=== PATIENT | female | born 1945 | race Caucasian/White ===

== ENCOUNTER 2017-01-31 00:27 | Observation (INO) | payer MEDICARE ==
[2017-01-31] MEDS ORDERED: NITRO-BID 2% UD PACKETS TOP ONE (00:33)
[2017-01-31] MEDS ORDERED: Ativan 2 MG/1 ML VIAL IV ONE ×2 (00:39→01:40)
[2017-01-31] MEDS ORDERED: NITRO-BID 2% UD PACKETS ONE (00:41)
[2017-01-31] MEDS ORDERED: Ativan 2 MG/1 ML VIAL ONE ×2 (00:42→01:44)
--- NOTE | 2017-01-31 00:45 | ERPHSYRPT ---
- History of Present Illness Time Seen by Provider: 01/31/17 00:32 Historian: patient, family, EMS Exam Limitations: no limitations Physician History: patient unable to sleep the past two nights due to restless leg syndrome; get anxious; tonight developed some CP and sob mostly releived with ASA and NTG enroute; SOB resolved as well; no recent travel or exposures; hx of low K+; no trauma; no fever; some nausea; also upset because a good friend recently and the is tomorrow Timing/Duration: today (exacerbated by cp and sob), yesterday (onset), gradual onset, worse Activities at Onset: rest Quality: aching Location: epigastric Chest Pain Radiation: no radiation Severity of Pain-Max: moderate Severity of Pain-Current: mild Modifying Factors: Improves With: nitroglycerin (helps), aspirin (helps), sitting up (helps), other (restless leg aggravates) Associated Symptoms: nausea, shortness of breath Prior Chest Pain/Cardiac Workup: no prior chest pain Nitro Today/Relief: 0.4 mg x 1, provided by EMS Aspirin Treatment Today: 81 mg x 4, provided by EMS Allergies/Adverse Reactions: etodolac Allergy (Severe, Verified 01/31/17 00:58) Shortness of Breath risedronate sodium [From Actonel] Allergy (Severe, Verified 01/31/17 00:58) Hives adhesive tape Allergy (Verified 01/31/17 00:58) latex Adverse Reaction (Intermediate, Verified 01/31/17 00:58) Rash Home Medications: Gabapentin 300 mg PO TID #0 11/14/12 [History] Paroxetine HCl [Paxil] 40 mg PO DAILY 06/28/15 [History] Trazodone HCl 50 mg [Desyrel 50 mg] 50 mg PO HSPRN PRN 06/28/15 [History] Atorvastatin Calcium [Lipitor 40Mg] 40 mg PO HS 07/04/16 [History] Ferrous Sulfate 325 mg [Feosol 325 mg] 325 mg PO DAILY 07/04/16 [History] Omeprazole [Prilosec] 40 mg PO DAILY 07/04/16 [History] Potassium Chloride 10 Meq Tab* [Klor Con 10 MEQ] 10 meq PO DAILY 07/04/16 [ History] Ropinirole HCl [Requip] 1 mg PO BID 07/04/16 [History] Hx Tetanus, Diphtheria Vaccination/Date Given: Yes Hx Influenza Vaccination/Date Given: Yes Hx Pneumococcal Vaccination/Date Given: Yes - Review of Systems Constitutional: No Symptoms Eyes: No Symptoms Ears, Nose, & Throat: No Symptoms Respiratory: Dyspnea (tonight releived with asa and ntg), No Cough, No Cyanosis , No Wheezing Cardiac: Chest Pain, No Edema, No Palpitations, No Syncope, No Orthopnea Abdominal/Gastrointestinal: Nausea, No Abdominal Pain, No Vomiting, No Diarrhea , No Constipation Genitourinary Symptoms: No Symptoms Musculoskeletal: Other (restless leg syndrome), No Back Pain, No Neck Pain, No Fall, No Injury Skin: No Symptoms Neurological: Other (restless leg syndrome), No Dizziness, No Headache, No Paralysis, No Seizure, No Vertigo Psychological: No Symptoms Endocrine: No Symptoms Hematologic/Lymphatic: Easy Bruising Immunological/Allergic: No Symptoms - Past Medical History Pertinent Past Medical History: Yes Neurological History: Other ENT History: Macular Degeneration Cardiac History: Arrhythmia, High Cholesterol, Hypertension Respiratory History: Asthma, Sleep Apnea Endocrine Medical History: Hypothyroidism Musculoskeletal History: Osteoporosis, Rheumatoid Arthritis GI Medical History: Other History: Other Psycho-Social History: Depression Female Reproductive Disorders: Breast Cancer Other Medical History: trouble swallowing. bladder leakage, restless legs. bells palsy. gout - Past Surgical History Past Surgical History: Yes Neuro Surgical History: No Pertinent History Cardiac: Cardiac Catheterization Respiratory: No Pertinent History Gastrointestinal: Appendectomy, Cholecystectomy Genitourinary: No Pertinent History Musculoskeletal: Orthopedic Surgery, Other Female Surgical History: Hysterectomy, Lumpectomy Other Surgical History: nerve from neck to face repaired from bells palsy, bilateral knee replacement, bilator rotator cuff, feet and toes surgeries, R hand carpal tunnel repair. r hand 4 fingers surgery. partial hysterectomy; left hand carpal tunnel surgery. - Social History Smoking Status: Never smoker Exposure to second hand smoke: No Alcohol Use: None Drug Use: none Patient Lives Alone: No Significant Family History: cancer (3 sisters with breast cancer, mother with breast cancer and was diseased from colon cancer. Uncle with breast cancer and mulitple aunts with breast cancer.) - Female History Hx Now: No - Physical Exam General Appearance: mild distress (restless leg syndrome), alert, anxiety, obese Eye Exam: PERRL/EOMI, eyes nml inspection, No photophobia Ears, Nose, Throat Exam: normal ENT inspection, TMs normal, pharynx normal, moist mucous membranes Neck Exam: normal inspection, non-tender, supple, full range of motion, JVD ( slight), lymphadenopathy (isolated post cervical tender right), No meningismus, No carotid bruit Respiratory Exam: lungs clear, airway intact, diminished breath sounds, crackles /rales (few basilar rales), No chest tenderness, No respiratory distress, No rhonchi, No wheezing, No pleural rub Cardiovascular Exam: regular rate/rhythm, normal heart sounds, normal peripheral pulses, capillary refill 2-3 sec, edema (trace), No murmur Gastrointestinal/Abdomen Exam: soft, normal bowel sounds, No tenderness, No guarding, No rebound, No organomegaly Pelvic Exam: deferred Rectal Exam: deferred Back Exam: normal inspection, normal range of motion, No CVA tenderness, No vertebral tenderness, No rash Extremity Exam: normal inspection, normal range of motion, pedal edema (trace), No sosa's sign Neurologic Exam: alert, oriented x 3, cooperative, inspector weights and measures II-XII nml as tested, nml cerebellar function, nml station & gait, No normal mood/affect (anxious) Skin Exam: normal color, warm, dry, No rash, No cyanosis Lymphatic Exam: adenopathy (isolated tender small post cervical node right neck) SpO2 Interpretation: normal SpO2: 95 Oxygen Delivery: Room Air - Course Nursing assessment & vital signs reviewed: Yes EKG Interpreted by Me: RATE (83), Sinus Rhythm, NORMAL AXIS, NORMAL INTERVALS, NORMAL QRS, Non-specific ST Changes, Other (LVH) Rhythm Strip: Rate (82), Normal Sinus Rhythm - Radiology Exams Chest X-ray Interpretation: Interpreted by me, No Pneumonia, No Pneumothorax, Nml Heart Size (borderline), No Infiltrates, Other (poor inspiration with mild congestion) Ordered Tests: Active Orders 24 hr Category Date Time Status Bedrest with BRP/BSC ROUTINE Activity 01/31/17 02:32 Ordered Accucheck ACHS Care 01/31/17 02:31 Ordered Admission/Status Order ROUTINE Care 01/31/17 02:31 Ordered Admission/Status Order ROUTINE Care 01/31/17 02:31 Ordered Call Admit Doctor for Orders ROUTINE Care 01/31/17 02:31 Ordered Dock Worker STAT Care 01/31/17 00:33 Active Code Status Order ROUTINE Care 01/31/17 02:31 Ordered Code Status Order ROUTINE Care 01/31/17 02:32 Ordered EKG-ER Only STAT Care 01/31/17 00:33 Active IV Care Q6H Care 01/31/17 02:31 Ordered IV Care Q6H Care 01/31/17 02:32 Ordered IV Insertion STAT Care 01/31/17 00:33 Active Implement CHF Pathway ROUTINE Care 01/31/17 02:31 Ordered Implement Chest Pain Pathway ROUTINE Care 01/31/17 02:32 Ordered Pulse Oximetry (ED) STAT Care 01/31/17 00:33 Active Re-Check Vital Signs STAT Care 01/31/17 00:33 Active Hiro Hose, Apply ROUTINE Care 01/31/17 02:31 Ordered Hiro Hose, Apply ROUTINE Care 01/31/17 02:32 Ordered Telemetry ROUTINE Care 01/31/17 02:31 Ordered Telemetry ROUTINE Care 01/31/17 02:32 Ordered Weight,Daily 0600 Care 01/31/17 02:31 Ordered Weight,Daily 0600 Care 01/31/17 02:32 Ordered 1800 Calorie ADA Diet 01/31/17 Breakfast Ordered CHEST 1 VIEW (PORTABLE) Stat Exams 01/31/17 00:34 Taken BMP AM.LAB Lab 01/31/17 04:00 Ordered CBC AM.LAB Lab 01/31/17 04:00 Ordered CBC W DIFF Stat Lab 01/31/17 00:52 Completed CMP Stat Lab 01/31/17 00:52 Completed D-DIMER QUANTITATION Stat Lab 01/31/17 00:52 Completed LIPID PROFILE AM.LAB Lab 01/31/17 04:00 Ordered MAGNESIUM Stat Lab 01/31/17 00:52 Completed NT PRO BNP AM.LAB Lab 01/31/17 04:00 Ordered NT PRO BNP Stat Lab 01/31/17 00:52 Completed PROTIME WITH INR Stat Lab 01/31/17 00:52 Completed TROPONIN Q3H Lab 01/31/17 00:52 Completed TROPONIN Q3H Lab 01/31/17 03:45 Ordered TROPONIN Q3H Lab 01/31/17 06:45 Ordered TROPONIN Q3H Lab 01/31/17 09:45 Ordered TROPONIN Q3H Lab 01/31/17 12:45 Ordered EKG Q8HX2,QAMX3,PRN RT 01/31/17 02:32 Ordered Oxygen NASAL CANNULA 2 lpm RT 01/31/17 02:31 Ordered Pulse Oximetry OVERNIGHT RT 01/31/17 02:33 Ordered Pulse Oximetry Q4H RT 01/31/17 02:32 Ordered Transfer Order Routine Transfer 01/31/17 02:30 Ordered Medication Summary Generic Name Dose Route Start Last Admin Trade Name Freq PRN Reason Stop Dose Admin Sodium Chloride 1,000 mls @ 50 mls/hr 01/31/17 00:45 01/31/17 00:51 Sodium Chloride 0.9% 1000 Ml IV 03/02/17 00:44 50 mls/hr .Q20H FRIEDA Administration Potassium Chloride 40 meq 01/31/17 10:00 01/31/17 01:54 Potassium Chl 40 Meq/30 Ml Oral Solution PO 03/02/17 09:59 40 meq DAILY FRIEDA Administration Discontinued Medications Generic Name Dose Route Start Last Admin Trade Name Freq PRN Reason Stop Dose Admin Furosemide 40 mg 01/31/17 01:40 01/31/17 01:54 Lasix 40 Mg/4 Ml IV 01/31/17 01:41 40 mg STAT ONE Administration Furosemide Confirm 01/31/17 01:44 Lasix 40 Mg/4 Ml Administered 01/31/17 01:45 Dose 40 mg .ROUTE .STK-MED ONE Lorazepam 1 mg 01/31/17 00:39 01/31/17 00:51 Ativan 2 Mg/1 Ml Vial IV 01/31/17 00:40 1 mg STAT ONE Administration Lorazepam Confirm 01/31/17 00:42 Ativan 2 Mg/1 Ml Vial Administered 01/31/17 00:43 Dose 2 mg .ROUTE .STK-MED ONE Lorazepam 1 mg 01/31/17 01:40 01/31/17 01:54 Ativan 2 Mg/1 Ml Vial IV 01/31/17 01:41 1 mg STAT ONE Administration Lorazepam Confirm 01/31/17 01:44 Ativan 2 Mg/1 Ml Vial Administered 01/31/17 01:45 Dose 2 mg .ROUTE .STK-MED ONE Nitroglycerin 1 gm 01/31/17 00:33 01/31/17 00:51 Nitro-Bid 2% Ud Packets TOP 01/31/17 00:34 1 gm STAT ONE Administration Nitroglycerin Confirm 01/31/17 00:41 Nitro-Bid 2% Ud Packets Administered 01/31/17 00:42 Dose 1 gm .ROUTE .STK-MED ONE Lab/Rad Data: Laboratory Result Diagrams 01/31/17 00:52 01/31/17 00:52 Laboratory Results 01/31/17 01/31/17 01/31/17 Range/Units 00:52 00:52 00:52 WBC (4.0-10.5) K/mm3 RBC (4.1-5.4) M/mm3 Hgb (12.0-16.0) gm/dl Hct (35-47) % MCV (78-100) fl MCH (26-32) pg MCHC (32-36) g/dl RDW (11.5-14.0) % Plt Count (150-450) K/mm3 MPV (6-9.5) fl Gran % (36.0-66.0) % Lymphocytes % (24.0-44.0) % Monocytes % (0.0-12.0) % Eosinophils % (0.00-5.0) % Basophils % (0.0-0.4) % Basophils # (0-0.4) INR 1.01 (0.8-3.0) D-Dimer 0.356 (0.00-0.49) mg/L Sodium 142 (136-145) mEq/L Potassium 3.6 (3.5-5.1) mEq/L Chloride 108 H (98-107) mEq/L Carbon Dioxide 23.0 (21-32) mEq/L Anion Gap 14.1 (5-15) MEQ/L BUN 22 H (9-20) mg/dL Creatinine 1.16 (0.55-1.30) mg/dl Estimated GFR 49 ML/MIN Glucose 108 (70-110) MG/DL Calcium 9.0 (8.5-10.1) mg/dL Magnesium 1.9 (1.8-2.4) mg/dL Total Bilirubin 0.3 (0.2-1.0) mg/dL AST 13 L (15-37) U/L ALT 14 (12-78) U/L Alkaline Phosphatase 103 (46-116) U/L Troponin I < 0.017 (0.000-0.056) ng/ml NT-Pro-B Natriuret Pep 332 H (0-125) pg/ml Serum Total Protein 6.5 (6.4-8.2) gm/dL Albumin 3.6 (3.4-5.0) g/dL 01/31/17 Range/Units 00:52 WBC 6.9 (4.0-10.5) K/mm3 RBC 3.96 L (4.1-5.4) M/mm3 Hgb 11.8 L (12.0-16.0) gm/dl Hct 36.0 (35-47) % MCV 90.9 (78-100) fl MCH 29.7 (26-32) pg MCHC 32.8 (32-36) g/dl RDW 14.0 (11.5-14.0) % Plt Count 254 (150-450) K/mm3 MPV 9.7 H (6-9.5) fl Gran % 51.8 (36.0-66.0) % Lymphocytes % 34.7 (24.0-44.0) % Monocytes % 9.3 (0.0-12.0) % Eosinophils % 3.9 (0.00-5.0) % Basophils % 0.3 (0.0-0.4) % Basophils # 0.02 (0-0.4) INR (0.8-3.0) D-Dimer (0.00-0.49) mg/L Sodium (136-145) mEq/L Potassium (3.5-5.1) mEq/L Chloride (98-107) mEq/L Carbon Dioxide (21-32) mEq/L Anion Gap (5-15) MEQ/L BUN (9-20) mg/dL Creatinine (0.55-1.30) mg/dl Estimated GFR ML/MIN Glucose (70-110) MG/DL Calcium (8.5-10.1) mg/dL Magnesium (1.8-2.4) mg/dL Total Bilirubin (0.2-1.0) mg/dL AST (15-37) U/L ALT (12-78) U/L Alkaline Phosphatase (46-116) U/L Troponin I (0.000-0.056) ng/ml NT-Pro-B Natriuret Pep (0-125) pg/ml Serum Total Protein (6.4-8.2) gm/dL Albumin (3.4-5.0) g/dL reviewed - Progress Progress: improved (with meds), re-examined Air Movement: good Progress Note: 01/31/17 01:27 some improvement with meds; still restless; no pain; no sob 01/31/17 02:27 not getting enough releif with meds; Dr Haas director river [facility] consulted and will admit ; patient and family notified Blood Culture(s) Obtained: No Antibiotics given: No Discussed with .: Waldo (consulted and will admit) Will see patient in: hospital (observation) Counseled pt/family regarding: lab results, diagnosis, need for follow-up, rad results - Departure Time of Disposition: 02:29 Departure Disposition: Observation Clinical Impression: HTN (hypertension), Type 2 diabetes mellitus, Anxiety, Depression, Morbid obesity, CHF (congestive heart failure), Restless leg syndrome Condition: Serious Critical Care Time: No Referrals: MARIA ANTONIA HURT [Primary Care Provider] - Instructions: Heart Failure
[2017-01-31] MEDS: Sodium Chloride 0.9% 1000 ML 1,000 ML IV SCH ×2 (00:51→21:04)
[2017-01-31 00:55] LABS: BASOPHIL % 0.3 % (0.0-0.4); Eosinophil % 3.9 % (0.00-5.0); Granulocytes % 51.8 % (36.0-66.0); Lymphocytes % 34.7 % (24.0-44.0); Mean Cell Volume 90.9 fl (78-100); Mean Platelet Volume 9.7 fl (6-9.5); Monocytes % 9.3 % (0.0-12.0); Platelet Count 254 K/mm3 (150-450); Red Blood Count 3.96 M/mm3 (4.1-5.4); White Blood Count 6.9 K/mm3 (4.0-10.5)
[2017-01-31 00:57] LABS: Mean Corpuscular Hemoglobin 29.7 pg (26-32)
[2017-01-31 01:10] LABS: INR 1.01 (0.8-3.0); PROTIME 11.3 SECONDS (9.95-12.35)
[2017-01-31 01:27] LABS: ALBUMIN 3.6 g/dL (3.4-5.0); ANION GAP 14.1 MEQ/L (5-15); BILIRUBIN,TOTAL 0.3 mg/dL (0.2-1.0); MAGNESIUM 1.9 mg/dL (1.8-2.4); Potassium 3.6 mEq/L (3.5-5.1); Total Protein 6.5 gm/dL (6.4-8.2)
[2017-01-31] MEDS ORDERED: Lasix 40 MG/4 ML IV ONE (01:40)
[2017-01-31] MEDS ORDERED: Lasix 40 MG/4 ML ONE (01:44)
[2017-01-31] MEDS: POTASSIUM CHL 40 MEQ/30 ML ORAL SOLUTION PO SCH (01:54)
[2017-01-31] MEDS ORDERED: Zofran 4 MG/2 ML VIAL IV PRN (02:31)
[2017-01-31] MEDS ORDERED: MILK OF MAGNESIA 30 ML PO PRN (02:31)
[2017-01-31] MEDS ORDERED: Senokot-S Tablet PO PRN (02:31)
[2017-01-31] MEDS ORDERED: MAALOX ES 30 ML UNIT DOSE PO PRN (02:31)
[2017-01-31] MEDS ORDERED: TYLENOL 325 MG PO PRN (02:31)
[2017-01-31 07:37] LABS: Mean Cell Volume 91.3 fl (78-100); Mean Platelet Volume 9.7 fl (6-9.5); Platelet Count 229 K/mm3 (150-450); Red Blood Count 3.91 M/mm3 (4.1-5.4); White Blood Count 6.5 K/mm3 (4.0-10.5)
[2017-01-31 08:10] LABS: Mean Corpuscular Hemoglobin 29.6 pg (26-32)
[2017-01-31 08:24] LABS: ANION GAP 10.2 MEQ/L (5-15); Potassium 4.4 mEq/L (3.5-5.1)
--- NOTE | 2017-01-31 08:27 | XRAY ---
Indication: Chest pain and short of breath. Comparison: July 04, 2016. Portable chest underinflated today accentuating the cardiopulmonary structures. Subtle right base infiltrate versus atelectasis. Upper lungs clear. Bony thorax intact again with mild osteopenia and degenerative changes. Impression: Underinflated chest. Subtle right base infiltrate versus atelectasis. Correlate clinically.
[2017-01-31] MEDS ORDERED: PROVENTIL COMMON CANISTER IH PRN (09:05)
[2017-01-31] MEDS: Ecotrin 325 MG PO SCH (10:16)
[2017-01-31] MEDS: NORVASC 5 MG PO SCH (12:44)
--- NOTE | 2017-01-31 13:57 | PCM.HP ---
History of Present Illness - Chief Complaint Chief Complaint: CHF, C/P R/O History of Present Illness: is a 71 year old female pt of Dr. Patterson who was seen in office yesterday. She was unable to sleep for 2 nights because of RLS. Dr. Patterson wanted to do a cardiac workup. Pt ended up going home, then returning to see DR. Carroll in ER last night. She is a difficult historian, but apparently she was having 10/10 substernal chest pain, non radiating, with SOB. No diaphoresis , + palpitations. She was admitted to rule out [place]. Currently she is somnolent, wakes to light touch, oriented when awake but drifts off during her own sentences. She states she fell yesterday at home; denies syncope. She states she hasn't slept for 3 days and she's tired. She states her leg are not bothering her when she's asleep. It doesn't appear that she received any medicines that would cause hypersomnolence. - Review of Systems Constitutional: Chills Respiratory: Short Of Breath Cardiac: Chest Pain, Edema (LE bilat) Musculoskeletal: Fall Psychological: No Anxiety, No Depression, No Suicidal Ideations Hematologic/Lymphatic: Easy Bruising All Other Systems: Reviewed and Negative Medications & Allergies Home Medications: Home Medication List Gabapentin 300 mg PO TID #0 11/14/12 [History Confirmed 01/31/17] Paroxetine HCl [Paxil] 40 mg PO DAILY 06/28/15 [History Confirmed 01/31/17] Trazodone HCl 50 mg [Desyrel 50 mg] 50 mg PO HSPRN PRN 06/28/15 [History Confirmed 01/31/17] Atorvastatin Calcium [Lipitor 40Mg] 40 mg PO HS 07/04/16 [History Confirmed ] Ferrous Sulfate 325 mg [Feosol 325 mg] 325 mg PO DAILY 07/04/16 [History Confirmed 01/31/17] Omeprazole [Prilosec] 40 mg PO DAILY 07/04/16 [History Confirmed 01/31/17] Potassium Chloride 10 Meq Tab* [Klor Con 10 MEQ] 10 meq PO DAILY 07/04/16 [ History Confirmed 01/31/17] Ropinirole HCl [Requip] 1 mg PO BID 07/04/16 [History Confirmed 01/31/17] Albuterol 2.5 mg/3 ml Neb [Proventil 2.5 mg/3 ml Neb] 2.5 mg IH Q4HRT PRN #150 ml 07/08/16 [Rx Confirmed 01/31/17] Cefdinir [Omnicef 300 mg] 300 mg PO BID #12 capsule 07/08/16 [Rx Confirmed 01/31/17] Hydrochlorothiazide 25 mg [hydroDIURIL 25 MG] 25 mg PO DAILY #30 tablet [Rx Confirmed 01/31/17] Insulin Glargine [Lantus Insulin] 10 unit SQ AMINSULIN #0 unit 07/08/16 [Rx Confirmed 01/31/17] Losartan Potassium 50 mg [Cozaar 50 MG] 50 mg PO HS #30 tablet 07/08/16 [ Rx Confirmed 01/31/17] Metoprolol Succinate 50 mg [Toprol Xl 50 MG] 50 mg PO HS #30 tablet.sa [Rx Confirmed 01/31/17] Prednisone 20 mg [Deltasone 20 mg] 20 mg PO UD #9 tablet 07/08/16 [Rx Confirmed 01/31/17] Doxycycline Monohydrate 100 mg PO BID 01/31/17 [History Confirmed 01/31/17] Levothyroxine Sodium 75 Mcg [Synthroid 75 Mcg] 75 mcg PO DAILY 01/31/17 [ History Confirmed 01/31/17] Allergies/Adverse Reactions: Allergies Allergy/AdvReac Type Severity Reaction Status Date / Time etodolac Allergy Severe Shortness Verified 01/31/17 00:58 of Breath risedronate sodium Allergy Severe Hives Verified 01/31/17 00:58 [From Actonel] adhesive tape Allergy Verified 01/31/17 00:58 latex AdvReac Intermediate Rash Verified 01/31/17 00:58 - Past Medical History Past Medical History: Yes Neurological History: Other ENT History: Macular Degeneration Cardiac History: Arrhythmia, High Cholesterol, Hypertension Respiratory History: Asthma, Sleep Apnea Endocrine Medical History: Hypothyroidism Musculoskelatal History: Osteoporosis, Rheumatoid Arthritis GI Medical History: Other History: Other Pyscho-Social History: Depression Reproductive Disorders: Breast Cancer Comment: trouble swallowing. bladder leakage, restless legs. bells palsy. gout - Female History Hx Last Menstrual Period: N/A Are you now?: No - Past Surgical History Past Surgical History: Yes Neuro Surgical History: No Pertinent History Cardiac History: Cardiac Catheterization Respiratory Surgery: No Pertinent History GI Surgical History: Appendectomy, Cholecystectomy Genitourinary Surgical Hx: No Pertinent History Musculskeletal Surgical Hx: Orthopedic Surgery, Other Female Surgical History: Hysterectomy, Lumpectomy Other Surgical History: nerve from neck to face repaired from bells palsy, bilateral knee replacement, bilator rotator cuff, feet and toes surgeries, R hand carpal tunnel repair. r hand 4 fingers surgery. partial hysterectomy; left hand carpal tunnel surgery. - Social History Smoking Status: Never smoker Exposure to second hand smoke: No Alcohol: None Drug Use: none Significant Family History: cancer (3 sisters with breast cancer, mother with breast cancer and was diseased from colon cancer. Uncle with breast cancer and mulitple aunts with breast cancer.) - Physical Exam Vital Signs: Vital Signs - 24 hr Temp Pulse Pulse Resp BP Pulse Ox 01/31/17 12:00 93 L 01/31/17 11:37 98.3 F 90 20 184/80 93 L 01/31/17 09:05 86 18 98 01/31/17 08:00 94 L 01/31/17 07:36 97.5 F 88 18 171/74 94 L 01/31/17 03:36 98.2 F 83 18 166/73 96 01/31/17 02:35 95 01/31/17 02:32 96 01/31/17 02:08 87 189/90 01/31/17 00:52 97.7 F 82 84 20 154/73 94 L Results - Labs Lab/Micro Results: Accuchecks Accucheck Value: 116 Accucheck Value: 102 Lab Results-Last 24 Hours 01/31/17 01/31/17 01/31/17 Range/Units 04:05 07:00 07:00 WBC 6.5 (4.0-10.5) K/mm3 RBC 3.91 L (4.1-5.4) M/mm3 Hgb 11.6 L (12.0-16.0) gm/dl Hct 35.7 (35-47) % MCV 91.3 (78-100) fl MCH 29.6 (26-32) pg MCHC 32.5 (32-36) g/dl RDW 14.0 (11.5-14.0) % Plt Count 229 (150-450) K/mm3 MPV 9.7 H (6-9.5) fl Sodium (136-145) mEq/L Potassium (3.5-5.1) mEq/L Chloride (98-107) mEq/L Carbon Dioxide (21-32) mEq/L Anion Gap (5-15) MEQ/L BUN (9-20) mg/dL Creatinine (0.55-1.30) mg/dl Estimated GFR ML/MIN Glucose (70-110) MG/DL Calcium (8.5-10.1) mg/dL Troponin I < 0.017 < 0.017 (0.000-0.056) ng/ml NT-Pro-B Natriuret Pep (0-125) pg/ml Triglycerides (30-200) mg/dL Cholesterol (100-200) mg/dL LDL Cholesterol (5-99) mg/dL HDL Cholesterol (35-60) mg/dL Heart Disease Risk Ratio 01/31/17 01/31/17 01/31/17 Range/Units 07:00 10:00 12:20 WBC (4.0-10.5) K/mm3 RBC (4.1-5.4) M/mm3 Hgb (12.0-16.0) gm/dl Hct (35-47) % MCV (78-100) fl MCH (26-32) pg MCHC (32-36) g/dl RDW (11.5-14.0) % Plt Count (150-450) K/mm3 MPV (6-9.5) fl Sodium 142 (136-145) mEq/L Potassium 4.4 (3.5-5.1) mEq/L Chloride 108 H (98-107) mEq/L Carbon Dioxide 28.0 (21-32) mEq/L Anion Gap 10.2 (5-15) MEQ/L BUN 20 (9-20) mg/dL Creatinine 1.21 (0.55-1.30) mg/dl Estimated GFR 47 ML/MIN Glucose 101 (70-110) MG/DL Calcium 8.8 (8.5-10.1) mg/dL Troponin I < 0.017 < 0.017 (0.000-0.056) ng/ml NT-Pro-B Natriuret Pep 262 H (0-125) pg/ml Triglycerides 51 (30-200) mg/dL Cholesterol 116 (100-200) mg/dL LDL Cholesterol 53 (5-99) mg/dL HDL Cholesterol 64 H (35-60) mg/dL Heart Disease Risk Ratio 1.8 Accuchecks Accucheck Value: 116 Accucheck Value: 102 - Radiology Impressions Radiology Exams & Impressions: Radiology Procedures Category Date Time Status ECHO W/2D AND DOPPLER [US] Routine Exams 01/31/17 10:00 Ordered - Other Procedures and Tests Respiratory Therapy 01/31/17 09:05 Respiratory MDI UD 02/01/17 05:00 EKG ONCE 02/02/17 05:00 EKG DAILY 02/03/17 05:00 EKG DAILY Assessment/Plan (1) Chest pain Current Visit: Yes Status: Acute Assessment & Plan: first two troponins are negative; would await 3 more to definitively rule out [place]. Code(s): R07.9 - CHEST PAIN, UNSPECIFIED (2) Somnolence Current Visit: Yes Status: Acute Assessment & Plan: She is easily rousable and conversant, but drifts to sleep in the middles of sentences. States she's very tired because she hasn't slept the last 3 days. Will monitor vital signs, if concerns would do further workup but I think the somnolence is reasonable in light of her history. (3) Restless leg syndrome Current Visit: Yes Status: Chronic (4) HTN (hypertension) Current Visit: Yes Status: Chronic Code(s): I10 - ESSENTIAL (PRIMARY) HYPERTENSION (5) Type 2 diabetes mellitus Current Visit: Yes Status: Chronic (6) ELANA (obstructive sleep apnea) Current Visit: No Status: Chronic Assessment & Plan: Will see if pt needs CPAP machine for her stay here. Code(s): G47.33 - OBSTRUCTIVE SLEEP APNEA (ADULT) (PEDIATRIC) (7) DVT prophylaxis Current Visit: No Status: Acute Code(s): [id number] -
[2017-01-31] MEDS ORDERED: PROVENTIL 2.5 MG/3 ML NEB IH PRN (16:02)
[2017-01-31] MEDS ORDERED: DESYREL 50 MG PO PRN (16:02)
[2017-01-31] MEDS ORDERED: Requip 0.5 MG ONE (16:31)
[2017-01-31] MEDS: SYNTHROID 75 MCG PO SCH (16:43)
[2017-01-31] MEDS: Paxil 20 MG PO SCH (16:43)
[2017-01-31] MEDS: NEURONTIN 300 MG PO SCH ×2 (16:44→22:07)
[2017-01-31] MEDS: Requip 0.5 MG PO SCH ×2 (16:44→22:07)
[2017-01-31] MEDS: Lantus Insulin SQ SCH (16:44)
[2017-01-31] MEDS: Protonix 40MG Tablet PO SCH (16:44)
[2017-01-31] MEDS ORDERED: APRESOLINE 20 MG/ML INJ IV PRN (19:55)
[2017-01-31] MEDS ORDERED: LIPITOR 40MG PO SCH (22:00)
[2017-01-31] MEDS ORDERED: Toprol Xl 50 MG PO SCH (22:00)
[2017-01-31] MEDS ORDERED: NON-FORMULARY ITEM (Ropinirole Hcl [Requip] 1 MG) PO SCH (22:00)
[2017-01-31] MEDS ORDERED: Cozaar 50 MG PO SCH (22:00)
--- NOTE | 2017-02-01 06:18 | PCM.DS ---
Discharge Summary Date of Admission: 01/31/17 03:06 Admitting Physician: INDIGO LANDRY Primary Care Provider: MARIA ANTONIA HURT Allergies Allergies etodolac Allergy (Severe, Verified 01/31/17 00:58) Shortness of Breath risedronate sodium [From Actonel] Allergy (Severe, Verified 01/31/17 00:58) Hives adhesive tape Allergy (Verified 01/31/17 00:58) latex Adverse Reaction (Intermediate, Verified 01/31/17 00:58) Rash Hospital Summary - Hospital Course Hospital Course: patient was admitted with chest pain, hadn't slept well and was extremely fatigued at the initial admission. doing well now. no chest pain overnight, DE ruled out. slept well and feels well today. has no complaints. - Vitals & Intake/Output Vital Signs: Vital Signs Temperature 98.3 F 02/01/17 03:48 Pulse Rate 89 02/01/17 03:48 Respiratory Rate 18 02/01/17 03:48 Blood Pressure 129/60 02/01/17 03:48 O2 Sat by Pulse Oximetry 95 02/01/17 04:00 Intake & Output: Intake & Output 01/29/17 01/30/17 01/31/17 02/01/17 11:59 11:59 11:59 11:59 Intake Total 1021 2459 Output Total 1999 1950 Balance -979 509 Weight 114.26 kg - Lab Result Diagrams: 01/31/17 07:00 01/31/17 07:00 Lab Results-Last 24 Hrs: Accuchecks Date 01/31/17 Time 21:50 Accucheck Value: 124 Accucheck Value: 106 Accucheck Value: 116 Accucheck Value: 102 Lab Results-Last 24 Hours 01/31/17 01/31/17 01/31/17 Range/Units 07:00 07:00 07:00 WBC 6.5 (4.0-10.5) K/mm3 RBC 3.91 L (4.1-5.4) M/mm3 Hgb 11.6 L (12.0-16.0) gm/dl Hct 35.7 (35-47) % MCV 91.3 (78-100) fl MCH 29.6 (26-32) pg MCHC 32.5 (32-36) g/dl RDW 14.0 (11.5-14.0) % Plt Count 229 (150-450) K/mm3 MPV 9.7 H (6-9.5) fl Sodium 142 (136-145) mEq/L Potassium 4.4 (3.5-5.1) mEq/L Chloride 108 H (98-107) mEq/L Carbon Dioxide 28.0 (21-32) mEq/L Anion Gap 10.2 (5-15) MEQ/L BUN 20 (9-20) mg/dL Creatinine 1.21 (0.55-1.30) mg/dl Estimated GFR 47 ML/MIN Glucose 101 (70-110) MG/DL Calcium 8.8 (8.5-10.1) mg/dL Troponin I < 0.017 (0.000-0.056) ng/ml NT-Pro-B Natriuret Pep 262 H (0-125) pg/ml Triglycerides 51 (30-200) mg/dL Cholesterol 116 (100-200) mg/dL LDL Cholesterol 53 (5-99) mg/dL HDL Cholesterol 64 H (35-60) mg/dL Heart Disease Risk Ratio 1.8 01/31/17 01/31/17 Range/Units 10:00 12:20 WBC (4.0-10.5) K/mm3 RBC (4.1-5.4) M/mm3 Hgb (12.0-16.0) gm/dl Hct (35-47) % MCV (78-100) fl MCH (26-32) pg MCHC (32-36) g/dl RDW (11.5-14.0) % Plt Count (150-450) K/mm3 MPV (6-9.5) fl Sodium (136-145) mEq/L Potassium (3.5-5.1) mEq/L Chloride (98-107) mEq/L Carbon Dioxide (21-32) mEq/L Anion Gap (5-15) MEQ/L BUN (9-20) mg/dL Creatinine (0.55-1.30) mg/dl Estimated GFR ML/MIN Glucose (70-110) MG/DL Calcium (8.5-10.1) mg/dL Troponin I < 0.017 < 0.017 (0.000-0.056) ng/ml NT-Pro-B Natriuret Pep (0-125) pg/ml Triglycerides (30-200) mg/dL Cholesterol (100-200) mg/dL LDL Cholesterol (5-99) mg/dL HDL Cholesterol (35-60) mg/dL Heart Disease Risk Ratio Micro Results-Entire Visit: Accuchecks Date 01/31/17 Time 21:50 Accucheck Value: 124 Accucheck Value: 106 Accucheck Value: 116 Accucheck Value: 102 - Radiology Exams Ordered Rad Exams-Entire Visit: Radiology Procedures Category Date Time Status ECHO W/2D AND DOPPLER [US] Routine Exams 01/31/17 10:00 Ordered - Procedures and Test Procedures and Tests throughout Hospitalization: Therapy Orders & Screens 01/31/17 02:32 EKG Q8HX2,QAMX3,PRN Comment: 01/31/17 03:50 RT Screen per Nursing Assess ONCE Comment: Protocol Order Physician Instructions: Greater than 3 points order RT Admission Screen Reason For Exam: Triggered on Admission Diagnosis: CHF, C/P R/O Diagnosis: CHF, C/P R/O Pneumonia: No Home O2: No Asthma: Yes CHF: Yes Home CPAP/BIPAP: No Home Nebs/MDI: Yes Total Points: 12 01/31/17 08:37 EKG ROUTINE Comment: Diagnosis: CHF, C/P R/O 01/31/17 09:05 Respiratory MDI UD Comment: ALBUTEROL MDI Q4PRN Diagnosis: CHF, C/P R/O 01/31/17 16:10 Respiratory Nebulizer UD Comment: albuterol q4prn Diagnosis: CHF, C/P R/O 02/01/17 05:00 EKG ONCE Comment: Diagnosis: CHF, C/P R/O 02/02/17 05:00 EKG DAILY Comment: Diagnosis: CHF, C/P R/O 02/03/17 05:00 EKG DAILY Comment: Diagnosis: CHF, C/P R/O Discharge Exam General Appearance: no apparent distress, alert Respiratory Exam: normal breath sounds, lungs clear, No respiratory distress Cardiovascular Exam: regular rate/rhythm, normal heart sounds Gastrointestinal/Abdomen Exam: soft, No tenderness, No mass Extremity Exam: normal inspection, normal range of motion Final Diagnosis/Problem List - Final Discharge Diagnosis/Problem (1) Chest pain Current Visit: Yes Status: Acute (2) Restless leg syndrome Current Visit: Yes Status: Chronic (3) Type 2 diabetes mellitus Current Visit: Yes Status: Chronic - Discharge Disposition: Home, Self-Care Condition: Good Prescriptions: Continue Gabapentin 300 mg PO TID #0 Trazodone HCl 50 mg [Desyrel 50 mg] 50 mg PO HSPRN PRN PRN Reason: Insomnia Paroxetine HCl [Paxil] 40 mg PO DAILY Atorvastatin Calcium [Lipitor 40Mg] 40 mg PO HS Ropinirole HCl [Requip] 1 mg PO BID Potassium Chloride 10 Meq Tab* [Klor Con 10 MEQ] 10 meq PO DAILY Omeprazole [Prilosec] 40 mg PO DAILY Ferrous Sulfate 325 mg [Feosol 325 mg] 325 mg PO DAILY Losartan Potassium 50 mg [Cozaar 50 MG] 50 mg PO HS #30 tablet Prednisone 20 mg [Deltasone 20 mg] 20 mg PO UD #9 tablet Insulin Glargine [Lantus Insulin] 10 unit SQ AMINSULIN #0 unit Cefdinir [Omnicef 300 mg] 300 mg PO BID #12 capsule Metoprolol Succinate 50 mg [Toprol Xl 50 MG] 50 mg PO HS #30 tablet.sa Hydrochlorothiazide 25 mg [hydroDIURIL 25 MG] 25 mg PO DAILY #30 tablet Albuterol 2.5 mg/3 ml Neb [Proventil 2.5 mg/3 ml Neb] 2.5 mg IH Q4HRT PRN #150 ml PRN Reason: Shortness Of Breath/Wheezing Levothyroxine Sodium 75 Mcg [Synthroid 75 Mcg] 75 mcg PO DAILY Discontinued Doxycycline Monohydrate 100 mg PO BID Follow up with: MARIA ANTONIA HURT [Primary Care Provider] -
[2017-02-01 06:58] VITALS: PULSE 78
[2017-02-01] MEDS: Lantus Insulin SQ SCH (07:50)
[2017-02-01] MEDS: POTASSIUM CHL 40 MEQ/30 ML ORAL SOLUTION PO SCH (09:29)
[2017-02-01] MEDS: Requip 0.5 MG PO SCH (09:29)
[2017-02-01] MEDS: Ecotrin 325 MG PO SCH (09:29)
[2017-02-01] MEDS: Paxil 20 MG PO SCH (09:29)
[2017-02-01] MEDS: NEURONTIN 300 MG PO SCH (09:29)
[2017-02-01] MEDS: Protonix 40MG Tablet PO SCH (09:29)
[2017-02-01] MEDS: SYNTHROID 75 MCG PO SCH (09:29)
[2017-02-01] MEDS: NORVASC 5 MG PO SCH (09:30)
[2017-02-01] MEDS ORDERED: hydroDIURIL 25 MG PO SCH (10:00)
[2017-02-01] MEDS ORDERED: ENOXAPARIN SODIUM SQ SCH (10:00)
[2017-02-01] MEDS ORDERED: NON-FORMULARY ITEM (Omeprazole [Prilosec] 40 MG) PO SCH (10:00)
[2017-02-01] MEDS ORDERED: NON-FORMULARY ITEM (Paroxetine Hcl [Paxil] 40 MG) PO SCH (10:00)
[2017-02-01] MEDS ORDERED: Klor Con 10 MEQ PO SCH (10:00)
[2017-02-01 11:26] VITALS: BP 189/77; O2SAT 94
== END 2017-02-01 11:15 | disposition home or self-care (01) ==
LOC: ED 00:27 → MED SURG 03:06
PROVIDERS: ADMIT Family Medicine; ATTEND Internal Medicine
DX: R07.9 Chest pain, unspecified (principal); G25.81 Restless legs syndrome; E11.9 Type 2 diabetes mellitus without complications; Z79.4 Long term (current) use of insulin; I10 Essential (primary) hypertension; J45.909 Unspecified asthma, uncomplicated; G47.33 Obstructive sleep apnea (adult) (pediatric); E03.9 Hypothyroidism, unspecified; M81.0 Age-related osteoporosis without current pathological fracture; M06.9 Rheumatoid arthritis, unspecified; E78.00 Pure hypercholesterolemia, unspecified; G51.0 Bell's palsy; M10.9 Gout, unspecified; R40.0 Somnolence; Z79.899 Other long term (current) drug therapy; Z85.3 Personal history of malignant neoplasm of breast; Z80.3 Family history of malignant neoplasm of breast; Z80.0 Family history of malignant neoplasm of digestive organs
CPT/HCPCS: 36000; 36415; 71010; 80048; 80053; 80061; 82962; 83721; 83735; 83880; 84484; 85025; 85027; 85379; 85610; 93005; 93041; 93268; 94760; 96360; 96361; 96374; 96375; 96376; 99285; G0378; J0360; J1650; J1940; J2060; A9270-GY

== ENCOUNTER 2018-11-19 14:07 | Observation (INO) | payer MEDICARE ==
[2018-11-19] MEDS ORDERED: TYLENOL 325 MG PO PRN (14:32)
[2018-11-19] MEDS ORDERED: Colace 100 MG PO PRN (14:36)
[2018-11-19] MEDS ORDERED: Sodium Chloride 0.9% 10 ML FLUSH Syringe IV PRN (14:45)
[2018-11-19] MEDS ORDERED: solu-MEDROL 125 MG IV ONE (15:00)
[2018-11-19 15:05] LABS: BASOPHIL % 0.7 % (0.0-0.4); Basophil (Absolute #) 0.03 (0-0.4); Eosinophil % 6.4 % (0.00-5.0); Eosinophil (Absolute #) 0.26 (0-0.5); Granulocyte Absolute (ANC) 1.92 (1.4-6.9); Granulocytes % 47.4 % (36.0-66.0); Hematocrit 39.9 % (35-47); Hemoglobin 12.9 gm/dl (12.0-16.0); Lymphocyte (Absolute #) 1.24 (1.0-4.6); Lymphocytes % 30.5 % (24.0-44.0); Mean Cell Volume 90.3 fl (78-100); Mean Corpuscular Hemoglobin 29.2 pg (26-32); Mean Corpuscular Hgb Concent. 32.3 g/dl (32-36); Mean Platelet Volume 9.8 fl (6-9.5); Monocyte (Absolute #) 0.61 (0.0-1.3); Platelet Count 220 K/mm3 (150-450); Red Blood Count 4.42 M/mm3 (4.1-5.4); Red Cell Distribution Width 13.1 % (11.5-14.0); White Blood Count 4.1 K/mm3 (4.0-10.5)
[2018-11-19 15:25] LABS: ALBUMIN 4.4 g/dL (3.5-5.0); ANION GAP 13.9 MEQ/L (5-15); BILIRUBIN,TOTAL 0.6 mg/dL (0.2-1.3); Calcium 9.2 mg/dL (8.4-10.2); Creatinine 1 1.2 mg/dL (0.52-1.04); Potassium 3.9 mmol/L (3.5-5.1); Total Protein 7.2 g/dL (6.3-8.2)
[2018-11-19 15:38] LABS: INFLUENZA A NEGATIVE (NEGATIVE); INFLUENZA B NEGATIVE (NEGATIVE); RESPIRATORY SYNCTIAL VIRUS NEGATIVE (Negative)
--- NOTE | 2018-11-19 15:39 | XRAY ---
Indication: Nonproductive cough. COPD exacerbation. Comparison: January 01, 2018. PA/lateral chest again demonstrates a few incidental calcified granulomas and minimal left upper lobe fibrosis/scarring. No focal infiltrate, consolidation, or large effusion. Heart and mediastinal structures within normal limits. Bony thorax intact again with mild osteopenia and moderate degenerative changes. Impression: Stable nonacute chest with chronic features.
[2018-11-19] MEDS: ROCEPHIN 1 Gm-D5w 50 ml Bag** 1 G/50 ML IVPB IV SCH (15:40)
[2018-11-19] MEDS: Zithromax 500 MG/ 250 ML NaCl Premix 500 MG/250 ML IVPB IV SCH (16:16)
[2018-11-19] MEDS ORDERED: DESYREL 50 MG PO PRN (16:31)
[2018-11-19] MEDS ORDERED: PROVENTIL 2.5 MG/3 ML NEB IH PRN (16:31)
[2018-11-19] MEDS: Tessalon Perles 100 MG PO PRN ×2 (17:45→22:53)
[2018-11-19] MEDS: DUONEB 0.5-3 MG/3 ml Neb IH SCH ×2 (20:47→20:48)
[2018-11-19] MEDS ORDERED: NovoLOG Insulin SQ PRN (21:44)
[2018-11-19] MEDS ORDERED: ATORVASTATIN CALCIUM 40 MG PO SCH (22:00)
[2018-11-19] MEDS ORDERED: solu-MEDROL 125 MG IV SCH (22:00)
[2018-11-19] MEDS: NEURONTIN 300 MG PO SCH (22:31)
[2018-11-19] MEDS: ZOCOR 20MG PO SCH (22:31)
[2018-11-19] MEDS: Sodium Chloride 0.9% 10 ML FLUSH Syringe IV SCH (22:32)
[2018-11-19] MEDS: Cozaar 50 MG PO SCH (22:32)
[2018-11-19] MEDS: Toprol Xl 50 MG PO SCH (22:32)
[2018-11-20] MEDS: xanAX 0.5 MG PO PRN ×3 (00:47→21:14)
[2018-11-20] MEDS: DUONEB 0.5-3 MG/3 ml Neb IH SCH ×5 (01:10→14:31)
[2018-11-20] MEDS: Sodium Chloride 0.9% 10 ML FLUSH Syringe IV SCH ×3 (06:53→21:13)
[2018-11-20] MEDS: Lantus Insulin SQ SCH (07:51)
[2018-11-20] MEDS: ROCEPHIN 1 Gm-D5w 50 ml Bag** 1 G/50 ML IVPB IV SCH (09:54)
[2018-11-20] MEDS: ENOXAPARIN SODIUM SQ SCH (09:55)
[2018-11-20] MEDS: SYNTHROID 100 MCG PO SCH (09:56)
[2018-11-20] MEDS: Tessalon Perles 100 MG PO PRN ×2 (09:56→16:30)
[2018-11-20] MEDS: Paxil 20 MG PO SCH (09:56)
[2018-11-20] MEDS: NEURONTIN 300 MG PO SCH ×3 (09:57→21:13)
[2018-11-20] MEDS: Protonix 40MG Tablet PO SCH (09:57)
[2018-11-20] MEDS: Klor Con 10 MEQ PO SCH (09:57)
[2018-11-20] MEDS ORDERED: NON-FORMULARY ITEM (Omeprazole [Prilosec] 40 MG) PO SCH (10:00)
[2018-11-20] MEDS ORDERED: NON-FORMULARY ITEM (Paroxetine Hcl [Paxil] 40 MG) PO SCH (10:00)
[2018-11-20] MEDS: Zithromax 500 MG/ 250 ML NaCl Premix 500 MG/250 ML IVPB IV SCH (15:51)
[2018-11-20] MEDS ORDERED: NORVASC 5 MG PO ONE (16:59)
[2018-11-20] MEDS: Cozaar 50 MG PO SCH (21:13)
[2018-11-20] MEDS: Toprol Xl 50 MG PO SCH (21:14)
[2018-11-20] MEDS: ZOCOR 20MG PO SCH (21:14)
[2018-11-21] MEDS: Sodium Chloride 0.9% 10 ML FLUSH Syringe IV SCH (06:50)
[2018-11-21] MEDS: Lantus Insulin SQ SCH (08:06)
[2018-11-21] MEDS ORDERED: Apresoline 25 MG TABLET PO PRN (09:35)
[2018-11-21] MEDS: ENOXAPARIN SODIUM SQ SCH (09:53)
[2018-11-21] MEDS: Paxil 20 MG PO SCH (09:54)
[2018-11-21] MEDS: SYNTHROID 100 MCG PO SCH (09:54)
[2018-11-21] MEDS: ROCEPHIN 1 Gm-D5w 50 ml Bag** 1 G/50 ML IVPB IV SCH (09:54)
[2018-11-21] MEDS: NEURONTIN 300 MG PO SCH (09:54)
[2018-11-21] MEDS: Klor Con 10 MEQ PO SCH (09:54)
[2018-11-21] MEDS: Protonix 40MG Tablet PO SCH (09:54)
[2018-11-21] MEDS ORDERED: hydroDIURIL 25 MG PO SCH (10:00)
[2018-11-21] MEDS ORDERED: NORVASC 5 MG PO SCH (10:00)
--- NOTE | 2018-11-21 11:10 | PCM.DCORD ---
- Discharge Discharge Date: 11/21/18 Disposition: Home, Self-Care Condition: Good Prescriptions: New Docusate Sodium 100 mg [Colace 100 MG] 100 mg PO BID PRN PRN #30 capsule PRN Reason: Constipation Losartan Potassium 100 mg PO DAILY #30 tablet Amlodipine Besylate 5 mg [Norvasc 5 mg] 5 mg PO DAILY #30 tablet Cefdinir [Omnicef] 300 mg PO BID #10 capsule Benzonatate [Tessalon Perle] 2 cap PO TID PRN #60 capsule PRN Reason: Cough Azithromycin 250 mg [Zithromax 250 MG TABLET] 250 mg PO DAILY #3 tablet Continue Gabapentin 300 mg PO TID #0 Trazodone HCl 50 mg [Desyrel 50 mg] 50 mg PO HSPRN PRN PRN Reason: Insomnia Paroxetine HCl [Paxil] 40 mg PO DAILY Atorvastatin Calcium [Lipitor 40Mg] 40 mg PO HS Potassium Chloride 10 Meq Tab* [Klor Con 10 MEQ] 10 meq PO DAILY Omeprazole [Prilosec] 40 mg PO DAILY Insulin Glargine [Lantus Insulin] 10 unit SQ AMINSULIN #0 unit Metoprolol Succinate 50 mg [Toprol Xl 50 MG] 50 mg PO HS #30 tablet.sa Albuterol 2.5 mg/3 ml Neb [Proventil 2.5 mg/3 ml Neb] 2.5 mg IH Q4HRT PRN #150 ml PRN Reason: Shortness Of Breath/Wheezing Levothyroxine Sodium 100 Mcg [Synthroid 100 Mcg] 100 mcg PO DAILY Discontinued Losartan Potassium 50 mg [Cozaar 50 MG] 50 mg PO HS #30 tablet Prednisone 20 mg [Deltasone 20 mg] 20 mg PO UD #9 tablet Cefdinir [Omnicef 300 mg] 300 mg PO BID #12 capsule Follow up with: MARIA ANTONIA HURT [Primary Care Provider] - 1 Week
[2018-11-21 11:43] VITALS: BP 151/68; PULSE 54; O2SAT 97
--- NOTE | 2018-11-22 11:40 | HP ---
HISTORY OF PRESENT ILLNESS: This is a 72 year-old patient of mine who presented to the clinic yesterday complaining of cough without relief and temperature up to 103.2F. She reports the cough started on Thursday. She also felt very tired. She reports Albuterol helped some but not as much as it should. She also reports sneezing, rhinorrhea, headache and coughing. She has had close contact with her great-grandchildren who had respiratory syncytial virus. She reports she did have a flu immunization this year. Overnight the patient reports the cough is better with the Tessalon Perles but she continues to have some cough and feels fatigued. She also has increased stress at home with her son who has metastatic cancer and is currently in the hospital. She reports at this time there would be no one at home to help take care of her but tomorrow there would be. REVIEW OF SYSTEMS: No constipation. No diarrhea except one episode on Thursday. No dysuria. No lower extremity swelling. No rashes. Otherwise the review of systems is negative. PAST MEDICAL HISTORY: Seasonal allergies, breast cancer, chronic obstructive pulmonary disease, depression, diabetes mellitus type 2, hyperlipidemia, hypertension, gout, narcolepsy, restless leg syndrome, mild sleep apnea. PAST SURGICAL HISTORY: Appendectomy. Cholecystectomy. Hysterectomy. Left hand surgery. Right and left shoulder surgery. Left knee replacement. Foot surgery. Upper endoscopy with dilatation. Right hand surgery. Right knee replacement. Breast lumpectomy. MEDICATIONS: Please see the medication reconciliation form which I reviewed. ALLERGIES: EODOLAC. RISEDRONATE SODIUM. ADHESIVE TAPE. LATEX. SOCIAL HISTORY: She lives alone. She does not currently smoke. No alcohol use. FAMILY HISTORY: Noncontributory. PHYSICAL EXAMINATION: VITAL SIGNS: Temperature current 97F, temperature max 98.2F, heart rate 67 to 90, respiratory rate 18 to 22, blood pressure 129 to 147 over 71 to 90, weight 117.4 kg. Oxygen saturation 91 to 96% on room air. GENERAL: The patient is sitting up in her chair, a pleasant talkative lady in no acute distress, frequently coughing. CVS: She has a regular rate and rhythm. CHEST: Prolonged expiration but equal breath sounds. No crackles. No wheezes. ABDOMEN: Soft, nontender, nondistended with normal bowel sounds. EXTREMITIES: No clubbing, cyanosis or edema. SKIN: Warm, dry and intact. LABORATORY DATA AND TESTS: CBC within normal limits. CMP with creatinine 1.2. Influenza A/B and respiratory syncytial virus negative. Chest x-ray with no acute findings. Please see the radiologist report for the full dictation. ASSESSMENT AND PLAN: 1) CHRONIC OBSTRUCTIVE PULMONARY DISEASE EXACERBATION: She was started on IV steroids but developed some jitteriness with these and trouble sleeping so those were discontinued last night. She was also started on ceftriaxone and azithromycin. She reports Ana Lilia Adamson are helping, will continue her breathing treatments. She has improved since yesterday. 2) DIABETES MELLITUS TYPE 2: Will continue with home dose of insulin as well as Accu-Chek and sliding scale if needed. 3) HYPERTENSION: Will continue with her home antihypertensive. 4) HISTORY OF DEPRESSION: Continue with her home medications. 5) DEEP VENOUS THROMBOSIS PROPHYLAXIS: Will use Lovenox 40 mg subcutaneously daily and CARLOS hose.
--- NOTE | 2018-11-23 15:37 | DS ---
DISCHARGE DIAGNOSES: 1) ACUTE CHRONIC OBSTRUCTIVE PULMONARY DISEASE EXACERBATION. 2) DIABETES MELLITUS TYPE 2. 3) HYPERTENSION. 4) DEEP VENOUS THROMBOSIS PROPHYLAXIS. 5) CODE STATUS. DISCHARGE PHYSICAL EXAMINATION: VITALS: Temperature current 97.0F, temperature max 98.4F, heart rate 52 to 77, respiratory rate 16 to 18, blood pressure 128 to 195 over 60 to 82 currently 128/60. Oxygen saturation 93 to 95% on room air. GENERAL: The patient is a pleasant talkative lady sitting up in bed in no acute distress. CVS: Heart has a regular rate and rhythm. No murmurs, gallops or rubs are appreciated. CHEST: Clear to auscultation bilaterally. No crackles or wheezes are appreciated. No tachypnea. No retractions. She has occasional cough that is worse when she talks. ABDOMEN: Soft, nontender, nondistended with normal bowel sounds. EXTREMITIES: No clubbing, cyanosis or edema. SKIN: Warm, dry and intact. HOSPITAL COURSE: 1) ACUTE CHRONIC OBSTRUCTIVE PULMONARY DISEASE EXACERBATION: She was started on IV ceftriaxone and azithromycin as well as IV Solu-Medrol. The IV Solu-Medrol was discontinued on her first night as she developed jitteriness and difficulty sleeping. She has done well with the [employer]. I am going to discharge her to take five more days of Cefdinir 300 mg p.o. b.i.d. and three more days of azithromycin 250 mg p.o. daily and have her follow up with me closely in the clinic. She will continue Albuterol if needed at home. 2) DIABETES MELLITUS TYPE 2: I will have her continue her home dose of Lantus and Accu-Chek's at home as hemoglobin was less than 6 here. 3) HYPERTENSION: Her blood pressure was high at times during the hospitalization at the time of discharge was normal. I had increased her losartan from 50 to 100 mg and added amlodipine, will plan to discharge her on her home dose of metoprolol, losartan 100 mg daily and amlodipine 5 mg daily. 4) DEEP VENOUS THROMBOSIS PROPHYLAXIS: She was on Lovenox while she was here. 5) CODE STATUS: I discussed her code status with her and if something would happen suddenly where she would stop breathing or her heart would stop beating she does not want to be resuscitated. DISCHARGE MEDICATIONS: Please see the discharge order. DISPOSITION: The patient was discharged to home in good condition to follow up with me this week.
== END 2018-11-21 11:50 | disposition home or self-care (01) ==
LOC: MED SURG 14:07
PROVIDERS: ADMIT Internal Medicine; ATTEND Internal Medicine
DX: J44.1 Chronic obstructive pulmonary disease with (acute) exacerbation (principal); R51 Headache; E11.9 Type 2 diabetes mellitus without complications; R53.83 Other fatigue; I10 Essential (primary) hypertension; Z79.01 Long term (current) use of anticoagulants
CPT/HCPCS: 36415; 71046; 80053; 82962; 83036; 83880; 85025; 87040; 87631; 93005; 94760; G0378; J0456; J0696; J1650; J2930; A9270-GY

== ENCOUNTER 2019-02-15 17:03 | Emergency (ER) | payer MEDICARE ==
[2019-02-15 18:05] VITALS: BP 198/82; PULSE 73; O2SAT 98
--- NOTE | 2019-02-15 18:44 | ERPHSYRPT ---
- History of Present Illness Source: patient Exam Limitations: no limitations Patient Subjective Stated Complaint: went to [facility] for an increase in her restless legs x 4 days. aramis gets SOB due to the increases twitching.denies CP. has had similar episodes in the past. Triage Nursing Assessment: alert and anxious. ray has had an increase of her restless legs x 4 days. only thing that helps is walking. the legs hurt at the knees. has notbeen able to sleep due to the increased twitching.. nothing has changed 4 days ago that would increase her symptoms. states becomes SOB due to the increase in twitching. pain in her knees. Physician History: Pt is a 73 y/o female that presented from [facility]. She has a h/o RLS, and is on Requip. Today she had myoclonic jerks, and it was so bad, she could not sleep or walk. She states, that Dr Hurt, could not see her today, so she went to [facility]. Pt denies any other complains, and her symproms are just those described. Timing/Duration: yesterday Severity: moderate Modifying Factors: Improves With: nothing Associated Symptoms: denies symptoms Allergies/Adverse Reactions: etodolac Allergy (Severe, Verified 01/31/17 00:58) Shortness of Breath risedronate sodium [From Actonel] Allergy (Severe, Verified 01/31/17 00:58) Hives adhesive tape Allergy (Verified 01/31/17 00:58) latex Adverse Reaction (Intermediate, Verified 01/31/17 00:58) Rash Home Medications: Gabapentin 300 mg PO TID #0 11/14/12 [History] Paroxetine HCl [Paxil] 40 mg PO DAILY 06/28/15 [History] Trazodone HCl 50 mg [Desyrel 50 mg] 50 mg PO HSPRN PRN 06/28/15 [History] Atorvastatin Calcium [Lipitor 40Mg] 40 mg PO HS 07/04/16 [History] Omeprazole [Prilosec] 40 mg PO DAILY 07/04/16 [History] Potassium Chloride 10 Meq Tab* [Klor Con 10 MEQ] 10 meq PO DAILY 07/04/16 [ History] Levothyroxine Sodium 100 Mcg [Synthroid 100 Mcg] 100 mcg PO DAILY 11/19/18 [History] Hx Tetanus, Diphtheria Vaccination/Date Given: Yes Hx Influenza Vaccination/Date Given: Yes Hx Pneumococcal Vaccination/Date Given: Yes - Review of Systems Constitutional: No Fever, No Chills Eyes: No Symptoms Ears, Nose, & Throat: No Symptoms Respiratory: No Cough, No Dyspnea Cardiac: No Chest Pain, No Edema, No Syncope Abdominal/Gastrointestinal: No Abdominal Pain, No Nausea, No Vomiting, No Diarrhea Genitourinary Symptoms: No Dysuria Musculoskeletal: No Back Pain, No Neck Pain Skin: No Rash Neurological: Other (myoclonic jerks.) Psychological: No Symptoms - Past Medical History Pertinent Past Medical History: Yes Neurological History: Other ENT History: Cataracts, Macular Degeneration Cardiac History: Arrhythmia, High Cholesterol, Hypertension Respiratory History: Asthma, COPD, Pneumonia, Sleep Apnea Endocrine Medical History: Hypothyroidism Musculoskeletal History: Osteoporosis, Rheumatoid Arthritis GI Medical History: No Pertinent History History: Other Psycho-Social History: Depression Female Reproductive Disorders: Breast Cancer Other Medical History: bladder leakage, restless legs. bells palsy. gout. Left sided Breast CA - Past Surgical History Past Surgical History: Yes Neuro Surgical History: Other Cardiac: Cardiac Catheterization Respiratory: No Pertinent History Gastrointestinal: Appendectomy, Cholecystectomy Genitourinary: No Pertinent History Musculoskeletal: Orthopedic Surgery, Other Female Surgical History: Hysterectomy, Lumpectomy Other Surgical History: nerve from neck to face repaired from bells palsy, bilateral knee replacement, bilator rotator cuff, feet and toes surgeries, R hand carpal tunnel repair. r hand 4 fingers surgery. partial hysterectomy; left hand carpal tunnel surgery. - Social History Smoking Status: Never smoker Exposure to second hand smoke: No Alcohol Use: None Drug Use: none Patient Lives Alone: No Significant Family History: cancer (3 sisters with breast cancer, mother with breast cancer and was diseased from colon cancer. Uncle with breast cancer and mulitple aunts with breast cancer.) - Female History Hx Now: No - Nursing Vital Signs Nursing Vital Signs: Initial Vital Signs Temperature 98.1 F 02/15/19 17:14 Pulse Rate 81 02/15/19 17:14 Respiratory Rate 20 02/15/19 17:14 Blood Pressure 178/92 02/15/19 17:14 O2 Sat by Pulse Oximetry 97 02/15/19 17:14 Pain Scale Pain Intensity 8 - Physical Exam General Appearance: no apparent distress, alert Eye Exam: PERRL/EOMI, eyes nml inspection Ears, Nose, Throat Exam: normal ENT inspection, TMs normal, pharynx normal, moist mucous membranes Neck Exam: normal inspection, non-tender, supple, full range of motion Respiratory Exam: normal breath sounds, lungs clear, No respiratory distress Cardiovascular Exam: regular rate/rhythm, normal heart sounds, normal peripheral pulses Gastrointestinal/Abdomen Exam: soft, normal bowel sounds, No tenderness, No mass Back Exam: normal inspection, normal range of motion, No CVA tenderness, No vertebral tenderness Extremity Exam: normal inspection, normal range of motion, pelvis stable Neurologic Exam: alert, oriented x 3, cooperative, etiquette teacher II-XII nml as tested, other (Myoclonic jerks.) SpO2: 98 - Course Nursing assessment & vital signs reviewed: Yes Ordered Tests: Medication Summary Generic Name Dose Route Start Last Admin Trade Name Freq PRN Reason Stop Dose Admin Pregabalin 100 mg 02/15/19 22:00 02/15/19 18:02 Lyrica 100mg PO 03/17/19 21:59 100 mg BID FRIEDA Administration - Progress Progress: improved Progress Note: 02/15/19 18:[address] Hurt, as pt did not know what meds she is taking, and complains just of RLS. Dr Hurt, would like to see the pt in the office tomorrow. I gave the pt Lyrica 100mg PO once, and pt improved quickly. She is cleared for d/c, and should f/u with Dr Hurt. 02/15/19 18:44 Discussed with : Leonardo Will see patient in: office Counseled pt/family regarding: need for follow-up - Departure Departure Disposition: Home Clinical Impression: Myoclonic jerking Condition: Stable Critical Care Time: No Referrals: MARIA ANTONIA HURT [Primary Care Provider] - Additional Instructions: ZF/U with Dr Hurt tomorrow. Pt did improve with Lyrica 100mg once.
[2019-02-15] MEDS ORDERED: LYRICA 100MG PO SCH (22:00)
== END 2019-02-15 18:50 | disposition home or self-care (01) ==
LOC: ED 17:03
DX: G25.3 Myoclonus (principal); J44.9 Chronic obstructive pulmonary disease, unspecified; I10 Essential (primary) hypertension; G47.30 Sleep apnea, unspecified; E03.8 Other specified hypothyroidism; M81.0 Age-related osteoporosis without current pathological fracture; M06.9 Rheumatoid arthritis, unspecified; Z85.3 Personal history of malignant neoplasm of breast; G51.0 Bell's palsy; M10.9 Gout, unspecified; Z79.899 Other long term (current) drug therapy
CPT/HCPCS: 93005; 99283; A9270-GY

== ENCOUNTER 2019-04-28 22:55 | Inpatient (IN) | payer MEDICARE ==
[2019-04-28] MEDS ORDERED: MORPHINE SULFATE 2 MG INJ IV ONE (22:58)
[2019-04-28] MEDS ORDERED: NITRO-BID 2% UD PACKETS TOP ONE (22:58)
[2019-04-28] MEDS ORDERED: Pepcid 20 MG VIAL IV ONE ×2 (22:58→23:08)
[2019-04-28] MEDS ORDERED: PROTONIX 40 MG IV IV ONE ×2 (23:01→23:08)
[2019-04-28] MEDS ORDERED: NITRO-BID 2% UD PACKETS ONE (23:08)
[2019-04-28] MEDS ORDERED: MORPHINE SULFATE 2 MG INJ ONE (23:09)
[2019-04-28 23:11] LABS: BASOPHIL % 0.3 % (0.0-0.4); Basophil (Absolute #) 0.02 (0-0.4); Eosinophil % 8.3 % (0.00-5.0); Eosinophil (Absolute #) 0.52 (0-0.5); Granulocytes % 49.1 % (36.0-66.0); Hematocrit 37.4 % (35-47); Hemoglobin 12.4 gm/dl (12.0-16.0); Lymphocyte (Absolute #) 1.95 (1.0-4.6); Mean Cell Volume 91.2 fl (78-100); Mean Corpuscular Hemoglobin 30.2 pg (26-32); Mean Corpuscular Hgb Concent. 33.2 g/dl (32-36); Mean Platelet Volume 9.9 fl (6-9.5); Monocyte (Absolute #) 0.71 (0.0-1.3); Monocytes % 11.3 % (0.0-12.0); Platelet Count 238 K/mm3 (150-450); Red Cell Distribution Width 13.7 % (11.5-14.0); White Blood Count 6.3 K/mm3 (4.0-10.5)
[2019-04-28 23:18] LABS: INR 0.99 (0.8-3.0); PROTIME 11.2 SECONDS (9.95-12.35)
[2019-04-28 23:21] LABS: PTT 31.7 SECONDS (25.3-37.0)
[2019-04-28 23:31] LABS: ALKALINE PHOSPHATASE 99 U/L (38-126); ANION GAP 10.6 MEQ/L (5-15); BLOOD UREA NITROGEN 20 mg/dL (7-17); CHLORIDE 108 mmol/L (98-107); Calcium 8.9 mg/dL (8.4-10.2); Carbon Dioxide 26 mmol/L (22-30); Creatinine 1 0.88 mg/dL (0.52-1.04); Glucose 108 mg/dL (74-106); NT PRO BNP 810 pg/mL (0-900); Potassium 4.2 mmol/L (3.5-5.1); SGOT/AST 21 U/L (14-36); SGPT/ALT 14 U/L (0-35); SODIUM 141 mmol/L (137-145); Total Protein 6.8 g/dL (6.3-8.2)
[2019-04-29] MEDS ORDERED: REQUIP 2MG TAB PO STA (00:11)
[2019-04-29] MEDS ORDERED: LEVOFLOXACIN 750MG/150ML D5W 750 MG/150 ML BAG IV STA (01:13)
[2019-04-29] MEDS ORDERED: DUONEB 0.5-3 MG/3 ml Neb IH ONE ×3 (01:14→05:42)
[2019-04-29] MEDS ORDERED: LEVOFLOXACIN 750MG/150ML D5W 750 MG/150 ML BAG IV ONE (01:54)
--- NOTE | 2019-04-29 05:10 | ERPHSYRPT ---
- History of Present Illness Historian: patient Exam Limitations: no limitations Patient Subjective Stated Complaint: pt states she has restless legs and has not been able to sleep for the last 4 nights d/t jerking in legs. states she feels like shes going to fall when walking. states she has been having chest pain for last 2 days Triage Nursing Assessment: pt alert and oriented. pt ambulated to er and then stated she couldnt walk any farther d/t weakness. held in hallway per staff and transported rest of the way to room by wheelchair. respirations nonlabored. lungs cta. heart rate 80on monitor, sinus rhythm. pt jerking in bed frequesnlty. moves legs at all times. Physician History: Pt is a 73 y/o female that presented to the ED with chest pain. Pt states, she has RLS, and on the last 4 days she could not get any relief, and today she developed chest pain, and had to come to the ED. Pt denies F/C/S. No palpitations. No dysuria, frquency and urgency. She does have severe cough, SOB, and chest pressure. Timing/Duration: day(s) Activities at Onset: other (Severe RLS) Quality: pressure, tightness Chest Pain Radiation: no radiation Severity of Pain-Max: moderate Severity of Pain-Current: moderate Modifying Factors: Improves With: breathing, coughing Associated Symptoms: shortness of breath, cough Prior Chest Pain/Cardiac Workup: no prior chest pain Nitro Today/Relief: provided by ED Aspirin Treatment Today: 81 mg x 1 Allergies/Adverse Reactions: etodolac Allergy (Severe, Verified 04/28/19 23:22) Shortness of Breath risedronate sodium [From Actonel] Allergy (Severe, Verified 04/28/19 23:22) Hives adhesive tape Allergy (Verified 04/28/19 23:22) latex Adverse Reaction (Intermediate, Verified 04/28/19 23:22) Rash Home Medications: Gabapentin 300 mg PO TID #0 11/14/12 [History] Trazodone HCl 50 mg [Desyrel 50 mg] 50 mg PO HSPRN PRN 06/28/15 [History] Omeprazole [Prilosec] 40 mg PO DAILY 07/04/16 [History] Potassium Chloride 10 Meq Tab* [Klor Con 10 MEQ] 10 meq PO DAILY 07/04/16 [ History] Levothyroxine Sodium 100 Mcg [Synthroid 100 Mcg] 100 mcg PO DAILY 11/19/18 [History] Insulin Glargine [Lantus Insulin] 50 unit SQ AMINSULIN 04/28/19 [History] Losartan Potassium 50 mg PO DAILY 04/28/19 [History] Ropinirole 2Mg [Requip 2Mg Tab] 2 mg PO HS 04/28/19 [History] Hx Tetanus, Diphtheria Vaccination/Date Given: Yes Hx Influenza Vaccination/Date Given: Yes Hx Pneumococcal Vaccination/Date Given: Yes Immunizations Up to Date: Yes - Review of Systems Constitutional: No Fever, No Chills Eyes: No Symptoms Ears, Nose, & Throat: No Symptoms Respiratory: Cough, Dyspnea on Exertion (TENORIO), Wheezing Cardiac: Chest Pain, No Edema, No Syncope Abdominal/Gastrointestinal: No Abdominal Pain, No Nausea, No Vomiting, No Diarrhea Genitourinary Symptoms: No Dysuria Musculoskeletal: No Back Pain, No Neck Pain Neurological: Other (RLS), No Dizziness, No Focal Weakness, No Sensory Changes - Past Medical History Pertinent Past Medical History: Yes Neurological History: Other ENT History: Cataracts, Macular Degeneration Cardiac History: Arrhythmia, High Cholesterol, Hypertension Respiratory History: Asthma, COPD, Pneumonia, Sleep Apnea Endocrine Medical History: Hypothyroidism Musculoskeletal History: Osteoporosis, Rheumatoid Arthritis GI Medical History: No Pertinent History History: Other Psycho-Social History: Depression Female Reproductive Disorders: Breast Cancer Other Medical History: bladder leakage, restless legs. bells palsy. gout. Left sided Breast CA - Past Surgical History Past Surgical History: Yes Neuro Surgical History: Other Cardiac: Cardiac Catheterization Respiratory: No Pertinent History Gastrointestinal: Appendectomy, Cholecystectomy Genitourinary: No Pertinent History Musculoskeletal: Orthopedic Surgery, Other Female Surgical History: Hysterectomy, Lumpectomy Other Surgical History: nerve from neck to face repaired from bells palsy, bilateral knee replacement, bilator rotator cuff, feet and toes surgeries, R hand carpal tunnel repair. r hand 4 fingers surgery. partial hysterectomy; left hand carpal tunnel surgery. - Social History Smoking Status: Never smoker Exposure to second hand smoke: No Alcohol Use: None Drug Use: none Patient Lives Alone: Yes Significant Family History: cancer (3 sisters with breast cancer, mother with breast cancer and was diseased from colon cancer. Uncle with breast cancer and mulitple aunts with breast cancer.) - Nursing Vital Signs Nursing Vital Signs: Initial Vital Signs Pulse Rate 85 04/28/19 22:58 Respiratory Rate 22 04/28/19 22:58 O2 Sat by Pulse Oximetry 97 04/28/19 22:58 Pain Scale Pain Intensity 8 - Physical Exam General Appearance: moderate distress Eye Exam: PERRL/EOMI, eyes nml inspection Ears, Nose, Throat Exam: normal ENT inspection, moist mucous membranes Neck Exam: normal inspection, non-tender, supple, full range of motion Respiratory Exam: diminished breath sounds, prolonged expirations Cardiovascular Exam: regular rate/rhythm, normal heart sounds Gastrointestinal/Abdomen Exam: soft, No tenderness, No mass Back Exam: normal inspection, No CVA tenderness, No vertebral tenderness Extremity Exam: normal inspection, normal range of motion, other (Myoclonic jerks) Neurologic Exam: alert, oriented x 3, cooperative, normal mood/affect, sensation nml, other (Myoclonic jerks), No motor deficits SpO2 Interpretation: normal SpO2: 98 O2 Delivery: Room Air - Course EKG Interpreted by Me: RATE (84 bpm), Non-specific ST Changes (Pt with myoclonic jerks during EKG) - CT Exams Chest CT Interpretation: Tele-radiologist Report (Linear atelectasis and/or fibrosis in the lungs b/l.) Ordered Tests: Active Orders 24 hr Category Date Time Status Business Analytics Director STAT Care 04/28/19 22:59 Active EKG-ER Only STAT Care 04/28/19 22:58 Active IV Insertion STAT Care 04/28/19 22:58 Active Oxygen-ED Only Nasal Cannula 2 lpm Care 04/28/19 22:58 Active CHEST 1 VIEW (PORTABLE) Stat Exams 04/29/19 00:51 Taken CHEST WITH CONTRAST [CT] Stat Exams 04/29/19 02:25 Taken CBC W DIFF Stat Lab 04/28/19 23:00 Completed CMP Stat Lab 04/28/19 23:00 Completed NT PRO BNP Stat Lab 04/28/19 23:00 Completed PROTIME WITH INR Stat Lab 04/28/19 23:00 Completed PTT Stat Lab 04/28/19 23:00 Completed TROPONIN Q3H Lab 04/28/19 23:00 Completed TROPONIN Q3H Lab 04/29/19 02:29 Completed TROPONIN Q3H Lab 04/29/19 04:55 Received TROPONIN Q3H Lab 04/29/19 08:00 Ordered TROPONIN Q3H Lab 04/29/19 11:00 Ordered TSH, 3RD Generation Stat Lab 04/28/19 23:00 Completed Respiratory Therapy Assessment DAILY RT 04/29/19 01:21 Completed Medication Summary Discontinued Medications Generic Name Dose Route Start Last Admin Trade Name Selvinq PRN Reason Stop Dose Admin Albuterol/Ipratropium 3 ml 04/29/19 01:14 04/29/19 01:19 Duoneb 0.5-3 Mg/3 Ml Neb IH 04/29/19 01:15 3 ml STAT ONE Administration Albuterol/Ipratropium Confirm 04/29/19 01:18 Duoneb 0.5-3 Mg/3 Ml Neb Administered 04/29/19 01:19 Dose 3 ml IH .STK-MED ONE Famotidine 40 mg 04/28/19 22:58 04/28/19 23:15 Pepcid 20 Mg Vial IV 04/28/19 22:59 40 mg STAT ONE Administration Famotidine Confirm 04/28/19 23:08 Pepcid 20 Mg Vial Administered 04/28/19 23:09 Dose 40 mg IV .STK-MED ONE Levofloxacin/Dextrose 750 mg in 150 mls @ 100 mls/hr 04/29/19 01:13 04/29/19 01:55 Levofloxacin 750mg/150ml D5w IV 04/29/19 02:42 100 ml/hr STAT STA 100 mls/hr Administration Levofloxacin/Dextrose Confirm 04/29/19 01:54 Levofloxacin 750mg/150ml D5w Administered 04/29/19 01:55 Dose 750 mg in 150 mls @ ud IV .STK-MED ONE Morphine Sulfate 2 mg 04/28/19 22:58 04/28/19 23:15 Morphine Sulfate 2 Mg Inj IV 04/28/19 22:59 2 mg STAT ONE Administration Morphine Sulfate Confirm 04/28/19 23:09 Morphine Sulfate 2 Mg Inj Administered 04/28/19 23:10 Dose 2 mg .ROUTE .STK-MED ONE Nitroglycerin 1 gm 04/28/19 22:58 04/28/19 23:15 Nitro-Bid 2% Ud Packets TOP 04/28/19 22:59 1 gm STAT ONE Administration Nitroglycerin Confirm 04/28/19 23:08 Nitro-Bid 2% Ud Packets Administered 04/28/19 23:09 Dose 1 gm .ROUTE .STK-MED ONE Pantoprazole Sodium 40 mg 04/28/19 23:01 04/28/19 23:15 Protonix 40 Mg Iv IV 04/28/19 23:02 40 mg STAT ONE Administration Pantoprazole Sodium Confirm 04/28/19 23:08 Protonix 40 Mg Iv Administered 04/28/19 23:09 Dose 40 mg IV .STK-MED ONE Ropinirole HCl 2 mg 04/29/19 00:11 04/29/19 00:27 Requip 2mg Tab PO 04/29/19 00:12 2 mg ONCE STA Administration Lab/Rad Data: Laboratory Result Diagrams 04/28/19 23:00 04/28/19 23:00 Laboratory Results 04/29/19 04/28/19 04/28/19 Range/Units 02:29 23:00 23:00 WBC (4.0-10.5) K/mm3 RBC (4.1-5.4) M/mm3 Hgb (12.0-16.0) gm/dl Hct (35-47) % MCV (78-100) fl MCH (26-32) pg MCHC (32-36) g/dl RDW (11.5-14.0) % Plt Count (150-450) K/mm3 MPV (6-9.5) fl Gran % (36.0-66.0) % Eos # (Auto) (0-0.5) Absolute Lymphs (auto) (1.0-4.6) Absolute Monos (auto) (0.0-1.3) Lymphocytes % (24.0-44.0) % Monocytes % (0.0-12.0) % Eosinophils % (0.00-5.0) % Basophils % (0.0-0.4) % Absolute Granulocytes (1.4-6.9) Basophils # (0-0.4) PT (9.95-12.35) SECONDS INR (0.8-3.0) APTT (25.3-37.0) SECONDS Sodium (137-145) mmol/L Potassium (3.5-5.1) mmol/L Chloride (98-107) mmol/L Carbon Dioxide (22-30) mmol/L Anion Gap (5-15) MEQ/L BUN (7-17) mg/dL Creatinine (0.52-1.04) mg/dL Estimated GFR ML/MIN Glucose (74-106) mg/dL Calcium (8.4-10.2) mg/dL Total Bilirubin (0.2-1.3) mg/dL AST (14-36) U/L ALT (0-35) U/L Alkaline Phosphatase (38-126) U/L Troponin I < 0.012 < 0.012 (0.000-0.034) ng/mL NT-Pro-B Natriuret Pep (0-900) pg/mL Serum Total Protein (6.3-8.2) g/dL Albumin (3.5-5.0) g/dL TSH 3rd Generation 12.000 H (0.47-4.68) mIU/L 04/28/19 04/28/19 04/28/19 Range/Units 23:00 23:00 23:00 WBC 6.3 (4.0-10.5) K/mm3 RBC 4.10 (4.1-5.4) M/mm3 Hgb 12.4 (12.0-16.0) gm/dl Hct 37.4 (35-47) % MCV 91.2 (78-100) fl MCH 30.2 (26-32) pg MCHC 33.2 (32-36) g/dl RDW 13.7 (11.5-14.0) % Plt Count 238 (150-450) K/mm3 MPV 9.9 H (6-9.5) fl Gran % 49.1 (36.0-66.0) % Eos # (Auto) 0.52 H (0-0.5) Absolute Lymphs (auto) 1.95 (1.0-4.6) Absolute Monos (auto) 0.71 (0.0-1.3) Lymphocytes % 31.0 (24.0-44.0) % Monocytes % 11.3 (0.0-12.0) % Eosinophils % 8.3 H (0.00-5.0) % Basophils % 0.3 (0.0-0.4) % Absolute Granulocytes 3.10 (1.4-6.9) Basophils # 0.02 (0-0.4) PT 11.2 (9.95-12.35) SECONDS INR 0.99 (0.8-3.0) APTT 31.7 (25.3-37.0) SECONDS Sodium 141 (137-145) mmol/L Potassium 4.2 (3.5-5.1) mmol/L Chloride 108 H (98-107) mmol/L Carbon Dioxide 26 (22-30) mmol/L Anion Gap 10.6 (5-15) MEQ/L BUN 20 H (7-17) mg/dL Creatinine 0.88 (0.52-1.04) mg/dL Estimated GFR > 60.0 ML/MIN Glucose 108 H (74-106) mg/dL Calcium 8.9 (8.4-10.2) mg/dL Total Bilirubin 0.30 (0.2-1.3) mg/dL AST 21 (14-36) U/L ALT 14 (0-35) U/L Alkaline Phosphatase 99 (38-126) U/L Troponin I (0.000-0.034) ng/mL NT-Pro-B Natriuret Pep 810 (0-900) pg/mL Serum Total Protein 6.8 (6.3-8.2) g/dL Albumin 4.0 (3.5-5.0) g/dL TSH 3rd Generation (0.47-4.68) mIU/L - Progress Progress: unchanged Air Movement: fair Progress Note: 04/29/19 05:14 Pt was seen and examined. Her RLS improved with a dose on Requip and Morphine. Pt is still coughing with Duo nebs, and Levaquin. As she still did not improve, and her TSH is 12, I called Dr Abdalla that accepted the pt for admission. Blood Culture(s) Obtained: No Antibiotics given: Yes Discussed with : Rm Will see patient in: hospital (full admit) - Departure Departure Disposition: In-patient Admission Clinical Impression: CAP (community acquired pneumonia) Condition: Stable Critical Care Time: No Referrals: MARIA ANTONIA HURT [Primary Care Provider] - Additional Instructions: Pt will be admitted to the hospital.
[2019-04-29] MEDS ORDERED: Sodium Chloride 0.9% 10 ML FLUSH Syringe IV PRN (05:16)
[2019-04-29] MEDS ORDERED: NovoLOG Insulin SQ PRN (05:16)
[2019-04-29] MEDS ORDERED: DUONEB 0.5-3 MG/3 ml Neb IH SCH (07:00)
[2019-04-29] MEDS: Pepcid 20 MG PO SCH ×2 (08:49→21:28)
[2019-04-29] MEDS: ENOXAPARIN SODIUM SQ SCH (08:49)
[2019-04-29] MEDS ORDERED: PROVENTIL 2.5 MG/3 ML NEB IH PRN (09:11)
[2019-04-29] MEDS ORDERED: DESYREL 50 MG PO PRN (09:11)
--- NOTE | 2019-04-29 09:26 | XRAY ---
Indication: Short of breath. History COPD. Comparison: November 19, 2018. Portable chest less inflated with stable left upper lobe fibrosis/scarring and cardiomegaly. Query new subtle right infrahilar infiltrate versus atelectasis. Bony thorax intact again with osteopenia and degenerative changes. Impression: Query right infrahilar infiltrate versus atelectasis. Cardiomegaly.
--- NOTE | 2019-04-29 09:29 | XRAY ---
Indication: Cough and wheezing. Short of breath. Multiple contiguous axial images obtained through the chest using 100 cc Isovue 370 contrast. Comparison: CT PE study September 27, 2015. Lungs are inflated again with minimal bilateral dependent atelectasis and scattered fibrosis/scarring. New patchy hazy airspace opacities scattered bilaterally without consolidation or effusion. Heart is again enlarged. Aorta remains mildly arteriosclerotic without aneurysm/dissection. Stable small mediastinal calcified nodes. No pathologic mediastinal/hilar lymphadenopathy. Stable small hiatal hernia. Bony thorax intact again with mild degenerative changes throughout the spine. Limited upper abdomen again demonstrates fatty liver and cholecystectomy clips. Impression: 1. New bilateral patchy airspace disease without consolidation/effusion. 2. Stable scattered fibrosis/scarring, cardiomegaly, hiatal hernia, fatty liver, and evidence for old granulomatous disease. Comment: Preliminary interpretation was made by [facility] who does not report airspace opacities, hiatal hernia, and fatty liver. However the interpreting ER clinician does report right lower lobe pneumonia on same-day chest radiograph.
[2019-04-29] MEDS ORDERED: NON-FORMULARY ITEM (Omeprazole [Prilosec] 40 MG) PO SCH (10:00)
[2019-04-29] MEDS ORDERED: NON-FORMULARY ITEM (Losartan Potassium [Losartan Potassium] 50 MG) PO SCH (10:00)
[2019-04-29] MEDS: Protonix 40MG Tablet PO SCH (10:22)
[2019-04-29] MEDS: NEURONTIN 300 MG PO SCH ×3 (10:22→21:28)
[2019-04-29] MEDS: SYNTHROID 112 MCG PO SCH (10:22)
[2019-04-29] MEDS: Klor Con 10 MEQ PO SCH (10:22)
[2019-04-29] MEDS: Cozaar 50 MG PO SCH (10:22)
[2019-04-29] MEDS: Toprol Xl 50 MG PO SCH (21:28)
[2019-04-29] MEDS: REQUIP 2MG TAB PO SCH (21:28)
[2019-04-30] MEDS: LEVOFLOXACIN 750MG/150ML D5W 750 MG/150 ML BAG IV SCH ×2 (00:05→22:07)
[2019-04-30] MEDS: Sodium Chloride 0.9% 10 ML FLUSH Syringe IV SCH ×3 (02:00→22:08)
[2019-04-30 05:47] LABS: Hematocrit 34.6 % (35-47); Mean Cell Volume 93.3 fl (78-100); Mean Corpuscular Hemoglobin 29.6 pg (26-32); Mean Corpuscular Hgb Concent. 31.8 g/dl (32-36); Mean Platelet Volume 10.1 fl (6-9.5); Platelet Count 189 K/mm3 (150-450); Red Blood Count 3.71 M/mm3 (4.1-5.4); Red Cell Distribution Width 13.6 % (11.5-14.0); White Blood Count 5.2 K/mm3 (4.0-10.5)
[2019-04-30 06:06] LABS: ANION GAP 6.3 MEQ/L (5-15); BLOOD UREA NITROGEN 19 mg/dL (7-17); CHLORIDE 108 mmol/L (98-107); Calcium 8.4 mg/dL (8.4-10.2); Carbon Dioxide 28 mmol/L (22-30); Creatinine 1 0.74 mg/dL (0.52-1.04); Glucose 100 mg/dL (74-106); Potassium 4.5 mmol/L (3.5-5.1); SODIUM 138 mmol/L (137-145)
[2019-04-30] MEDS: ENOXAPARIN SODIUM SQ SCH (09:45)
[2019-04-30] MEDS: Klor Con 10 MEQ PO SCH (09:46)
[2019-04-30] MEDS: Protonix 40MG Tablet PO SCH (09:46)
[2019-04-30] MEDS: Cozaar 50 MG PO SCH (09:47)
[2019-04-30] MEDS: NEURONTIN 300 MG PO SCH ×3 (09:47→22:07)
[2019-04-30] MEDS: Pepcid 20 MG PO SCH ×2 (09:47→22:07)
[2019-04-30] MEDS: SYNTHROID 112 MCG PO SCH (09:48)
[2019-04-30] MEDS ORDERED: BENZ-O-STHETIC MM PRN (11:10)
[2019-04-30] MEDS ORDERED: Cozaar 50 MG PO ONE (11:20)
--- NOTE | 2019-04-30 13:01 | PCM.NOTE ---
Date and Time: 04/30/19 1256 Subjective Assessment: Patient reports that she is starting to feel better. She notes they just took her off oxygen. She continues to have some cough. She reports no problems with her restless legs and states she slept all day yesterday and last night. - Review of Systems Constitutional: No Symptoms Eyes: No Symptoms Ears, Nose, & Throat: No Symptoms Respiratory: Cough Cardiac: No Symptoms Abdominal/Gastrointestinal: No Symptoms Genitourinary Symptoms: No Symptoms Musculoskeletal: Other (some swelling of lower legs bilat) Objective Exam General Appearance: no apparent distress, anxiety, obese Neurologic Exam: alert, cooperative Skin Exam: normal color, warm, dry, No rash Respiratory Exam: normal breath sounds, lungs clear, No crackles/rales, No rhonchi, No wheezing Cardiovascular Exam: regular rate/rhythm, normal heart sounds, No friction rub, No gallop, No tachycardia Gastrointestinal/Abdomen Exam: soft, normal bowel sounds, No tenderness, No distention, No mass Extremity Exam: other (trace edema bilat, no c/c) OBJECTIVE DATA Vital Signs: Vital Signs - 24 hr Temp Pulse Resp BP Pulse Ox 04/30/19 08:19 67 18 97 04/30/19 08:00 98.2 F 63 16 189/78 93 L 04/30/19 03:58 98.0 F 67 18 172/77 95 04/30/19 00:00 98.0 F 69 24 147/73 94 L 04/29/19 19:48 97.4 F 63 17 193/79 97 04/29/19 16:00 97.1 F 65 18 185/86 97 Oxygen-Last 24 hours O2 Percentage 2 Liters = 28% O2 Percentage 2 Liters = 28% Pain Assessment - Last Documented Pain Intensity 2 Pain Scale Used 0-10 Pain Scale Intake and Output: Intake & Output 04/28/19 04/29/19 04/30/19 05/01/19 06:59 06:59 06:59 06:59 Intake Total 2107 480 Output Total 550 Balance 1557 480 Weight 120 kg 120 kg Lab Results: Accuchecks Date 04/30/19 Date 04/30/19 Date 04/29/19 Time 11:30 Time 07:30 Time 16:30 Accucheck Value: 88 Accucheck Value: 103 Accucheck Value: 152 Accucheck Value: 101 Lab Results-Last 24 Hours 04/30/19 04/30/19 Range/Units 05:39 05:39 WBC 5.2 (4.0-10.5) K/mm3 RBC 3.71 L (4.1-5.4) M/mm3 Hgb 11.0 L (12.0-16.0) gm/dl Hct 34.6 L (35-47) % MCV 93.3 (78-100) fl MCH 29.6 (26-32) pg MCHC 31.8 L (32-36) g/dl RDW 13.6 (11.5-14.0) % Plt Count 189 (150-450) K/mm3 MPV 10.1 H (6-9.5) fl Sodium 138 (137-145) mmol/L Potassium 4.5 (3.5-5.1) mmol/L Chloride 108 H (98-107) mmol/L Carbon Dioxide 28 (22-30) mmol/L Anion Gap 6.3 (5-15) MEQ/L BUN 19 H (7-17) mg/dL Creatinine 0.74 (0.52-1.04) mg/dL Estimated GFR > 60.0 ML/MIN Glucose 100 (74-106) mg/dL Calcium 8.4 (8.4-10.2) mg/dL Radiology Exams: Radiology Procedures Category Date Time Status CHEST 1 VIEW (PORTABLE) Stat Exams 04/29/19 00:51 Completed CHEST WITH CONTRAST [CT] Stat Exams 04/29/19 02:25 Completed Multi-Disciplinary Progress Notes: Multi-Disciplinary Progress Notes 04/30/19 08:56 Respiratory Note by Ros Pal [id number] ROOM IAR SPO2 96%. WILL LEAVE O2 OFF AT THIS TIME Initialized on 04/30/19 08:56 - END OF NOTE Assessment/Plan (1) CAP (community acquired pneumonia) Current Visit: Yes Status: Acute Qualifiers: Laterality: right Lung location: unspecified part of lung Qualified Code( s): J18.9 - Pneumonia, unspecified organism Assessment & Plan: Continue IV antibiotics; wean oxygen as tolerated. Slowly improving. Code(s): J18.9 - PNEUMONIA, UNSPECIFIED ORGANISM (2) Essential hypertension Current Visit: Yes Status: Acute Assessment & Plan: Losartan increased to 100 mg due to high blood pressure. Code(s): I10 - ESSENTIAL (PRIMARY) HYPERTENSION (3) Diabetes type 2, controlled Current Visit: Yes Status: Acute Qualifiers: Diabetes mellitus group home insulin use: without group home use Diabetes mellitus complication status: without complication Qualified Code(s): E11.9 - Type 2 diabetes mellitus without complications Assessment & Plan: Blood glucoses well controlled on sliding scale. Not on lantus. I do not think the stated dose on her home medication list is currently correct. Code(s): E11.9 - TYPE 2 DIABETES MELLITUS WITHOUT COMPLICATIONS
[2019-04-30] MEDS: REQUIP 2MG TAB PO SCH (22:08)
[2019-04-30] MEDS: Toprol Xl 50 MG PO SCH (22:08)
[2019-05-01] MEDS: Sodium Chloride 0.9% 10 ML FLUSH Syringe IV SCH (06:50)
[2019-05-01 08:21] VITALS: PULSE 66; O2SAT 96
[2019-05-01] MEDS: NEURONTIN 300 MG PO SCH (08:53)
[2019-05-01] MEDS: Protonix 40MG Tablet PO SCH (08:54)
[2019-05-01] MEDS: Klor Con 10 MEQ PO SCH (08:54)
[2019-05-01] MEDS: Pepcid 20 MG PO SCH (08:54)
[2019-05-01] MEDS: SYNTHROID 112 MCG PO SCH (08:55)
[2019-05-01] MEDS: ENOXAPARIN SODIUM SQ SCH (09:04)
[2019-05-01 09:05] VITALS: BP 162/78
[2019-05-01] MEDS ORDERED: Cozaar 50 MG PO SCH (10:00)
--- NOTE | 2019-05-01 10:15 | PCM.DCORD ---
- Discharge Discharge Date: 05/01/19 Disposition: Home, Self-Care Condition: Good Prescriptions: New Benzocaine Oral Gel [[id number]] 1 gm MM Q1HPRN PRN gel..gram. PRN Reason: Pain levoFLOXacin [Levofloxacin] 750 mg PO DAILY #3 tablet Levothyroxine Sodium 112 Mcg [Synthroid 112 Mcg] 112 mcg PO QAM #30 tablet Continue Gabapentin 300 mg PO TID #0 Trazodone HCl 50 mg [Desyrel 50 mg] 50 mg PO HSPRN PRN PRN Reason: Insomnia Potassium Chloride 10 Meq Tab* [Klor Con 10 MEQ] 10 meq PO DAILY Omeprazole [Prilosec] 40 mg PO DAILY Metoprolol Succinate 50 mg [Toprol Xl 50 MG] 50 mg PO HS #30 tablet.sa Albuterol 2.5 mg/3 ml Neb [Proventil 2.5 mg/3 ml Neb] 2.5 mg IH Q4HRT PRN #150 ml PRN Reason: Shortness Of Breath/Wheezing Ropinirole 2Mg [Requip 2Mg Tab] 2 mg PO HS Changed Losartan Potassium 100 mg PO DAILY #30 tablet Discontinued Levothyroxine Sodium 100 Mcg [Synthroid 100 Mcg] 100 mcg PO DAILY Insulin Glargine [Lantus Insulin] 50 unit SQ AMINSULIN Follow up with: MAIRA ANTONIA HURT [Primary Care Provider] - 1 Week
--- NOTE | 2019-05-02 11:59 | HP ---
HISTORY OF PRESENT ILLNESS: This is a 73 year-old patient of mine who presented to the emergency department. She reports that she was having trouble with her restless legs for the past few days and had been unable to sleep very much, just kept getting worse. She reports her cough did not start until she got to the hospital. She denies fever at home. She had been doing okay with her breathing at home. 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 The patient reports that her son is battling cancer currently. The patient reports that she does feel better. Her legs are not bothering her at the moment. She reports at home she also has some chest pressure. The emergency room evaluated her and decided to keep her to rule out myocardial infarction and also to treat pneumonia. REVIEW OF SYSTEMS: No constipation. No diarrhea. No abdominal pain. She reports she had some lower extremity edema. No rashes. Otherwise review of systems is negative. MEDICATIONS: Please see the home medication reconciliation list. I asked the nursing staff to clarify the dose of Lantus on this as our outpatient chart says she is only taking 10 units a day. ALLERGIES: ETODOLAC, RISEDRONATE SODIUM, ADHESIVE TAPE, LATEX. PAST MEDICAL HISTORY: Diabetes mellitus type 2. Chronic obstructive pulmonary disease. Breast cancer 1983. Depression. Hyperlipidemia. Hypertension. Narcolepsy. Gout. Diverticulosis. Restless leg syndrome. Mild sleep apnea on sleep study in 2010 at which time they recommended CPAP at 6 cm. Seasonal allergies. Her last heart cath was [address] Rdz and she did not require any stents. PAST SURGICAL HISTORY: Appendectomy. Cholecystectomy. Hysterectomy. Left hand surgery. Right and left shoulder surgery. Left knee replacement. Foot surgery. Upper endoscopy with dilatation in 2014. Right hand surgery. Right knee replacement. Lumpectomy for breast cancer. SOCIAL HISTORY: She lives alone. She does not smoke. No alcohol use. FAMILY HISTORY: Her mother had colon cancer. Sister had breast cancer. PHYSICAL EXAMINATION: VITAL SIGNS: Temperature current 98.4F, temperature max 98.4F, heart rate 61, respiratory rate 20, blood pressure 151/66. Oxygen saturation 96% on 2 liters nasal cannula. GENERAL: The patient is a pleasant talkative lady sitting up in bed in no acute distress. CVS: She has a regular rate and rhythm. No murmurs, gallops or rubs are appreciated. She has +2 radial pulses bilaterally. CHEST: Clear to auscultation bilaterally. No crackles or wheezes are appreciated. She does have a deep wet sounding cough. ABDOMEN: Soft, nontender, nondistended with normal bowel sounds. EXTREMITIES: No clubbing, cyanosis or edema is appreciated. SKIN: Warm, dry and intact. LABORATORY DATA AND TESTS: On admission white blood cell count was 6.3, hemoglobin 12.4, PLT count normal. CMP with glucose 108, TSH 12. Serial troponins have been negative. BMP was normal. Albumin was normal. International normalized ratio was normal. She had a chest CT that was read by our radiologist as new bilateral patchy airspace disease without consolidation or effusion. Please see his report for the full dictation and the chest x-ray he questioned a right infrahilar infiltrate versus atelectasis and cardiomegaly. ASSESSMENT AND PLAN: 1) CHEST PAIN: She was placed on the chest pain pathway and was ruled out for acute myocardial infarction at the time of dictation. I will plan to discontinue her telemetry as she states it was bothering her anyway and she is no longer having chest pain and has now ruled out. I will have her follow up with her cloth booker as outpatient. 2) RIGHT LOWER LOBE PNEUMONIA: She has been started on levofloxacin 750 mg IV every 24 hours, will plan to continue with this. 3) DIABETES MELLITUS TYPE 2: We are clarifying the dose of Lantus. She is on a sliding scale right now. 4) HYPERTENSION: Will continue with her current antihypertensive and adjust as needed. 5) HYPOTHYROIDISM: I increased her levothyroxine as she reported she had not missed any doses. 6) CHRONIC OBSTRUCTIVE PULMONARY DISEASE: Will continue on her home medications. She is followed by Dr. Harsh Singleton as an outpatient. If she develops wheezing or worsening respiratory distress I would add steroids but at this time treating as pneumonia. 7) RESTLESS LEG SYNDROME: Will continue with her home medications. She reports she has an appointment at [facility] regarding her restless leg syndrome. She does not have anemia so this is not contributing to that. 8) CODE STATUS: The patient reports that she wants to be a "No Code" and does not want to have chest compressions or be placed on a ventilator if her heart should stop suddenly or she should stop breathing and this was signed in her chart.
== END 2019-05-01 11:20 | disposition home or self-care (01) | DRG 313 ==
LOC: ED 22:55 → MED SURG 04-29 05:30
PROVIDERS: ADMIT Internal Medicine; ATTEND Internal Medicine
DX: R07.9 Chest pain, unspecified (principal); J18.9 Pneumonia, unspecified organism; E11.9 Type 2 diabetes mellitus without complications; I10 Essential (primary) hypertension; E03.9 Hypothyroidism, unspecified; J44.9 Chronic obstructive pulmonary disease, unspecified; G25.81 Restless legs syndrome; E78.5 Hyperlipidemia, unspecified; G47.30 Sleep apnea, unspecified; Z79.4 Long term (current) use of insulin; Z79.899 Other long term (current) drug therapy
CPT/HCPCS: 36000; 36415; 71045; 71260; 80048; 80053; 82962; 83880; 84443; 84484; 85025; 85027; 85610; 85730; 93005; 93041; 94150; 94640; 94760; 96365; 96374; 96375; 99284; 99285; J1650; J1956; J2270; J7609; A9270-GY

== ENCOUNTER 2019-08-15 08:33 | Day surgery (SDC) | payer MEDICARE ==
--- NOTE | 2019-08-15 08:06 | HP ---
DATE OF SURGERY: 08/15/2019 HISTORY OF PRESENT ILLNESS: The patient is a 73 year-old last colonoscopy five years ago, history of polyps in the past. No bloody stools except when she strains. No bloody stools on a regular basis. Sometimes has a hard time evacuating stool with constipation, some loose stools afterwards. Given her family history of colon cancer, personal history of polyps, she is need of follow up screening colonoscopy. PAST MEDICAL HISTORY: Diabetes, hypothyroidism, hyperlipidemia. History of gout. History of anxiety and depression, hypertension, some chronic obstructive pulmonary disease, history of some reflux in the past. History of spinal stenosis in the past. PAST SURGICAL HISTORY: Hysterectomy. Appendectomy. Cholecystectomy. Left hand surgery. Right and left shoulder surgery. Foot surgery. She had heart cath in the past. Left knee and right knee replacement. She had lumpectomy for cancer back in 1982. Endoscopy in the past. MEDICATIONS: Albuterol, omeprazole, multivitamin, meclizine, losartan, calcium, atorvastatin, aspirin, amlodipine, allopurinol, Alendronate, Advair, albuterol, levothyroxine, gabapentin, metoprolol, ropinirole, trazodone. ALLERGIES: SHE HAD PROBLEM WITH LOCAL ANESTHETIC IN THE PAST. LATEX. ADHESIVE TAPE. FAMILY HISTORY: Mother of colon cancer. Sister had breast cancer. SOCIAL HISTORY: No smoking. No alcohol abuse. REVIEW OF SYSTEMS: Fourteen systems reviewed pertinent for as noted above. She has history of breast cancer. No current chest pain or palpitations. Other systems negative or noncontributory as above and per preadmission questionnaire. PHYSICAL EXAMINATION: GENERAL: No acute distress. HEENT: Sclerae nonicteric. NECK: No JVD. CHEST: Equal excursion, nonlabored breathing. CVS: Regular rate and rhythm. ABDOMEN: Soft. No peritoneal signs. EXTREMITIES: No significant edema. NEURO: Alert, oriented, moving extremities symmetrically. No gross motor deficits noted. RECTAL: Deferred timed to endoscopy exam. IMPRESSION: Family history of colon cancer, personal history of polyps. She is in need of follow up screening colonoscopy. I feel she is a candidate. Shown the risk sheet, explained the procedure in detail including but not limited to bleeding or infection, risk of bowel injury or perforation possibly requiring open procedure, risk of missed or nondiagnosis or incomplete exam possibly requiring barium enema, other studies or procedures, general risk of anesthesia or sedation, risk of bowel prep but not limited to. She understands and agrees to the planned procedure and will proceed with outpatient colonoscopy.
[2019-08-15] MEDS ORDERED: Lactated Ringers 1,000 ML IV SCH (10:00)
[2019-08-15] MEDS ORDERED: DIPRIVAN 200 MG/20 ML IV ONE ×2 (11:40→11:59)
[2019-08-15] MEDS ORDERED: Ketamine HCl 50 MG/ML ONE (11:40)
[2019-08-15] MEDS ORDERED: APRESOLINE 20 MG/ML INJ ONE (12:27)
[2019-08-15 13:11] VITALS: O2SAT 100
[2019-08-15 13:44] VITALS: PULSE 62
[2019-08-15] MEDS ORDERED: APRESOLINE 20 MG/ML INJ IV ONE (13:47)
[2019-08-15] MEDS ORDERED: NORVASC 5 MG PO ONE (13:49)
[2019-08-15] MEDS ORDERED: Toprol Xl 50 MG PO SCH (14:00)
[2019-08-15] MEDS ORDERED: APRESOLINE 20 MG/ML INJ IV SCH (14:00)
[2019-08-15] MEDS ORDERED: NORVASC 5 MG PO SCH (14:00)
[2019-08-15] MEDS ORDERED: Cozaar 50 MG PO SCH (14:00)
--- NOTE | 2019-08-15 15:18 | OP ---
SURGERY DATE/TIME: 08/15/2019 1144 PREOPERATIVE DIAGNOSIS: History of polyps. Family history of colon cancer, need for follow up screening colonoscopy. POSTOPERATIVE DIAGNOSES: 1) Very tortuous colon. 2) Polyps proximal sigmoid colon and rectum. 3) Fair bowel prep left colon, adequate bowel prep right colon. PROCEDURES: 1) Colonoscopy to cecum. 2) Hot snare polypectomy sigmoid colon polyp x2. 3) Proximal sigmoid colon polyp x2. 4) Hot snare polypectomy proximal rectal polyp x1. SURGEON: Dr. Alfredo Keys. ANESTHESIA: MAC. ESTIMATED BLOOD LOSS: Minimal. INDICATIONS: As noted above. Risks and benefits explained in detail but not limited to and consent obtained. DESCRIPTION OF PROCEDURE AND FINDINGS: The patient is taken to the operating room. MAC anesthesia introduced. After official time out and no disagreement with planned procedure, digital rectal exam did not reveal any rectal masses. She did have some small internal and external hemorrhoids. Video colonoscope inserted and passed up through the tortuous sigmoid, descending, transverse and ascending colon. She did have some diverticulosis. Prep overall was fair. In the left colon she had some thicker, semisolid stool that took quite a bit of work. It was suction irrigated as well as possible making it only an adequate prep in the right colon. With external pressure and positioning on her back the scope was able to be passed to the cecum. Appendiceal orifice and valve visualized. The scope slowly and carefully withdrawn over the next 10 or 11 minutes. She had some mild diverticulosis. Scope slowly and carefully withdrawn. There were no signs of any large polyps, masses or obstructing lesions. Back to the sigmoid colon where there is a 4 mm polyp removed with hot snare polypectomy with brief bursts of cautery. In the proximal sigmoid colon further down in the sigmoid about a 6 or 7 mm polyp that was removed with hot snare polypectomy and brief bursts of cautery. Both of these specimens were retrieved per the staff. The scope is then carefully withdrawn back to the rectum, proximal rectum. Small 3 mm polyp removed with hot snare polypectomy with brief bursts of cautery. Good hemostasis noted. There were no signs of any active bleeding. The scope is withdrawn. She had some small internal and external hemorrhoids. The patient tolerated the procedure well. There were no immediate complications. Findings discussed with family out in the waiting area. I will see her back in the office next week.
[2019-08-15 16:08] VITALS: BP 157/67
[2019-08-16] MEDS ORDERED: Cozaar 50 MG PO SCH (10:00)
[2019-08-16] MEDS ORDERED: Toprol Xl 50 MG PO SCH (10:00)
== END 2019-08-15 15:45 | disposition home or self-care (01) ==
LOC: SDC 08:33
PROVIDERS: ATTEND Surgery
DX: Z09 Encounter for follow-up examination after completed treatment for conditions other than malignant neoplasm (principal); Z12.11 Encounter for screening for malignant neoplasm of colon; Z86.010 Personal history of colon polyps; D12.7 Benign neoplasm of rectosigmoid junction; D12.5 Benign neoplasm of sigmoid colon; D12.8 Benign neoplasm of rectum; K57.30 Diverticulosis of large intestine without perforation or abscess without bleeding; Z80.0 Family history of malignant neoplasm of digestive organs; K64.4 Residual hemorrhoidal skin tags; K64.8 Other hemorrhoids; E11.9 Type 2 diabetes mellitus without complications; E03.9 Hypothyroidism, unspecified; E78.5 Hyperlipidemia, unspecified; I10 Essential (primary) hypertension; J44.9 Chronic obstructive pulmonary disease, unspecified; Z79.899 Other long term (current) drug therapy
CPT/HCPCS: 88305; 99100; J0360; J2704; A9270-GY

== ENCOUNTER 2019-11-23 08:45 | Inpatient (IN) | payer MEDICARE ==
[2019-11-23] MEDS ORDERED: PROVENTIL 2.5 MG/3 ML NEB IH PRN (11:03)
[2019-11-23 11:32] LABS: Hematocrit 37.1 % (35-47); Hemoglobin 12.4 gm/dl (12.0-16.0); Mean Corpuscular Hemoglobin 31.1 pg (26-32); Mean Corpuscular Hgb Concent. 33.4 g/dl (32-36); Mean Platelet Volume 9.4 fl (7.5-11.0); Platelet Count 257 K/mm3 (150-450); Red Blood Count 3.99 M/mm3 (4.1-5.4); Red Cell Distribution Width 13.1 % (11.5-14.0); White Blood Count 7.4 K/mm3 (4.0-10.5)
[2019-11-23 11:36] LABS: ANION GAP 14.1 MEQ/L (5-15); Calcium 9.2 mg/dL (8.4-10.2); Creatinine 1 1.01 mg/dL (0.52-1.04); Potassium 3.9 mmol/L (3.5-5.1)
--- NOTE | 2019-11-23 11:49 | PCM.HP ---
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 had severe cough, sob, fever for the past few days. - Review of Systems Constitutional: Fever, Chills, Fatigue Eyes: No Symptoms Ears, Nose, & Throat: No Symptoms Respiratory: Cough, Short Of Breath Cardiac: No Chest Pain, No Edema, No Syncope Abdominal/Gastrointestinal: No Abdominal Pain, No Nausea, No Vomiting, No Diarrhea Genitourinary Symptoms: No Dysuria Musculoskeletal: No Back Pain, No Neck Pain Skin: No Rash Neurological: No Dizziness, No Focal Weakness, No Sensory Changes Psychological: No Symptoms Endocrine: No Symptoms Hematologic/Lymphatic: No Symptoms Medications & Allergies Home Medications: Home Medication List Gabapentin 300 mg PO TID #0 11/14/12 [History Confirmed 08/15/19] Trazodone HCl 50 mg [Desyrel 50 mg] 50 mg PO HSPRN PRN 06/28/15 [History Confirmed 08/15/19] Potassium Chloride 10 Meq Tab* [Klor Con 10 MEQ] 10 meq PO DAILY 07/04/16 [ History Confirmed 08/15/19] Albuterol 2.5 mg/3 ml Neb [Proventil 2.5 mg/3 ml Neb] 2.5 mg IH Q4HRT PRN #150 ml 07/08/16 [Rx Confirmed 08/15/19] Metoprolol Succinate 50 mg [Toprol Xl 50 MG] 50 mg PO HS #30 tablet.sa [Rx Confirmed 08/15/19] Ropinirole 2Mg [Requip 2Mg Tab] 2 mg PO HS 04/28/19 [History Confirmed ] Levothyroxine Sodium 112 Mcg [Synthroid 112 Mcg] 112 mcg PO QAM #30 tablet 05/01/19 [Rx Confirmed 08/15/19] Albuterol 8 gm Mdi Hfa [Ventolin Hfa MDI] 2 puff IH Q4HPRN PRN 08/09/19 [ History Confirmed 08/15/19] Alendronate Sodium 35 mg PO WEEKLY 08/09/19 [History Confirmed 08/15/19] Allopurinol 100 mg [Zyloprim 100 mg] 1 tab PO DAILY 08/09/19 [History Confirmed 08/15/19] Amlodipine Besylate 5 mg [Norvasc 5 mg] 1 tab PO DAILY 08/09/19 [History Confirmed 08/15/19] Atorvastatin Calcium [Lipitor] 1 tab PO DAILY 08/09/19 [History Confirmed ] Calcium Carbonate/Vitamin D3 [Calcium 600 + Vit D 400 Tablet] 1 tab PO DAILY [History Confirmed 08/15/19] Fluticasone/Salmeterol 115/21* [Advair Hfa 115/21 Mcg Inhaler] 2 puffs IH BID 08/09/19 [History Confirmed 08/15/19] Losartan Potassium 50 mg [Cozaar 50 MG] 1 tab PO DAILY 08/09/19 [History Confirmed 08/15/19] Meclizine HCl 25 mg [Antivert 25 mg] 1 tab PO TIDPRN PRN 08/09/19 [ History Confirmed 08/15/19] Multivitamin [Multivitamins] 1 tab PO DAILY 08/09/19 [History Confirmed 08/15/19 ] Omeprazole 1 tab PO BID PRN 08/09/19 [History Confirmed 08/15/19] Aspirin EC 81 mg [Ecotrin 81 mg] 1 tab PO DAILY #0 08/15/19 [Rx Confirmed 08/09/19] Allergies/Adverse Reactions: Allergies Allergy/AdvReac Type Severity Reaction Status Date / Time etodolac Allergy Severe Shortness Verified 04/28/19 23:22 of Breath risedronate sodium Allergy Severe Hives Verified 04/28/19 23:22 [From Actonel] adhesive tape Allergy Intermediate Rash Verified 08/15/19 09:34 latex AdvReac Intermediate Rash Verified 04/28/19 23:22 - Past Medical History Past Medical History: Yes Neurological History: Other ENT History: Cataracts, Macular Degeneration Cardiac History: Arrhythmia, High Cholesterol, Hypertension Respiratory History: Asthma, COPD, Pneumonia, Sleep Apnea Endocrine Medical History: Diabetes Type II, Hypothyroidism Musculoskelatal History: Osteoporosis, Rheumatoid Arthritis GI Medical History: No Pertinent History History: Other Pyscho-Social History: Depression Reproductive Disorders: Breast Cancer Comment: bladder leakage, restless legs, irregular heart beat per pt. bells palsy. gout. Left sided Breast CA - Past Surgical History Past Surgical History: Yes Neuro Surgical History: Other Cardiac History: Cardiac Catheterization Respiratory Surgery: No Pertinent History GI Surgical History: Appendectomy, Cholecystectomy Genitourinary Surgical Hx: No Pertinent History Musculskeletal Surgical Hx: Orthopedic Surgery, Other Female Surgical History: Hysterectomy, Lumpectomy Other Surgical History: nerve from neck to face repaired from bells palsy, bilateral knee replacement, bilator rotator cuff, feet and toes surgeries, R hand carpal tunnel repair. r hand 4 fingers surgery. partial hysterectomy; left hand carpal tunnel surgery. - Social History Smoking Status: Never smoker Exposure to second hand smoke: No Alcohol: None Drug Use: none Significant Family History: cancer (3 sisters with breast cancer, mother with breast cancer and was diseased from colon cancer. Uncle with breast cancer and mulitple aunts with breast cancer.) - Physical Exam Vital Signs: Vital Signs - 24 hr Temp Pulse Resp BP Pulse Ox 11/23/19 11:30 98.3 F 92 H 18 157/77 97 General Appearance: mild distress Neurologic Exam: alert, cooperative Eye Exam: PERRL/EOMI, eyes nml inspection Ears, Nose, Throat Exam: normal ENT inspection Neck Exam: normal inspection, non-tender, supple Respiratory Exam: diminished breath sounds, prolonged expirations, crackles/ rales, rhonchi Cardiovascular Exam: regular rate/rhythm, normal heart sounds Gastrointestinal/Abdomen Exam: soft, normal bowel sounds, No tenderness, No distention, No mass, No guarding Pelvic Exam: not done Rectal Exam: deferred Back Exam: normal inspection Extremity Exam: normal inspection, No calf tenderness Skin Exam: normal color, warm, dry Results - Labs Lab/Micro Results: Lab Results-Last 24 Hours 11/23/19 11/23/19 Range/Units 11:20 11:20 WBC 7.4 (4.0-10.5) K/mm3 RBC 3.99 L (4.1-5.4) M/mm3 Hgb 12.4 (12.0-16.0) gm/dl Hct 37.1 (35-47) % MCV 93.0 (78-100) fl MCH 31.1 (26-32) pg MCHC 33.4 (32-36) g/dl RDW 13.1 (11.5-14.0) % Plt Count 257 (150-450) K/mm3 MPV 9.4 (7.5-11.0) fl Sodium 140 (137-145) mmol/L Potassium 3.9 (3.5-5.1) mmol/L Chloride 105 (98-107) mmol/L Carbon Dioxide 24 (22-30) mmol/L Anion Gap 14.1 (5-15) MEQ/L BUN 18 H (7-17) mg/dL Creatinine 1.01 (0.52-1.04) mg/dL Estimated GFR 57.3 ML/MIN Glucose 114 H (74-106) mg/dL Calcium 9.2 (8.4-10.2) mg/dL - Radiology Impressions Radiology Exams & Impressions: Radiology Procedures Category Date Time Status CHEST 2 VIEWS (PA AND LAT) Routine Exams 11/23/19 11:30 Taken CHEST 2 VIEWS (PA AND LAT) Routine Exams 11/24/19 08:00 Ordered - Other Procedures and Tests Respiratory Therapy 11/23/19 11:08 Oxygen Nasal Cannula 2 lpm neb [Respiratory Nebulizer] UD Assessment/Plan (1) COPD exacerbation Current Visit: No Status: Acute Assessment & Plan: Start iv steroids and iv antibiotics Code(s): J44.1 - CHRONIC OBSTRUCTIVE PULMONARY DISEASE W (ACUTE) EXACERBATION (2) Pneumonia Current Visit: No Status: Acute Assessment & Plan: Start IV steroids and iv antibiotics Code(s): J18.9 - PNEUMONIA, UNSPECIFIED ORGANISM
--- NOTE | 2019-11-23 11:58 | XRAY ---
Indication: Pneumonia. Exacerbation of COPD. Comparison: April 29, 2019. PA/lateral chest hyperinflated again with minimal left upper lobe fibrosis/scarring and right base calcified granuloma. No focal infiltrate, consolidation, or large effusion. Heart and mediastinal structures within normal limits. Bony thorax intact again with mild osteopenia and degenerative changes. Impression: Nonacute hyperinflated chest with stable chronic features.
[2019-11-23] MEDS: Sodium Chloride 0.9% 1000 ML 1,000 ML IV SCH ×2 (12:13→21:46)
[2019-11-23] MEDS: DUONEB 0.5-3 MG/3 ml Neb IH SCH ×3 (12:15→19:33)
[2019-11-23] MEDS: ROCEPHIN 1 Gm-D5w 50 ml Bag** 1 G/50 ML IVPB IV SCH (12:15)
[2019-11-23] MEDS: solu-MEDROL 125 MG IV SCH ×2 (12:16→17:02)
[2019-11-23] MEDS: Zithromax 500 MG/ 250 ML NaCl Premix 500 MG/250 ML IVPB IV SCH (12:17)
[2019-11-23] MEDS ORDERED: DUONEB 0.5-3 MG/3 ml Neb IH PRN (12:34)
[2019-11-23] MEDS: Tussionex Pennkinetic Susp PO PRN (12:45)
[2019-11-23] MEDS ORDERED: Ventolin Hfa MDI IH PRN (16:29)
[2019-11-23] MEDS ORDERED: ANTIVERT 25 MG PO PRN (16:29)
[2019-11-23] MEDS ORDERED: NON-FORMULARY ITEM (Alendronate Sodium [Alendronate Sodium] 35 MG) PO SCH (16:30)
[2019-11-23] MEDS ORDERED: NON-FORMULARY ITEM (Omeprazole [Omeprazole] 1 TAB) PO SCH (16:30)
[2019-11-23] MEDS ORDERED: Protonix 40MG Tablet PO PRN (16:36)
[2019-11-23] MEDS ORDERED: VENTOLIN COMMON CANISTER IH PRN (16:40)
[2019-11-23] MEDS: Calcium 500MG W/Vit D Tablet PO SCH (16:43)
[2019-11-23] MEDS: ZOCOR 20MG PO SCH (16:44)
[2019-11-23] MEDS: THERAGRAN MULTIVITAMIN PO SCH (16:44)
[2019-11-23] MEDS: NEURONTIN 300 MG PO SCH ×2 (17:01→21:30)
[2019-11-23] MEDS: Advair Hfa 115/21 Common canister IH SCH (19:35)
[2019-11-23] MEDS ORDERED: NovoLIN R ONE (21:29)
[2019-11-23] MEDS: Toprol Xl 50 MG PO SCH (21:30)
[2019-11-23] MEDS: REQUIP 2MG TAB PO SCH (21:30)
[2019-11-23] MEDS: HUMULIN R SQ PRN (21:30)
[2019-11-23] MEDS ORDERED: SALMETEROL IH SCH (22:00)
[2019-11-23] MEDS ORDERED: FLUTICASONE IH SCH (22:00)
[2019-11-24] MEDS: solu-MEDROL 125 MG IV SCH ×2 (00:16→06:01)
[2019-11-24] MEDS: Tussionex Pennkinetic Susp PO PRN ×3 (00:16→21:41)
[2019-11-24 04:36] LABS: Hematocrit 35.7 % (35-47); Hemoglobin 11.6 gm/dl (12.0-16.0); Mean Cell Volume 93.5 fl (78-100); Mean Corpuscular Hemoglobin 30.4 pg (26-32); Mean Corpuscular Hgb Concent. 32.5 g/dl (32-36); Mean Platelet Volume 9.3 fl (7.5-11.0); Platelet Count 257 K/mm3 (150-450); Red Blood Count 3.82 M/mm3 (4.1-5.4); Red Cell Distribution Width 13.3 % (11.5-14.0); White Blood Count 9.3 K/mm3 (4.0-10.5)
[2019-11-24 04:50] LABS: ANION GAP 14.7 MEQ/L (5-15); BLOOD UREA NITROGEN 18 mg/dL (7-17); CHLORIDE 106 mmol/L (98-107); Calcium 8.9 mg/dL (8.4-10.2); Carbon Dioxide 22 mmol/L (22-30); Creatinine 1 0.78 mg/dL (0.52-1.04); Glucose 202 mg/dL (74-106); Potassium 4.3 mmol/L (3.5-5.1); SODIUM 139 mmol/L (137-145)
[2019-11-24] MEDS: Advair Hfa 115/21 Common canister IH SCH ×2 (06:39→20:12)
[2019-11-24] MEDS: DUONEB 0.5-3 MG/3 ml Neb IH SCH ×4 (06:39→20:11)
[2019-11-24] MEDS ORDERED: NovoLIN R ONE (07:44)
[2019-11-24] MEDS: HUMULIN R SQ PRN ×4 (07:44→21:35)
--- NOTE | 2019-11-24 08:36 | PCM.NOTE ---
Date and Time: 11/24/19830 Subjective Assessment: Pt. notes for some time she has been having some difficulty with swallowing, noting her son has stage 4 thyroid cancer. Pt. notes occasional reflux and sometimes has emesis after food gets stuck, (c/w sliding hiatal hernia). Pt. notes some symptoms of orthopnea last night, denies any chest pain and notes breathing is much better today than yesterday. - Review of Systems Constitutional: Fever Eyes: No Symptoms Ears, Nose, & Throat: No Symptoms Respiratory: Cough, Orthopnea, Wheezing Cardiac: No Chest Pain, No Edema, No Syncope Abdominal/Gastrointestinal: No Abdominal Pain, No Nausea, No Vomiting, No Diarrhea Genitourinary Symptoms: No Dysuria Musculoskeletal: No Back Pain, No Neck Pain Skin: No Rash Neurological: No Dizziness, No Focal Weakness, No Sensory Changes Objective Exam General Appearance: no apparent distress Neurologic Exam: alert, cooperative Skin Exam: normal color, warm, dry, No rash, No petechiae Eye Exam: EOMI Ears, Nose, Throat Exam: normal ENT inspection Neck Exam: normal inspection, non-tender, supple, No meningismus Lymphatic Exam: No adenopathy Respiratory Exam: diminished breath sounds, prolonged expirations, crackles/ rales, rhonchi Cardiovascular Exam: regular rate/rhythm, normal heart sounds Gastrointestinal/Abdomen Exam: soft Extremity Exam: normal inspection OBJECTIVE DATA Vital Signs: Vital Signs - 24 hr Temp Pulse Resp BP Pulse Ox 11/24/19 07:10 162/88 11/24/19 06:48 98.5 F 86 20 217/85 96 11/24/19 06:42 80 16 93 L 11/24/19 04:00 97.7 F 94 H 20 184/94 97 11/23/19 23:55 98.5 F 93 H 20 142/69 97 11/23/19 20:11 98.7 F 112 H 22 147/67 96 11/23/19 19:41 101 H 20 94 L 11/23/19 16:20 79 20 97 11/23/19 16:00 99.1 F 105 H 18 149/75 94 L 11/23/19 12:26 75 24 98 11/23/19 11:30 98.3 F 92 H 18 157/77 97 Pain Assessment - Last Documented Pain Intensity 0 Pain Scale Used 0-10 Pain Scale Intake and Output: Intake & Output 11/21/19 11/22/19 11/23/19 11/24/19 11:59 11:59 11:59 11:59 Intake Total 2577 Output Total 1900 Balance 677 Weight 119.3 kg Lab Results: Accuchecks Date 11/23/19 Date 11/23/19 Time 17:05 Time 12:38 Accucheck Value: 410 Accucheck Value: 193 Accucheck Value: 106 Lab Results-Last 24 Hours 11/23/19 11/23/19 11/24/19 Range/Units 11:20 11:20 04:20 WBC 7.4 9.3 (4.0-10.5) K/mm3 RBC 3.99 L 3.82 L (4.1-5.4) M/mm3 Hgb 12.4 11.6 L (12.0-16.0) gm/dl Hct 37.1 35.7 (35-47) % MCV 93.0 93.5 (78-100) fl MCH 31.1 30.4 (26-32) pg MCHC 33.4 32.5 (32-36) g/dl RDW 13.1 13.3 (11.5-14.0) % Plt Count 257 257 (150-450) K/mm3 MPV 9.4 9.3 (7.5-11.0) fl Sodium 140 (137-145) mmol/L Potassium 3.9 (3.5-5.1) mmol/L Chloride 105 (98-107) mmol/L Carbon Dioxide 24 (22-30) mmol/L Anion Gap 14.1 (5-15) MEQ/L BUN 18 H (7-17) mg/dL Creatinine 1.01 (0.52-1.04) mg/dL Estimated GFR 57.3 ML/MIN Glucose 114 H (74-106) mg/dL Calcium 9.2 (8.4-10.2) mg/dL 11/24/19 Range/Units 04:20 WBC (4.0-10.5) K/mm3 RBC (4.1-5.4) M/mm3 Hgb (12.0-16.0) gm/dl Hct (35-47) % MCV (78-100) fl MCH (26-32) pg MCHC (32-36) g/dl RDW (11.5-14.0) % Plt Count (150-450) K/mm3 MPV (7.5-11.0) fl Sodium 139 (137-145) mmol/L Potassium 4.3 (3.5-5.1) mmol/L Chloride 106 (98-107) mmol/L Carbon Dioxide 22 (22-30) mmol/L Anion Gap 14.7 (5-15) MEQ/L BUN 18 H (7-17) mg/dL Creatinine 0.78 (0.52-1.04) mg/dL Estimated GFR > 60.0 ML/MIN Glucose 202 H (74-106) mg/dL Calcium 8.9 (8.4-10.2) mg/dL Radiology Exams: Radiology Procedures Category Date Time Status CHEST 2 VIEWS (PA AND LAT) Routine Exams 11/23/19 11:30 Completed CHEST 2 VIEWS (PA AND LAT) Routine Exams 11/24/19 06:00 Taken Assessment/Plan (1) COPD exacerbation Current Visit: No Status: Acute Assessment & Plan: continue IV antibiotics, change iv to po steroids, will check flu swab although this will not change treatment plan at this time 5 days out from symptom onset Code(s): J44.1 - CHRONIC OBSTRUCTIVE PULMONARY DISEASE W (ACUTE) EXACERBATION (2) Pneumonia Current Visit: No Status: Acute Assessment & Plan: No pneumonia on cxr noted. Code(s): J18.9 - PNEUMONIA, UNSPECIFIED ORGANISM (3) Orthopnea Current Visit: Yes Status: Acute Assessment & Plan: CXR does not show any CHF but will check pro BNP and troponin Code(s): R06.01 - ORTHOPNEA (4) GERD (gastroesophageal reflux disease) Current Visit: Yes Status: Acute Assessment & Plan: start H2 tigist bid (pepcid) Code(s): K21.9 - GASTRO-ESOPHAGEAL REFLUX DISEASE WITHOUT ESOPHAGITIS (5) Dysphagia Current Visit: Yes Status: Acute Assessment & Plan: ultrasound of thyroid, add H2 tgiist Code(s): R13.10 - DYSPHAGIA, UNSPECIFIED (6) Type 2 diabetes mellitus Current Visit: No Status: Chronic Assessment & Plan: continue accu-check 4 times per day with sliding scale coverage
[2019-11-24] MEDS: Sodium Chloride 0.9% 1000 ML 1,000 ML IV SCH ×2 (08:45→23:38)
--- NOTE | 2019-11-24 08:54 | XRAY ---
Indication: Pneumonia. COPD exacerbation. Comparison: One day earlier. PA/lateral chest remains hyperinflated with left upper lobe fibrosis/scarring and right base calcified granuloma. Heart is now borderline enlarged. No new/acute findings.
[2019-11-24 09:41] LABS: INFLUENZA A NEGATIVE (NEGATIVE); INFLUENZA B NEGATIVE (NEGATIVE); RESPIRATORY SYNCTIAL VIRUS NEGATIVE (Negative)
[2019-11-24] MEDS: Klor Con 10 MEQ PO SCH (09:42)
[2019-11-24] MEDS: NEURONTIN 300 MG PO SCH ×3 (09:42→21:34)
[2019-11-24] MEDS: ECOTRIN 81 MG PO SCH (09:42)
[2019-11-24] MEDS: THERAGRAN MULTIVITAMIN PO SCH (09:42)
[2019-11-24] MEDS: Zithromax 500 MG/ 250 ML NaCl Premix 500 MG/250 ML IVPB IV SCH (09:42)
[2019-11-24] MEDS: Pepcid 20 MG PO SCH ×2 (09:42→21:34)
[2019-11-24] MEDS: ROCEPHIN 1 Gm-D5w 50 ml Bag** 1 G/50 ML IVPB IV SCH (09:42)
[2019-11-24] MEDS: Calcium 500MG W/Vit D Tablet PO SCH (09:42)
[2019-11-24] MEDS: ZYLOPRIM 100 MG PO SCH (09:42)
[2019-11-24] MEDS: NORVASC 5 MG PO SCH (09:42)
[2019-11-24] MEDS: ZOCOR 20MG PO SCH (09:42)
[2019-11-24] MEDS: SYNTHROID 112 MCG PO SCH (09:43)
--- NOTE | 2019-11-24 09:48 | XRAY ---
Indication: Dysphasia. Two-dimensional thyroid sonogram performed. Comparison: None No thyromegaly. Right lobe measures 3.4 x 1.8 x 1.8 cm and the left measures 3.2 x 1.5 x 1.6 cm. Isthmus measures 5.8 mm. Left upper pole demonstrates a 6 mm benign appearing calcification. No other solid/cystic mass. Impression: Benign appearing left lobe calcification. Remaining thyroid sonogram is negative.
[2019-11-24] MEDS ORDERED: NON-FORMULARY ITEM (Multivitamin [Multivitamins] 1 TAB) PO SCH (10:00)
[2019-11-24] MEDS ORDERED: [UNRECOGNIZED DRUG - OTHER] PO SCH (10:00)
[2019-11-24] MEDS ORDERED: VITAMIN D3 PO SCH (10:00)
[2019-11-24] MEDS ORDERED: Cozaar 50 MG PO SCH (10:00)
[2019-11-24] MEDS ORDERED: CALCIUM CARBONATE PO SCH (10:00)
[2019-11-24] MEDS ORDERED: NON-FORMULARY ITEM (Atorvastatin Calcium [Lipitor] 1 TAB) PO SCH (10:00)
[2019-11-24 10:06] LABS: TROPONIN 0.102 ng/mL (0.000-0.034)
[2019-11-24] MEDS ORDERED: Lasix 40 MG/4 ML IV ONE (10:18)
[2019-11-24] MEDS ORDERED: Tussionex Pennkinetic Susp PO PRN (10:19)
[2019-11-24] MEDS ORDERED: TYLENOL 325 MG PO PRN (10:19)
[2019-11-24] MEDS: DELTASONE 20 MG PO SCH (11:21)
[2019-11-24] MEDS ORDERED: Cozaar 50 MG PO ONE (12:04)
[2019-11-24] MEDS: Toprol Xl 50 MG PO SCH (21:34)
[2019-11-24] MEDS: DESYREL 50 MG PO PRN (21:34)
[2019-11-24] MEDS: Cozaar 50 MG PO SCH (21:34)
[2019-11-24] MEDS: REQUIP 2MG TAB PO SCH (21:34)
[2019-11-25 05:05] LABS: Hematocrit 34.5 % (35-47); Hemoglobin 11.2 gm/dl (12.0-16.0); Mean Corpuscular Hemoglobin 30.9 pg (26-32); Mean Corpuscular Hgb Concent. 32.5 g/dl (32-36); Mean Platelet Volume 9.7 fl (7.5-11.0); Platelet Count 255 K/mm3 (150-450); Red Blood Count 3.63 M/mm3 (4.1-5.4); Red Cell Distribution Width 13.5 % (11.5-14.0); White Blood Count 15.8 K/mm3 (4.0-10.5)
[2019-11-25 05:11] LABS: ANION GAP 11.4 MEQ/L (5-15); BLOOD UREA NITROGEN 26 mg/dL (7-17); CHLORIDE 108 mmol/L (98-107); Calcium 8.6 mg/dL (8.4-10.2); Carbon Dioxide 26 mmol/L (22-30); Creatinine 1 0.84 mg/dL (0.52-1.04); Glucose 168 mg/dL (74-106); Potassium 4.3 mmol/L (3.5-5.1); SODIUM 141 mmol/L (137-145)
[2019-11-25] MEDS ORDERED: Fosamax 70 MG PO SCH (06:00)
[2019-11-25] MEDS: DUONEB 0.5-3 MG/3 ml Neb IH SCH ×4 (06:29→18:44)
[2019-11-25] MEDS: Advair Hfa 115/21 Common canister IH SCH ×2 (06:29→18:44)
--- NOTE | 2019-11-25 07:52 | CONS ---
CONSULT DATE: 11/24/2019 BRIEF HISTORY: This is a 73 year-old female who was seen because of an elevated troponin I. The patient was primarily admitted for productive cough associated with chills. She was placed on IV antibiotics. She also complained of pain in the lower sternal area which is aggravated by deep inspiration and also by coughing. Her troponin I is trending downwards. The patient has had previous cardiac catheterization done at [facility] and she was told that this was within normal range. She has never had a myocardial infarction or heart failure. The patient states that she has been caring for her son who is suffering from stage IV thyroid cancer and as a result she apparently got ill and developed a respiratory tract infection. She has had history of bronchitis in the past. CARDIAC RISK FACTORS: Positive for diabetes. History of hypertension. She does not smoke. She has hyperlipidemia. CURRENT MEDICATIONS: Albuterol inhaler, Alendronate, allopurinol, amlodipine, aspirin, atorvastatin, vitamin D, Advair, gabapentin, levothyroxine, losartan, meclizine, metoprolol, multivitamin, omeprazole, potassium, Requip, trazodone. REVIEW OF SYSTEMS: AUTOPSY PATHOLOGIST: No history of stroke. No seizures. No chronic headache. RESPIRATORY: She has history of bronchitis. GI: Negative history for peptic ulcer. No nausea or vomiting. No diarrhea or constipation. : Negative for dysuria or hematuria. PERIPHERAL VASCULAR: She has had a history of DVT post knee replacement. HEMATOLOGY: No blood dyscrasia. ENDOCRINE: She has a history of hypothyroidism on replacement therapy. PAST SURGICAL HISTORY: Hysterectomy. Cholecystectomy. Appendectomy. Bilateral knee replacement. Repair of rotator cuff. SOCIAL HISTORY: She used to work as a RN. She has no significant alcohol intake. PHYSICAL EXAMINATION: Her blood pressure is 140/70 with a heart rate of 80, respirations about 20. GENERAL: The patient is an elderly female who is alert, oriented, mildly obese who has productive cough. HEENT: Unremarkable. NECK: No significant JVD. CHEST: The breath sounds are harsh with some rhonchi. There is no wheezing. No definite crackles. CARDIAC: Heart tones are within normal. The rhythm is regular. No audible gallop. The second heart sound appears to be accentuated. ABDOMEN: Soft with normal bowel sounds. EXTREMITIES: No significant edema. Palpable distal pulses. LAB DATA AND DIAGNOSTIC TESTS: Troponin I is now 0.085. CBC shows hemoglobin 11.8, PLT 257,000. BUN 18, creatinine 0.78. Glomerular filtration rate greater than 60. Serum electrolytes are normal. IMPRESSION: In essence the patient has some: 1) Chest pains but appear to be pleuritic in nature. I suspect that the elevated troponin I is probably secondary to ischemia from recent respiratory tract infection. Because of the presence of cardiac risk factors the patient will be scheduled for a pharmacologic stress test after she recovers from her current respiratory tract infection. 2) Hypertension. Continue with current medical regimen. Her medication has been adjusted. 3) Hyperlipidemia. Continue with statin therapy. I will follow up with you.
[2019-11-25] MEDS: Cozaar 50 MG PO SCH ×2 (07:57→21:33)
[2019-11-25] MEDS: Tussionex Pennkinetic Susp PO PRN ×2 (07:58→21:33)
[2019-11-25] MEDS: NORVASC 5 MG PO SCH ×2 (07:58→08:31)
[2019-11-25] MEDS ORDERED: Lopressor 50 MG PO STA (08:13)
--- NOTE | 2019-11-25 08:38 | XRAY ---
Indication: Pneumonia. COPD exacerbation. Comparison: One day earlier. PA/lateral chest now demonstrates minimal right base infiltrate versus atelectasis. Remaining chest unchanged again hyperinflated with left apex fibrosis/scarring, right base calcified granuloma, and borderline cardiomegaly.
--- NOTE | 2019-11-25 08:43 | PCM.NOTE ---
Date and Time: 11/25/19837 Subjective Assessment: Patient reports continued deep cough. Her actuarial science teacher is Dr. Janeth Singleton. Dr. Pickard saw her yesterday. I also called him and discussed that her blood pressure is still high and I am adjusting her medication today. He plans to have her get a chemical stress test after discharge. He feels her elevated troponin is related to her respiratory illness. Patient reports swallowing food and having to chew meat 50 times before swallowing. This has been going on for some time and is not acute. Patient reports she is sometimes coughing up some sputum that is yellow in color. She reports she would want chest compressions done if her heart would stop beating but doesn't want to be kept on life support. She therefore does not want to be SCO. - Review of Systems Constitutional: Weakness Eyes: No Symptoms Ears, Nose, & Throat: No Symptoms Respiratory: Cough Cardiac: Chest Pain, Other (She reports some sternal pain that is an "inconvenience") Skin: No Symptoms Objective Exam General Appearance: no apparent distress, obese, other (frequent deep cough) Neurologic Exam: alert, cooperative, normal mood/affect Skin Exam: normal color, warm, dry, No rash Respiratory Exam: other (expiratory wheeze at left base of lung field, no wheezes on right side, no crackles, equal breath sounds.), No respiratory distress, No crackles/rales, No rhonchi Cardiovascular Exam: regular rate/rhythm, normal heart sounds, No murmur, No friction rub, No gallop Gastrointestinal/Abdomen Exam: soft, normal bowel sounds, No tenderness, No distention, No mass Extremity Exam: other (no c/c/e) OBJECTIVE DATA Vital Signs: Vital Signs - 24 hr Temp Pulse Resp BP Pulse Ox 11/25/19 07:43 97.6 F 63 18 190/86 97 11/25/19 06:31 63 18 97 11/25/19 04:00 97.9 F 60 18 198/82 98 11/25/19 00:11 98.1 F 79 20 182/84 96 11/24/19 20:13 77 20 95 11/24/19 20:11 98.2 F 85 20 140/77 95 11/24/19 16:00 98.5 F 90 21 218/94 99 11/24/19 14:40 89 20 97 11/24/19 11:22 98.4 F 87 18 210/80 95 11/24/19 11:03 85 24 96 Pain Assessment - Last Documented Pain Intensity 0 Pain Scale Used 0-10 Pain Scale Intake and Output: Intake & Output 11/23/19 11/24/19 11/25/19 11/26/19 06:59 06:59 06:59 06:59 Intake Total 2457 3427 Output Total 1900 2740 Balance 557 -1273 Weight 119.3 kg Lab Results: Accuchecks Date 11/25/19 Date 11/24/19 Date 11/24/19 Date 11/24/19 Time 21:35 Time 16:30 Time 11:30 Accucheck Value: 261 Accucheck Value: 279 Accucheck Value: 257 Lab Results-Last 24 Hours 11/24/19 11/24/19 11/24/19 Range/Units 05:00 08:45 08:45 WBC (4.0-10.5) K/mm3 RBC (4.1-5.4) M/mm3 Hgb (12.0-16.0) gm/dl Hct (35-47) % MCV (78-100) fl MCH (26-32) pg MCHC (32-36) g/dl RDW (11.5-14.0) % Plt Count (150-450) K/mm3 MPV (7.5-11.0) fl Sodium (137-145) mmol/L Potassium (3.5-5.1) mmol/L Chloride (98-107) mmol/L Carbon Dioxide (22-30) mmol/L Anion Gap (5-15) MEQ/L BUN (7-17) mg/dL Creatinine (0.52-1.04) mg/dL Estimated GFR ML/MIN Glucose (74-106) mg/dL Hemoglobin A1c 5.92 (4.5-6.0) % Calcium (8.4-10.2) mg/dL Troponin I 0.102 H* (0.000-0.034) ng/mL NT-Pro-B Natriuret Pep 1600 H (0-900) pg/mL Influenza Type A Ag NEGATIVE (NEGATIVE) Influenza Type B Ag NEGATIVE (NEGATIVE) RSV (PCR) NEGATIVE (Negative) 11/24/19 11/24/19 11/24/19 Range/Units 11:12 14:00 17:05 WBC (4.0-10.5) K/mm3 RBC (4.1-5.4) M/mm3 Hgb (12.0-16.0) gm/dl Hct (35-47) % MCV (78-100) fl MCH (26-32) pg MCHC (32-36) g/dl RDW (11.5-14.0) % Plt Count (150-450) K/mm3 MPV (7.5-11.0) fl Sodium (137-145) mmol/L Potassium (3.5-5.1) mmol/L Chloride (98-107) mmol/L Carbon Dioxide (22-30) mmol/L Anion Gap (5-15) MEQ/L BUN (7-17) mg/dL Creatinine (0.52-1.04) mg/dL Estimated GFR ML/MIN Glucose (74-106) mg/dL Hemoglobin A1c (4.5-6.0) % Calcium (8.4-10.2) mg/dL Troponin I 0.108 H* 0.092 H* 0.085 H* (0.000-0.034) ng/mL NT-Pro-B Natriuret Pep (0-900) pg/mL Influenza Type A Ag (NEGATIVE) Influenza Type B Ag (NEGATIVE) RSV (PCR) (Negative) 11/24/19 11/24/19 11/25/19 Range/Units 19:59 22:50 04:46 WBC 15.8 H (4.0-10.5) K/mm3 RBC 3.63 L (4.1-5.4) M/mm3 Hgb 11.2 L (12.0-16.0) gm/dl Hct 34.5 L (35-47) % MCV 95.0 (78-100) fl MCH 30.9 (26-32) pg MCHC 32.5 (32-36) g/dl RDW 13.5 (11.5-14.0) % Plt Count 255 (150-450) K/mm3 MPV 9.7 (7.5-11.0) fl Sodium (137-145) mmol/L Potassium (3.5-5.1) mmol/L Chloride (98-107) mmol/L Carbon Dioxide (22-30) mmol/L Anion Gap (5-15) MEQ/L BUN (7-17) mg/dL Creatinine (0.52-1.04) mg/dL Estimated GFR ML/MIN Glucose (74-106) mg/dL Hemoglobin A1c (4.5-6.0) % Calcium (8.4-10.2) mg/dL Troponin I 0.082 H* 0.081 H* (0.000-0.034) ng/mL NT-Pro-B Natriuret Pep (0-900) pg/mL Influenza Type A Ag (NEGATIVE) Influenza Type B Ag (NEGATIVE) RSV (PCR) (Negative) 11/25/19 Range/Units 04:46 WBC (4.0-10.5) K/mm3 RBC (4.1-5.4) M/mm3 Hgb (12.0-16.0) gm/dl Hct (35-47) % MCV (78-100) fl MCH (26-32) pg MCHC (32-36) g/dl RDW (11.5-14.0) % Plt Count (150-450) K/mm3 MPV (7.5-11.0) fl Sodium 141 (137-145) mmol/L Potassium 4.3 (3.5-5.1) mmol/L Chloride 108 H (98-107) mmol/L Carbon Dioxide 26 (22-30) mmol/L Anion Gap 11.4 (5-15) MEQ/L BUN 26 H (7-17) mg/dL Creatinine 0.84 (0.52-1.04) mg/dL Estimated GFR > 60.0 ML/MIN Glucose 168 H (74-106) mg/dL Hemoglobin A1c (4.5-6.0) % Calcium 8.6 (8.4-10.2) mg/dL Troponin I (0.000-0.034) ng/mL NT-Pro-B Natriuret Pep (0-900) pg/mL Influenza Type A Ag (NEGATIVE) Influenza Type B Ag (NEGATIVE) RSV (PCR) (Negative) Radiology Exams: Radiology Procedures Category Date Time Status CHEST 2 VIEWS (PA AND LAT) Routine Exams 11/23/19 11:30 Completed CHEST 2 VIEWS (PA AND LAT) Routine Exams 11/24/19 06:00 Completed CHEST 2 VIEWS (PA AND LAT) Routine Exams 11/25/19 06:10 Taken ECHO W/2D AND DOPPLER [US] Routine Exams 11/24/19 15:35 Taken THYROID [US] Routine Exams 11/24/19 09:19 Completed Multi-Disciplinary Progress Notes: Multi-Disciplinary Progress Notes 11/24/19 10:32 Case Management Note by Gabby Lopze NO CHANGE IN DC PLANS AT THIS TIME Initialized on 11/24/19 10:32 - END OF NOTE Assessment/Plan (1) COPD exacerbation Current Visit: No Status: Acute Assessment & Plan: Patient was weaned from IV steroids to prednisone 60 mg po daily (Day 2 of oral steroids). Continue azithromycin (Day 3) and ceftriaxone (Day 3). Continue with breathing treatments. Will check sputum culture. Will ask her actuarial science teacher, Dr. Janeth Singleton to see her. Code(s): J44.1 - CHRONIC OBSTRUCTIVE PULMONARY DISEASE W (ACUTE) EXACERBATION (2) Diabetes type 2, controlled Current Visit: No Status: Acute Qualifiers: Diabetes mellitus construction driller insulin use: without shelter use Diabetes mellitus complication status: without complication Qualified Code(s): E11.9 - Type 2 diabetes mellitus without complications Assessment & Plan: Blood glucoses are high most likely due to steroids. Will add lantus 10 units daily and continue low dose sliding scale. Code(s): E11.9 - TYPE 2 DIABETES MELLITUS WITHOUT COMPLICATIONS (3) Essential hypertension Current Visit: No Status: Acute Assessment & Plan: Blood pressures continue to be high. Will increase amlodipine from 5 mg to 10 mg. Will increase metoprolol today also. Continue losartan 50 mg po bid. Code(s): I10 - ESSENTIAL (PRIMARY) HYPERTENSION (4) Dysphagia Current Visit: Yes Status: Acute Assessment & Plan: Ask ST to see patient. May need swallow study. Code(s): R13.10 - DYSPHAGIA, UNSPECIFIED (5) Elevated troponin Current Visit: Yes Status: Acute Assessment & Plan: Patient was seen by Dr. Pickard, troponin trending down. Will plan on outpatient stress test. Code(s): R79.89 - OTHER SPECIFIED ABNORMAL FINDINGS OF BLOOD CHEMISTRY (6) DVT prophylaxis Current Visit: Yes Status: Acute Assessment & Plan: Will start lovenox and use beatriz hose also. Code(s): Z29.9 - ENCOUNTER FOR PROPHYLACTIC MEASURES, UNSPECIFIED
[2019-11-25] MEDS: ROCEPHIN 1 Gm-D5w 50 ml Bag** 1 G/50 ML IVPB IV SCH (10:38)
[2019-11-25] MEDS: ZYLOPRIM 100 MG PO SCH (10:40)
[2019-11-25] MEDS: ZOCOR 20MG PO SCH (10:40)
[2019-11-25] MEDS: Calcium 500MG W/Vit D Tablet PO SCH (10:40)
[2019-11-25] MEDS: DELTASONE 20 MG PO SCH (10:40)
[2019-11-25] MEDS: Pepcid 20 MG PO SCH ×2 (10:40→21:34)
[2019-11-25] MEDS: ENOXAPARIN SODIUM SQ SCH (10:40)
[2019-11-25] MEDS: SENOKOT 8.6 MG PO PRN (10:41)
[2019-11-25] MEDS: THERAGRAN MULTIVITAMIN PO SCH (10:41)
[2019-11-25] MEDS: Klor Con 10 MEQ PO SCH (10:41)
[2019-11-25] MEDS: Colace 100 MG PO SCH ×2 (10:41→21:33)
[2019-11-25] MEDS: ECOTRIN 81 MG PO SCH (10:41)
[2019-11-25] MEDS: NEURONTIN 300 MG PO SCH ×3 (10:41→21:33)
[2019-11-25] MEDS: SYNTHROID 112 MCG PO SCH (10:42)
[2019-11-25] MEDS: Lantus Insulin SQ SCH (10:42)
[2019-11-25] MEDS ORDERED: Cozaar 50 MG PO ONE ×2 (11:04→12:04)
[2019-11-25 11:14] LABS: Iron 97 ug/dL (37-170); Iron Saturation 37 % (20-39); TIBC 262 ug/dL (265-462)
[2019-11-25] MEDS: Zithromax 500 MG/ 250 ML NaCl Premix 500 MG/250 ML IVPB IV SCH (11:22)
[2019-11-25] MEDS: Apresoline 25 MG TABLET PO PRN (13:39)
[2019-11-25] MEDS ORDERED: hydroDIURIL 25 MG PO ONE (15:00)
[2019-11-25] MEDS: NovoLOG Insulin SQ PRN ×2 (17:09→21:33)
[2019-11-25] MEDS: REQUIP 2MG TAB PO SCH (21:34)
[2019-11-25] MEDS: Toprol Xl 50 MG PO SCH (21:34)
[2019-11-26] MEDS: Apresoline 25 MG TABLET PO PRN (03:58)
[2019-11-26] MEDS ORDERED: APRESOLINE 20 MG/ML INJ IV ONE (05:38)
[2019-11-26 06:40] LABS: Hematocrit 34.6 % (35-47); Hemoglobin 11.2 gm/dl (12.0-16.0); Mean Cell Volume 94.3 fl (78-100); Mean Corpuscular Hemoglobin 30.5 pg (26-32); Mean Corpuscular Hgb Concent. 32.4 g/dl (32-36); Mean Platelet Volume 9.6 fl (7.5-11.0); Platelet Count 246 K/mm3 (150-450); Red Blood Count 3.67 M/mm3 (4.1-5.4); Red Cell Distribution Width 13.3 % (11.5-14.0); White Blood Count 12.3 K/mm3 (4.0-10.5)
[2019-11-26 06:47] LABS: ANION GAP 10.9 MEQ/L (5-15); BLOOD UREA NITROGEN 25 mg/dL (7-17); CHLORIDE 105 mmol/L (98-107); Calcium 8.8 mg/dL (8.4-10.2); Carbon Dioxide 27 mmol/L (22-30); Creatinine 1 0.79 mg/dL (0.52-1.04); Glucose 124 mg/dL (74-106); Potassium 3.8 mmol/L (3.5-5.1); SODIUM 139 mmol/L (137-145)
[2019-11-26] MEDS: DUONEB 0.5-3 MG/3 ml Neb IH SCH ×4 (07:12→19:15)
[2019-11-26 07:24] LABS: Eosinophil 2 % (0.00-3.0); Lymphocytes 19 % (24-44); Neutrophils 79 % (36.0-66.0); Platelet Estimate NORMAL (NORMAL); Total Cells Counted 100
[2019-11-26] MEDS: Advair Hfa 115/21 Common canister IH SCH ×2 (07:25→19:16)
[2019-11-26] MEDS ORDERED: CITROMA 296 ML PO ONE (08:40)
--- NOTE | 2019-11-26 08:44 | PCM.NOTE ---
Date and Time: 11/26/19 0842 Subjective Assessment: patient remains hypertensive, still has significant cough. tolerating po, otherwise states she feels ok Objective Exam General Appearance: no apparent distress, obese Respiratory Exam: rhonchi, wheezing Cardiovascular Exam: regular rate/rhythm, normal heart sounds Gastrointestinal/Abdomen Exam: soft, No tenderness, No mass Extremity Exam: normal inspection, normal range of motion OBJECTIVE DATA Vital Signs: Vital Signs - 24 hr Temp Pulse Resp BP Pulse Ox 11/26/19 07:15 20 183/81 96 11/26/19 07:13 62 18 96 11/26/19 04:00 97.7 F 59 L 17 202/86 96 11/25/19 23:39 97.6 F 66 19 183/83 92 L 11/25/19 20:00 97.9 F 80 20 142/74 95 11/25/19 18:44 86 20 95 11/25/19 16:00 97.6 F 70 18 172/74 95 11/25/19 14:30 70 18 95 11/25/19 12:00 97.4 F 76 18 192/87 99 11/25/19 10:22 72 16 95 Pain Assessment - Last Documented Pain Intensity 0 Pain Scale Used 0-10 Pain Scale Intake and Output: Intake & Output 11/23/19 11/24/19 11/25/19 11/26/19 11:59 11:59 11:59 11:59 Intake Total 2577 3307 1480 Output Total 1900 4700 4200 Balance 677 -1393 -2720 Weight 119.3 kg 123 kg Lab Results: Accuchecks Date 11/26/19 Date 11/25/19 Time 07:30 Time 11:30 Accucheck Value: 110 Accucheck Value: 241 Accucheck Value: 237 Accucheck Value: 101 Lab Results-Last 24 Hours 11/25/19 11/25/19 11/26/19 Range/Units 10:32 10:32 05:45 WBC 12.3 H (4.0-10.5) K/mm3 RBC 3.67 L (4.1-5.4) M/mm3 Hgb 11.2 L (12.0-16.0) gm/dl Hct 34.6 L (35-47) % MCV 94.3 (78-100) fl MCH 30.5 (26-32) pg MCHC 32.4 (32-36) g/dl RDW 13.3 (11.5-14.0) % Plt Count 246 (150-450) K/mm3 MPV 9.6 (7.5-11.0) fl Segmented Neutrophils 79 H (36.0-66.0) % Lymphocytes (Manual) 19 L (24-44) % Eosinophils (Manual) 2 (0.00-3.0) % Platelet Estimate NORMAL (NORMAL) RBC Morphology NORMAL Sodium (137-145) mmol/L Potassium (3.5-5.1) mmol/L Chloride (98-107) mmol/L Carbon Dioxide (22-30) mmol/L Anion Gap (5-15) MEQ/L BUN (7-17) mg/dL Creatinine (0.52-1.04) mg/dL Estimated GFR ML/MIN Glucose (74-106) mg/dL Calcium (8.4-10.2) mg/dL Iron 97 (37-170) ug/dL TIBC 262 L (265-462) ug/dL Iron Saturation 37 (20-39) % Vitamin B12 823 (239-931) pg/mL 11/26/19 Range/Units 05:45 WBC (4.0-10.5) K/mm3 RBC (4.1-5.4) M/mm3 Hgb (12.0-16.0) gm/dl Hct (35-47) % MCV (78-100) fl MCH (26-32) pg MCHC (32-36) g/dl RDW (11.5-14.0) % Plt Count (150-450) K/mm3 MPV (7.5-11.0) fl Segmented Neutrophils (36.0-66.0) % Lymphocytes (Manual) (24-44) % Eosinophils (Manual) (0.00-3.0) % Platelet Estimate (NORMAL) RBC Morphology Sodium 139 (137-145) mmol/L Potassium 3.8 (3.5-5.1) mmol/L Chloride 105 (98-107) mmol/L Carbon Dioxide 27 (22-30) mmol/L Anion Gap 10.9 (5-15) MEQ/L BUN 25 H (7-17) mg/dL Creatinine 0.79 (0.52-1.04) mg/dL Estimated GFR > 60.0 ML/MIN Glucose 124 H (74-106) mg/dL Calcium 8.8 (8.4-10.2) mg/dL Iron (37-170) ug/dL TIBC (265-462) ug/dL Iron Saturation (20-39) % Vitamin B12 (239-931) pg/mL Radiology Exams: Radiology Procedures Category Date Time Status CHEST 2 VIEWS (PA AND LAT) Routine Exams 11/25/19 06:10 Completed ECHO W/2D AND DOPPLER [US] Routine Exams 11/24/19 15:35 Taken THYROID [US] Routine Exams 11/24/19 09:19 Completed Multi-Disciplinary Progress Notes: Multi-Disciplinary Progress Notes 11/25/19 12:31 Case Management Note by Gabby Lopez PATIENT CONTINUES TO DENY ANY NEEDS REGARDING DISCHARGE AT THIS TIME- SHE PLANS TO RETURN HOME TO HER PRIOR LEVEL OF FUNCTIONING. SHE STATES OTHERS IN HER APARTMENT BUILDING CHECK ON HER. PATIENT STATES SHE WILL BE ABLE TO GET SCRIPTS FILLED AND GET TO HER FOLLOW UP [employer] APPOINTMENTS. SHE REPORTS HER NEB MACHINE IS BROKE AT HOME. WILL NEED NEW MACHINE. INSTRUCTIONS LEFT ON CHART FOR THIS. Initialized on 11/25/19 12:31 - END OF NOTE Assessment/Plan (1) Hypertensive urgency Current Visit: Yes Status: Acute Assessment & Plan: increase hydralazine to 50mg qid, continue amlodipine 10mg, metoprolol 100mg, hctz 25mg and losartan 50mg bid Code(s): I16.0 - HYPERTENSIVE URGENCY (2) COPD exacerbation Current Visit: No Status: Acute Assessment & Plan: on room air, continue po prednisone, rocephin/zithromax Code(s): J44.1 - CHRONIC OBSTRUCTIVE PULMONARY DISEASE W (ACUTE) EXACERBATION (3) Elevated troponin Current Visit: Yes Status: Acute Code(s): R79.89 - OTHER SPECIFIED ABNORMAL FINDINGS OF BLOOD CHEMISTRY (4) Type 2 diabetes mellitus Current Visit: No Status: Chronic
[2019-11-26] MEDS ORDERED: Apresoline 25 MG TABLET PO SCH ×2 (10:00)
[2019-11-26] MEDS: Zithromax 500 MG/ 250 ML NaCl Premix 500 MG/250 ML IVPB IV SCH (10:14)
[2019-11-26] MEDS: Pepcid 20 MG PO SCH ×2 (10:17→20:45)
[2019-11-26] MEDS: NORVASC 5 MG PO SCH (10:17)
[2019-11-26] MEDS: DELTASONE 20 MG PO SCH (10:17)
[2019-11-26] MEDS: ZOCOR 20MG PO SCH (10:17)
[2019-11-26] MEDS: NEURONTIN 300 MG PO SCH ×3 (10:18→20:47)
[2019-11-26] MEDS: Cozaar 50 MG PO SCH ×2 (10:18→20:47)
[2019-11-26] MEDS: Apresoline 25 MG TABLET PO SCH ×4 (10:18→20:47)
[2019-11-26] MEDS: Colace 100 MG PO SCH ×2 (10:18→20:47)
[2019-11-26] MEDS: ZYLOPRIM 100 MG PO SCH (10:18)
[2019-11-26] MEDS: SENOKOT 8.6 MG PO PRN (10:18)
[2019-11-26] MEDS: Calcium 500MG W/Vit D Tablet PO SCH (10:18)
[2019-11-26] MEDS: ENOXAPARIN SODIUM SQ SCH (10:18)
[2019-11-26] MEDS: ECOTRIN 81 MG PO SCH (10:18)
[2019-11-26] MEDS: Klor Con 10 MEQ PO SCH (10:18)
[2019-11-26] MEDS: hydroDIURIL 25 MG PO SCH (10:18)
[2019-11-26] MEDS: THERAGRAN MULTIVITAMIN PO SCH (10:18)
[2019-11-26] MEDS: Lantus Insulin SQ SCH (10:19)
[2019-11-26] MEDS: Tussionex Pennkinetic Susp PO PRN ×2 (10:52→20:57)
[2019-11-26] MEDS: SYNTHROID 112 MCG PO SCH (10:55)
[2019-11-26] MEDS: ROCEPHIN 1 Gm-D5w 50 ml Bag** 1 G/50 ML IVPB IV SCH (11:19)
[2019-11-26] MEDS: NovoLOG Insulin SQ PRN ×2 (18:42→20:49)
[2019-11-26] MEDS: REQUIP 2MG TAB PO SCH (20:45)
[2019-11-26] MEDS: Toprol Xl 50 MG PO SCH (20:48)
[2019-11-26] MEDS: DESYREL 50 MG PO PRN (20:57)
[2019-11-27 06:05] LABS: Hematocrit 33.7 % (35-47); Hemoglobin 10.9 gm/dl (12.0-16.0); Mean Cell Volume 94.7 fl (78-100); Mean Corpuscular Hemoglobin 30.6 pg (26-32); Mean Corpuscular Hgb Concent. 32.3 g/dl (32-36); Mean Platelet Volume 9.7 fl (7.5-11.0); Platelet Count 251 K/mm3 (150-450); Red Blood Count 3.56 M/mm3 (4.1-5.4); Red Cell Distribution Width 13.5 % (11.5-14.0); White Blood Count 9.4 K/mm3 (4.0-10.5)
[2019-11-27 06:11] LABS: ANION GAP 7.4 MEQ/L (5-15); BLOOD UREA NITROGEN 30 mg/dL (7-17); CHLORIDE 108 mmol/L (98-107); Calcium 8.6 mg/dL (8.4-10.2); Carbon Dioxide 27 mmol/L (22-30); Creatinine 1 0.91 mg/dL (0.52-1.04); Glucose 134 mg/dL (74-106); Potassium 3.9 mmol/L (3.5-5.1); SODIUM 138 mmol/L (137-145)
[2019-11-27 06:24] LABS: Lymphocytes 19 % (24-44); Monocyte 1 % (0.0-12.0); Neutrophils 80 % (36.0-66.0); Poikilocytosis 1+; Total Cells Counted 100
[2019-11-27 06:25] LABS: Platelet Estimate NORMAL (NORMAL)
[2019-11-27] MEDS: Advair Hfa 115/21 Common canister IH SCH ×2 (06:30→19:12)
[2019-11-27] MEDS: DUONEB 0.5-3 MG/3 ml Neb IH SCH ×4 (06:30→19:11)
[2019-11-27] MEDS: Tussionex Pennkinetic Susp PO PRN ×3 (06:35→23:05)
--- NOTE | 2019-11-27 08:09 | PCM.NOTE ---
Date and Time: 11/27/19 08 Subjective Assessment: patient continues to have terrible fits of coughing, coughed so hard overnight had some mild hemoptysis. otherwise tolerating po intake, cough is much worse when she talks. bp has improved some Objective Exam General Appearance: no apparent distress, alert Neurologic Exam: alert, oriented x 3 Respiratory Exam: rhonchi (minimal rhonchi, mostly clear) Cardiovascular Exam: regular rate/rhythm, normal heart sounds Gastrointestinal/Abdomen Exam: soft, No tenderness, No mass Extremity Exam: normal inspection, normal range of motion OBJECTIVE DATA Vital Signs: Vital Signs - 24 hr Temp Pulse Resp BP Pulse Ox 11/27/19 07:05 71 18 97 11/27/19 04:00 98.4 F 66 18 174/74 95 11/26/19 23:37 97.8 F 77 18 140/88 97 11/26/19 19:49 97.6 F 83 18 182/81 96 11/26/19 19:15 82 14 97 11/26/19 15:52 97.7 F 81 20 133/61 94 L 11/26/19 14:43 79 18 95 11/26/19 12:18 97.8 F 75 20 141/67 97 11/26/19 10:47 71 18 95 Pain Assessment - Last Documented Pain Intensity 0 Pain Scale Used [facility] Intake and Output: Intake & Output 11/24/19 11/25/19 11/26/19 11/27/19 11:59 11:59 11:59 11:59 Intake Total 2577 3307 1600 1180 Output Total 1900 4700 4500 2800 Balance 677 -1393 -2900 -1620 Weight 123 kg 124.5 kg Lab Results: Accuchecks Date 11/27/19 Date 11/26/19 Date 11/26/19 Date 11/26/19 Time 07:30 Time 21:30 Time 16:30 Time 11:30 Accucheck Value: 132 Accucheck Value: 271 Accucheck Value: 283 Accucheck Value: 111 Lab Results-Last 24 Hours 11/27/19 11/27/19 Range/Units 05:40 05:40 WBC 9.4 (4.0-10.5) K/mm3 RBC 3.56 L (4.1-5.4) M/mm3 Hgb 10.9 L (12.0-16.0) gm/dl Hct 33.7 L (35-47) % MCV 94.7 (78-100) fl MCH 30.6 (26-32) pg MCHC 32.3 (32-36) g/dl RDW 13.5 (11.5-14.0) % Plt Count 251 (150-450) K/mm3 MPV 9.7 (7.5-11.0) fl Segmented Neutrophils 80 H (36.0-66.0) % Lymphocytes (Manual) 19 L (24-44) % Monocytes (Manual) 1 (0.0-12.0) % Platelet Estimate NORMAL (NORMAL) RBC Morphology NORMAL Poikilocytosis 1+ Sodium 138 (137-145) mmol/L Potassium 3.9 (3.5-5.1) mmol/L Chloride 108 H (98-107) mmol/L Carbon Dioxide 27 (22-30) mmol/L Anion Gap 7.4 (5-15) MEQ/L BUN 30 H (7-17) mg/dL Creatinine 0.91 (0.52-1.04) mg/dL Estimated GFR > 60.0 ML/MIN Glucose 134 H (74-106) mg/dL Calcium 8.6 (8.4-10.2) mg/dL Assessment/Plan (1) Hemoptysis Current Visit: Yes Status: Acute Assessment & Plan: cough and exam are inconsistent, with hemoptysis now present plan to check noncontrasted chest ct to r/o mass etc Code(s): R04.2 - HEMOPTYSIS (2) COPD exacerbation Current Visit: No Status: Acute Assessment & Plan: cont rocephin, zithromax, nebs and po prendisone at this time Code(s): J44.1 - CHRONIC OBSTRUCTIVE PULMONARY DISEASE W (ACUTE) EXACERBATION (3) Hypertensive urgency Current Visit: Yes Status: Acute Code(s): I16.0 - HYPERTENSIVE URGENCY (4) Elevated troponin Current Visit: Yes Status: Acute Code(s): R79.89 - OTHER SPECIFIED ABNORMAL FINDINGS OF BLOOD CHEMISTRY (5) Type 2 diabetes mellitus Current Visit: No Status: Chronic
[2019-11-27] MEDS: SYNTHROID 112 MCG PO SCH (09:45)
[2019-11-27] MEDS: NORVASC 5 MG PO SCH (09:45)
[2019-11-27] MEDS: DELTASONE 20 MG PO SCH (09:46)
[2019-11-27] MEDS: THERAGRAN MULTIVITAMIN PO SCH (09:46)
[2019-11-27] MEDS: Calcium 500MG W/Vit D Tablet PO SCH (09:46)
[2019-11-27] MEDS: ZYLOPRIM 100 MG PO SCH (09:47)
[2019-11-27] MEDS: Klor Con 10 MEQ PO SCH (09:47)
[2019-11-27] MEDS: Cozaar 50 MG PO SCH ×2 (09:47→21:05)
[2019-11-27] MEDS: Apresoline 25 MG TABLET PO SCH ×4 (09:48→21:05)
[2019-11-27] MEDS: Pepcid 20 MG PO SCH ×2 (09:48→21:04)
[2019-11-27] MEDS: hydroDIURIL 25 MG PO SCH (09:48)
[2019-11-27] MEDS: Lantus Insulin SQ SCH (09:49)
[2019-11-27] MEDS: NEURONTIN 300 MG PO SCH ×3 (09:49→21:05)
[2019-11-27] MEDS: ENOXAPARIN SODIUM SQ SCH (09:49)
[2019-11-27] MEDS: Colace 100 MG PO SCH ×2 (09:50→21:07)
[2019-11-27] MEDS: ECOTRIN 81 MG PO SCH (09:51)
[2019-11-27] MEDS: ZOCOR 20MG PO SCH (09:59)
[2019-11-27] MEDS: ROCEPHIN 1 Gm-D5w 50 ml Bag** 1 G/50 ML IVPB IV SCH (10:02)
[2019-11-27] MEDS: Zithromax 500 MG/ 250 ML NaCl Premix 500 MG/250 ML IVPB IV SCH (10:29)
[2019-11-27] MEDS: Tessalon Perles 100 MG PO PRN ×2 (13:14→21:06)
[2019-11-27] MEDS: NovoLOG Insulin SQ PRN ×2 (17:50→21:06)
--- NOTE | 2019-11-27 18:30 | XRAY ---
Indication: Severe cough. Hemoptysis. Multiple contiguous axial images obtained through the chest without contrast as ordered. Comparison: Conventional CT chest with contrast exam April 29, 2019. Lungs demonstrates increasing bilateral mid to lower lung subsegmental atelectasis/scarring. No infiltrate or effusion. Heart remains enlarged. Aorta remains arteriosclerotic without aneurysm. Stable small mediastinal lymph nodes. No pathologic mediastinal lymphadenopathy. Stable small hiatal hernia. Bony thorax again demonstrates mild degenerative changes throughout the spine. Limited upper abdomen again demonstrates fatty liver and cholecystectomy clips. Impression: 1. Again bilateral atelectasis/scarring. No acute cardiopulmonary abnormalities on this noncontrast exam. 2. Stable cardiomegaly, hiatal hernia, fatty liver, and evidence for old granulomatous disease. Comment: Preliminary interpretation was made by [facility]. No critical discrepancy.
[2019-11-27] MEDS: Toprol Xl 50 MG PO SCH (21:05)
[2019-11-27] MEDS: REQUIP 2MG TAB PO SCH (21:05)
[2019-11-28 05:12] LABS: Hematocrit 33.4 % (35-47); Hemoglobin 10.9 gm/dl (12.0-16.0); Mean Cell Volume 94.4 fl (78-100); Mean Corpuscular Hemoglobin 30.8 pg (26-32); Mean Corpuscular Hgb Concent. 32.6 g/dl (32-36); Mean Platelet Volume 9.6 fl (7.5-11.0); Platelet Count 261 K/mm3 (150-450); Red Blood Count 3.54 M/mm3 (4.1-5.4); Red Cell Distribution Width 13.5 % (11.5-14.0); White Blood Count 9.1 K/mm3 (4.0-10.5)
[2019-11-28] MEDS: DUONEB 0.5-3 MG/3 ml Neb IH SCH ×4 (05:21→19:25)
[2019-11-28] MEDS: Advair Hfa 115/21 Common canister IH SCH ×2 (05:21→19:25)
[2019-11-28 05:48] LABS: ANION GAP 8.8 MEQ/L (5-15); BLOOD UREA NITROGEN 30 mg/dL (7-17); CHLORIDE 105 mmol/L (98-107); Calcium 8.9 mg/dL (8.4-10.2); Carbon Dioxide 27 mmol/L (22-30); Creatinine 1 0.94 mg/dL (0.52-1.04); Glucose 133 mg/dL (74-106); Potassium 3.9 mmol/L (3.5-5.1); SODIUM 137 mmol/L (137-145)
[2019-11-28] MEDS: Tussionex Pennkinetic Susp PO PRN ×2 (07:33→23:04)
--- NOTE | 2019-11-28 07:38 | ECHO ---
Transthoracic echocardiographic examination and color Doppler was done on 11/24/2019. INDICATION: Shortness of breath, elevated troponin I. IMPRESSION: 1) NO REGIONAL WALL MOTION ABNORMALITY. ESTIMATED GLOBAL LEFT VENTRICULAR EJECTION FRACTION 60%. 2) MILD LEFT VENTRICULAR HYPERTROPHY. 3) LEFT VENTRICULAR DIASTOLIC DYSFUNCTION. The left ventricle is visualized and demonstrated adequate motion of all the segments. Estimated global left ventricular ejection fraction 60%. There is concentric left ventricular hypertrophy. The mitral valve is seen and this opens adequately. No significant mitral regurgitation is seen. Left atrium is normal. The aortic valve appears to open adequately. There is no significant gradient across the left ventricular outflow tract. The right side chambers are normal. There is trivial tricuspid regurgitation. Tissue Doppler study of the lateral mitral annulus suggestive of left ventricular diastolic dysfunction.
[2019-11-28] MEDS ORDERED: CHLORASEPTIC SPRAY 180 ML PO PRN (08:46)
[2019-11-28] MEDS: XYLOCAINE-MPF 1% 5ML SDV IH PRN ×2 (10:00→21:52)
[2019-11-28] MEDS: ROCEPHIN 1 Gm-D5w 50 ml Bag** 1 G/50 ML IVPB IV SCH (10:10)
[2019-11-28] MEDS: ZOCOR 20MG PO SCH (10:42)
[2019-11-28] MEDS: Calcium 500MG W/Vit D Tablet PO SCH (10:42)
[2019-11-28] MEDS: Pepcid 20 MG PO SCH ×2 (10:42→23:02)
[2019-11-28] MEDS: Klor Con 10 MEQ PO SCH (10:43)
[2019-11-28] MEDS: SENOKOT 8.6 MG PO PRN (10:43)
[2019-11-28] MEDS: Apresoline 25 MG TABLET PO SCH ×4 (10:43→23:03)
[2019-11-28] MEDS: ECOTRIN 81 MG PO SCH (10:43)
[2019-11-28] MEDS: DELTASONE 20 MG PO SCH (10:43)
[2019-11-28] MEDS: NEURONTIN 300 MG PO SCH ×3 (10:43→23:02)
[2019-11-28] MEDS: NORVASC 5 MG PO SCH (10:43)
[2019-11-28] MEDS: hydroDIURIL 25 MG PO SCH (10:43)
[2019-11-28] MEDS: Cozaar 50 MG PO SCH ×2 (10:44→23:03)
[2019-11-28] MEDS: ENOXAPARIN SODIUM SQ SCH (10:44)
[2019-11-28] MEDS: SYNTHROID 112 MCG PO SCH (10:44)
[2019-11-28] MEDS: Colace 100 MG PO SCH ×2 (10:44→23:03)
[2019-11-28] MEDS: ZYLOPRIM 100 MG PO SCH (10:44)
[2019-11-28] MEDS: Lantus Insulin SQ SCH (10:45)
[2019-11-28] MEDS: THERAGRAN MULTIVITAMIN PO SCH (11:02)
[2019-11-28] MEDS: Flonase NASAL NS SCH ×3 (11:02→11:10)
[2019-11-28] MEDS: CLARITIN 10 MG PO SCH (11:02)
[2019-11-28 11:51] LABS: Eosinophil 1 % (0.00-3.0); Lymphocytes 17 % (24-44); Monocyte 2 % (0.0-12.0); Neutrophils 80 % (36.0-66.0); Platelet Estimate NORMAL (NORMAL); Total Cells Counted 100
--- NOTE | 2019-11-28 16:52 | PCM.NOTE ---
Date and Time: 11/28/19 1647 Subjective Assessment: Patient reports continued bad cough. RT would like to try lidocaine neb to see if this helps. She reports medication for constipation helped. - Review of Systems Constitutional: No Symptoms Ears, Nose, & Throat: No Symptoms Respiratory: Cough, Other (feels like something is stuck in her throat at times) Cardiac: No Symptoms Abdominal/Gastrointestinal: No Symptoms Genitourinary Symptoms: No Symptoms Musculoskeletal: No Symptoms Objective Exam General Appearance: no apparent distress, obese, other (frequent cough) Neurologic Exam: alert, cooperative Skin Exam: normal color, warm, dry Respiratory Exam: lungs clear, other (distant but equal breath sounds), No crackles/rales, No rhonchi, No wheezing Cardiovascular Exam: regular rate/rhythm, normal heart sounds, No murmur, No friction rub, No gallop Gastrointestinal/Abdomen Exam: soft, pulsatile mass Extremity Exam: normal inspection OBJECTIVE DATA Vital Signs: Vital Signs - 24 hr Temp Pulse Resp BP Pulse Ox 11/28/19 16:37 97.8 F 84 20 129/63 84 L 11/28/19 15:01 68 18 97 11/28/19 11:46 98.0 F 65 18 180/81 95 11/28/19 11:03 74 18 97 11/28/19 10:17 74 18 97 11/28/19 07:24 97.4 F 109 H 18 152/72 96 11/28/19 05:35 98.0 F 78 17 192/83 96 11/28/19 05:21 78 18 96 11/27/19 23:18 97.9 F 86 19 170/83 97 11/27/19 19:55 98.1 F 79 20 116/53 96 11/27/19 19:11 74 18 95 Pain Assessment - Last Documented Pain Intensity 0 Pain Scale Used 0-10 Pain Scale Intake and Output: Intake & Output 11/26/19 11/27/19 11/28/19 11/29/19 06:59 06:59 06:59 06:59 Intake Total 1480 1300 1270 Output Total 4200 3100 2500 Balance -1923 -2140 -5337 Weight 124.5 kg 119.1 kg 119.1 kg Lab Results: Accuchecks Date 11/28/19 Date 11/28/19 Date 11/27/19 Time 11:30 Time 07:30 Time 21:46 Accucheck Value: 95 Accucheck Value: 107 Accucheck Value: 217 Lab Results-Last 24 Hours 11/28/19 11/28/19 Range/Units 04:22 04:22 WBC 9.1 (4.0-10.5) K/mm3 RBC 3.54 L (4.1-5.4) M/mm3 Hgb 10.9 L (12.0-16.0) gm/dl Hct 33.4 L (35-47) % MCV 94.4 (78-100) fl MCH 30.8 (26-32) pg MCHC 32.6 (32-36) g/dl RDW 13.5 (11.5-14.0) % Plt Count 261 (150-450) K/mm3 MPV 9.6 (7.5-11.0) fl Segmented Neutrophils 80 H (36.0-66.0) % Lymphocytes (Manual) 17 L (24-44) % Monocytes (Manual) 2 (0.0-12.0) % Eosinophils (Manual) 1 (0.00-3.0) % Platelet Estimate NORMAL (NORMAL) RBC Morphology NORMAL Sodium 137 (137-145) mmol/L Potassium 3.9 (3.5-5.1) mmol/L Chloride 105 (98-107) mmol/L Carbon Dioxide 27 (22-30) mmol/L Anion Gap 8.8 (5-15) MEQ/L BUN 30 H (7-17) mg/dL Creatinine 0.94 (0.52-1.04) mg/dL Estimated GFR > 60.0 ML/MIN Glucose 133 H (74-106) mg/dL Calcium 8.9 (8.4-10.2) mg/dL Radiology Exams: Radiology Procedures Category Date Time Status CHEST WITHOUT CONTRAST [CT] Routine Exams 11/27/19 08:08 Completed Multi-Disciplinary Progress Notes: Multi-Disciplinary Progress Notes 11/28/19 10:29 Respiratory Note by Ros Pal 1030 30 MIN POST LIDOCAINE TX. PT FEELS HER COUGHING IS GETTING MUCH BETTER. RAGHAV WELL Initialized on 11/28/19 10:29 - END OF NOTE 11/28/19 09:40 Case Management Note by Gabby Lopez S/W PATIENT THIS AM- NO CHANGE IN DC PLANS AT THIS TIME. PATIENT WAITING TO BE SEEN BY KUNAL SINGLETON. Initialized on 11/28/19 09:40 - END OF NOTE 11/28/19 08:26 Pharmacy Note by Poli Pereira Today is day 6 of Rocephin and Zithromax IV. Recommend changing to oral abx when able. Initialized on 11/28/19 08:26 - END OF NOTE Assessment/Plan (1) COPD exacerbation Current Visit: No Status: Acute Assessment & Plan: Decrease prednisone from 60 mg a day to 40 mg a day. She has completed 5 days of azithromycin. continue ceftriaxone Day 6. Dr. Janeth Singleton consulted and plans to see patient 11/29/2019. Noncontrast Chest CT without acute findings. Code(s): J44.1 - CHRONIC OBSTRUCTIVE PULMONARY DISEASE W (ACUTE) EXACERBATION (2) Diabetes type 2, controlled Current Visit: No Status: Acute Qualifiers: Diabetes mellitus buttermaker continuous churn insulin use: without buttermaker continuous churn use Diabetes mellitus complication status: without complication Qualified Code(s): E11.9 - Type 2 diabetes mellitus without complications Assessment & Plan: Blood glucoses currently well controlled. Code(s): E11.9 - TYPE 2 DIABETES MELLITUS WITHOUT COMPLICATIONS (3) Essential hypertension Current Visit: No Status: Acute Assessment & Plan: Blood pressure better controlled today. She is on hydralazine scheduled along with other hypertensive medications as well. Code(s): I10 - ESSENTIAL (PRIMARY) HYPERTENSION (4) Dysphagia Current Visit: Yes Status: Acute Assessment & Plan: She was seen by speech therapy and on mechanical soft diet. Code(s): R13.10 - DYSPHAGIA, UNSPECIFIED (5) Elevated troponin Current Visit: Yes Status: Acute Assessment & Plan: Dr. Pickard saw her during this hospitalization and plans to follow up with her as outpatient. Code(s): R79.89 - OTHER SPECIFIED ABNORMAL FINDINGS OF BLOOD CHEMISTRY (6) DVT prophylaxis Current Visit: Yes Status: Acute Assessment & Plan: Continue lovenox. Code(s): Z29.9 - ENCOUNTER FOR PROPHYLACTIC MEASURES, UNSPECIFIED
[2019-11-28] MEDS: NovoLOG Insulin SQ PRN ×2 (18:38→21:52)
[2019-11-28] MEDS: REQUIP 2MG TAB PO SCH (23:03)
[2019-11-28] MEDS: DESYREL 50 MG PO PRN (23:03)
[2019-11-28] MEDS: Toprol Xl 50 MG PO SCH (23:04)
[2019-11-29 04:50] LABS: Hematocrit 34.7 % (35-47); Hemoglobin 11.4 gm/dl (12.0-16.0); Mean Cell Volume 94.3 fl (78-100); Mean Corpuscular Hgb Concent. 32.9 g/dl (32-36); Mean Platelet Volume 9.4 fl (7.5-11.0); Platelet Count 274 K/mm3 (150-450); Red Blood Count 3.68 M/mm3 (4.1-5.4); Red Cell Distribution Width 13.7 % (11.5-14.0); White Blood Count 10.4 K/mm3 (4.0-10.5)
[2019-11-29 05:15] LABS: ANION GAP 9.2 MEQ/L (5-15); Creatinine 1 1.04 mg/dL (0.52-1.04); Potassium 3.8 mmol/L (3.5-5.1)
[2019-11-29] MEDS: Advair Hfa 115/21 Common canister IH SCH ×2 (07:33→20:22)
[2019-11-29] MEDS: DUONEB 0.5-3 MG/3 ml Neb IH SCH ×4 (07:33→20:21)
[2019-11-29 07:51] LABS: Eosinophil 1 % (0.00-3.0); Lymphocytes 28 % (24-44); Monocyte 8 % (0.0-12.0); Neutrophils 63 % (36.0-66.0); Platelet Estimate NORMAL (NORMAL); Total Cells Counted 100
--- NOTE | 2019-11-29 08:36 | CONS ---
CONSULT DATE: 11/28/2019 REASON FOR CONSULT: Evaluation of shortness of breath. HISTORY: Carmen Calvillo is a 73 year-old woman who has long-standing history of pulmonary problems, who had been admitted on 11/23/2019 with complaints of pneumonia. The patient reportedly has been getting sick for about a week prior to admission. She had intractable coughing spells along with minimal expectoration. The patient presented to the emergency room at [facility] where after initial evaluation she was admitted. She is currently being treated with IV antibiotics, steroids and does report clinical improvement. The patient reportedly has had history of recurrent pneumonia almost every year. Her effort tolerance is fairly preserved. She uses bronchodilators on a regular basis. She has history of underlying chronic obstructive pulmonary disease along with sleep apnea. PAST MEDICAL HISTORY: Positive for history of hypertension, diabetes mellitus usually associated with steroid use, hypothyroidism and osteoporosis along with rheumatoid arthritis. She also has history of breast cancer and restless leg syndrome. PAST SURGICAL HISTORY: Cardiac catheterization. Appendectomy. Cholecystectomy. Orthopedic surgery. Hysterectomy. Lumpectomy of the breast. PERSONAL AND SOCIAL HISTORY: She is a nonsmoker. [facility]. MEDICATIONS: Home and current medications are reviewed. ALLERGIES: MULTIPLE. LATEX. PHYSICAL EXAMINATION: This is an elderly woman who appears comfortable currently on room air. Vital signs noted. HEENT: Normocephalic. Oral exam shows small oropharynx. NECK: Supple. CVS: First and second heart sounds normal, regular, rhythmic. RESPIRATORY: Shows diminished breath sounds, fairly clear. ABDOMEN: Obese. EXTREMITIES: 1 to 2+ leg edema is present. LABORATORY DATA AND TESTS: White count 9.1, hemoglobin 10.9, hematocrit 33.4, PLT 261,000. Sputum culture is negative. Sodium 137, potassium 3.9, chloride 105, bicarb 27, glucose 133, BUN 30, creatinine 0.94. CT chest showed linear atelectasis involving right lower and middle lobes. ASSESSMENT: This is a 73 year old woman admitted with: 1) Obstructive airways disease admitted with exacerbation, clinically improving. 2) Acute bronchitis. 3) Atelectasis, chronic? 4) Comorbidities listed above. RECOMMENDATIONS: 1) The patient is showing clinical improvement. 2) Reduce steroids. 3) Increase ambulation. 4) Pulmonary function test as outpatient. 5) Continue Requip 2 mg q.h.s. for treatment of restless leg syndrome. 6) The patient is on amlodipine which may be contributing factor to her leg edema. 7) Consider echocardiogram if one has not recently been performed. I will follow up in outpatient setting. Thank you for allowing me to participate in the care of Miss Calvillo.
--- NOTE | 2019-11-29 08:39 | PCM.NOTE ---
Date and Time: 11/29/19834 Subjective Assessment: Patient reports that her cough is better but still bothersome. She reports the lidocaine treatment yesterday AM and last night at 10 pm helped and that she is going to have another one at [address] Janeth Singleton saw her yesterday evening but his not is not yet transcribed. He ordered an X-ray of her sinuses that has not been done yet. Patient concerned that her blood glucoses are higher in the AM. Discussed with her most likely due to receiving steroids in the AM. - Review of Systems Constitutional: No Symptoms Respiratory: Cough, Short Of Breath, Other (Patient reports she cannot lie flat to sleep) Cardiac: No Symptoms Abdominal/Gastrointestinal: No Constipation Genitourinary Symptoms: No Symptoms Musculoskeletal: No Symptoms Objective Exam General Appearance: no apparent distress, obese Neurologic Exam: alert, cooperative, normal mood/affect Skin Exam: normal color, warm, dry, No rash Respiratory Exam: normal breath sounds, lungs clear, other (frequent cough), No crackles/rales, No rhonchi, No wheezing Cardiovascular Exam: regular rate/rhythm, normal heart sounds, No murmur, No friction rub, No gallop Gastrointestinal/Abdomen Exam: soft, No tenderness Extremity Exam: other (no c/c./e) OBJECTIVE DATA Vital Signs: Vital Signs - 24 hr Temp Pulse Resp BP Pulse Ox 11/29/19 07:34 60 22 99 11/29/19 07:26 97.7 F 70 20 165/69 97 11/29/19 04:09 98.5 F 73 18 142/66 96 11/29/19 01:00 97.8 F 68 20 128/64 94 L 11/28/19 21:52 65 93 L 11/28/19 19:41 98.7 F 74 20 121/58 97 11/28/19 19:19 75 15 96 11/28/19 16:37 97.8 F 84 20 129/63 84 L 11/28/19 15:01 68 18 97 11/28/19 11:46 98.0 F 65 18 180/81 95 11/28/19 11:03 74 18 97 11/28/19 10:17 74 18 97 Pain Assessment - Last Documented Pain Intensity 0 Pain Scale Used 0-10 Pain Scale Intake and Output: Intake & Output 11/27/19 11/28/19 11/29/19 02/12/20 06:59 06:59 06:59 06:59 Intake Total 1300 1270 1135 Output Total 3165 3455 2419 Balance -1979 -7455 -4132 Weight 124.5 kg 119.1 kg 122.8 kg Lab Results: Accuchecks Date 11/29/19 Date 11/28/19 Date 11/28/19 Time 07:30 Time 16:30 Time 11:30 Accucheck Value: 115 Accucheck Value: 283 Accucheck Value: 308 Accucheck Value: 95 Lab Results-Last 24 Hours 11/28/19 11/29/19 11/29/19 Range/Units 04:22 04:40 04:40 WBC 10.4 (4.0-10.5) K/mm3 RBC 3.68 L (4.1-5.4) M/mm3 Hgb 11.4 L (12.0-16.0) gm/dl Hct 34.7 L (35-47) % MCV 94.3 (78-100) fl MCH 31.0 (26-32) pg MCHC 32.9 (32-36) g/dl RDW 13.7 (11.5-14.0) % Plt Count 274 (150-450) K/mm3 MPV 9.4 (7.5-11.0) fl Segmented Neutrophils 80 H 63 (36.0-66.0) % Lymphocytes (Manual) 17 L 28 (24-44) % Monocytes (Manual) 2 8 (0.0-12.0) % Eosinophils (Manual) 1 1 (0.00-3.0) % Platelet Estimate NORMAL NORMAL (NORMAL) RBC Morphology NORMAL NORMAL Sodium 138 (137-145) mmol/L Potassium 3.8 (3.5-5.1) mmol/L Chloride 104 (98-107) mmol/L Carbon Dioxide 28 (22-30) mmol/L Anion Gap 9.2 (5-15) MEQ/L BUN 33 H (7-17) mg/dL Creatinine 1.04 (0.52-1.04) mg/dL Estimated GFR 55.4 ML/MIN Glucose 116 H (74-106) mg/dL Calcium 9.0 (8.4-10.2) mg/dL Radiology Exams: Radiology Procedures Category Date Time Status CHEST WITHOUT CONTRAST [CT] Routine Exams 11/27/19 08:08 Completed SINUSES Routine Exams 11/29/19 07:00 Ordered Multi-Disciplinary Progress Notes: Multi-Disciplinary Progress Notes 11/28/19 10:29 Respiratory Note by Ros Pal 1030 30 MIN POST LIDOCAINE TX. PT FEELS HER COUGHING IS GETTING MUCH BETTER. RAGHAV WELL Initialized on 11/28/19 10:29 - END OF NOTE 11/28/19 09:40 Case Management Note by Gabby Lopez S/W PATIENT THIS AM- NO CHANGE IN DC PLANS AT THIS TIME. PATIENT WAITING TO BE SEEN BY KUNAL SINGLETON. Initialized on 11/28/19 09:40 - END OF NOTE Assessment/Plan (1) COPD exacerbation Current Visit: No Status: Acute Assessment & Plan: Continue with prednisone with wean. Continue ceftriaxone Day 6 of 10. Continue with albuterol treatments and RT following. Dr. Janeth Singleton saw her yesterday. Code(s): J44.1 - CHRONIC OBSTRUCTIVE PULMONARY DISEASE W (ACUTE) EXACERBATION (2) Diabetes type 2, controlled Current Visit: No Status: Acute Qualifiers: Diabetes mellitus technician terminal and repeater insulin use: without chcf use Diabetes mellitus complication status: without complication Qualified Code(s): E11.9 - Type 2 diabetes mellitus without complications Assessment & Plan: Higher blood glucoses most likely due to prednisone causing hyperglycemia. She does not use lantus at home. Code(s): E11.9 - TYPE 2 DIABETES MELLITUS WITHOUT COMPLICATIONS (3) Essential hypertension Current Visit: No Status: Acute Assessment & Plan: Better controlled on current regimen. Code(s): I10 - ESSENTIAL (PRIMARY) HYPERTENSION (4) Dysphagia Current Visit: Yes Status: Acute Assessment & Plan: Continue mechanical soft diet. She was seen by ST. Code(s): R13.10 - DYSPHAGIA, UNSPECIFIED (5) Elevated troponin Current Visit: Yes Status: Acute Assessment & Plan: She will follow up with Dr. Pickard as an outpatient. Code(s): R79.89 - OTHER SPECIFIED ABNORMAL FINDINGS OF BLOOD CHEMISTRY (6) DVT prophylaxis Current Visit: Yes Status: Acute Code(s): Z29.9 - ENCOUNTER FOR PROPHYLACTIC MEASURES, UNSPECIFIED
--- NOTE | 2019-11-29 09:16 | XRAY ---
Indication: Bilateral sinus pressure. URI. Comparison: None 4 views of the paranasal sinuses are clear. Minimal nasoseptal deviation to the right. Osseous structures intact without suspicious bony lesions. Patient is edentulous.
[2019-11-29] MEDS ORDERED: XYLOCAINE 1% HCL 20 ML MDV IH PRN (10:00)
[2019-11-29] MEDS: NovoLOG Insulin SQ PRN ×2 (10:05→16:18)
[2019-11-29] MEDS: ROCEPHIN 1 Gm-D5w 50 ml Bag** 1 G/50 ML IVPB IV SCH (10:06)
[2019-11-29] MEDS: ENOXAPARIN SODIUM SQ SCH (10:06)
[2019-11-29] MEDS: Colace 100 MG PO SCH ×2 (10:08→20:52)
[2019-11-29] MEDS: Klor Con 10 MEQ PO SCH (10:08)
[2019-11-29] MEDS: ZOCOR 20MG PO SCH (10:08)
[2019-11-29] MEDS: DELTASONE 20 MG PO SCH (10:08)
[2019-11-29] MEDS: NEURONTIN 300 MG PO SCH ×3 (10:09→20:52)
[2019-11-29] MEDS: ECOTRIN 81 MG PO SCH (10:09)
[2019-11-29] MEDS: CLARITIN 10 MG PO SCH (10:09)
[2019-11-29] MEDS: hydroDIURIL 25 MG PO SCH (10:09)
[2019-11-29] MEDS: ZYLOPRIM 100 MG PO SCH (10:09)
[2019-11-29] MEDS: NORVASC 5 MG PO SCH (10:10)
[2019-11-29] MEDS: Cozaar 50 MG PO SCH ×2 (10:10→20:52)
[2019-11-29] MEDS: THERAGRAN MULTIVITAMIN PO SCH (10:12)
[2019-11-29] MEDS: SENOKOT 8.6 MG PO PRN (10:12)
[2019-11-29] MEDS: Calcium 500MG W/Vit D Tablet PO SCH (10:12)
[2019-11-29] MEDS: Pepcid 20 MG PO SCH ×2 (10:13→20:51)
[2019-11-29] MEDS: Apresoline 25 MG TABLET PO SCH ×4 (10:13→20:52)
[2019-11-29] MEDS: SYNTHROID 112 MCG PO SCH (10:14)
[2019-11-29] MEDS: Flonase NASAL NS SCH (10:15)
[2019-11-29] MEDS: Lantus Insulin SQ SCH (10:37)
[2019-11-29] MEDS: REQUIP 2MG TAB PO SCH (20:51)
[2019-11-29] MEDS: Toprol Xl 50 MG PO SCH (20:52)
[2019-11-30] MEDS: DUONEB 0.5-3 MG/3 ml Neb IH SCH ×2 (06:30→10:03)
[2019-11-30] MEDS: Advair Hfa 115/21 Common canister IH SCH (06:30)
[2019-11-30 07:18] VITALS: BP 142/69; O2SAT 97
--- NOTE | 2019-11-30 08:46 | PCM.DCORD ---
- Discharge Discharge Date: 11/30/19 Disposition: Home, Self-Care Condition: Good Prescriptions: New Benzonatate 200 mg PO TID PRN #30 capsule PRN Reason: Cough Phenol/Sodium Phenolate [Chloraseptic [place] 180 ml] 1 ml PO Q4H/PRN PRN #1 bottle PRN Reason: Cough Loratadine 10 mg [Claritin 10 mg] 10 mg PO DAILY tablet Docusate Sodium 100 mg [Colace 100 MG] 100 mg PO BID #60 capsule Prednisone 20 mg [Deltasone 20 mg] 20 mg PO DAILY #5 tablet Fluticasone Propionate [Flonase NASAL] 1 gm NS DAILY #1 bottle Hydralazine HCl 25 mg PO QID #120 tablet Hydrochlorothiazide 25 mg [hydroDIURIL 25 MG] 25 mg PO DAILY #30 tablet Cefdinir [Omnicef] 300 mg PO BID #6 capsule Continue Gabapentin 300 mg PO TID #0 Potassium Chloride 10 Meq Tab* [Klor Con 10 MEQ] 10 meq PO DAILY Metoprolol Succinate 50 mg [Toprol Xl 50 MG] 50 mg PO HS #30 tablet.sa Ropinirole 2Mg [Requip 2Mg Tab] 2 mg PO HS Levothyroxine Sodium 112 Mcg [Synthroid 112 Mcg] 112 mcg PO QAM #30 tablet Omeprazole 1 tab PO BID PRN Multivitamin [Multivitamins] 1 tab PO DAILY Meclizine HCl 25 mg [Antivert 25 mg] 1 tab PO TIDPRN PRN PRN Reason: Dizziness Losartan Potassium 50 mg [Cozaar 50 MG] 1 tab PO DAILY Calcium Carbonate/Vitamin D3 [Calcium 600 + Vit D 400 Tablet] 1 tab PO DAILY Atorvastatin Calcium [Lipitor] 1 tab PO DAILY Amlodipine Besylate 5 mg [Norvasc 5 mg] 1 tab PO DAILY Allopurinol 100 mg [Zyloprim 100 mg] 1 tab PO DAILY Alendronate Sodium 35 mg PO WEEKLY Fluticasone/Salmeterol 115/21* [Advair Hfa 115/21 Mcg Inhaler] 2 puffs IH BID Albuterol 8 gm Mdi Hfa [Ventolin Hfa MDI] 2 puff IH Q4HPRN PRN PRN Reason: wheezing Aspirin EC 81 mg [Ecotrin 81 mg] 1 tab PO DAILY #0 Trazodone HCl 50 mg [Desyrel 50 mg] 50 mg PO HSPRN PRN #30 tablet PRN Reason: Insomnia Follow up with: KATHY WANG [ACTIVE STAFF] - 1 Week (F/U in 2 weeks on d/c) MARIA ANTONIA HURT [Primary Care Provider] - 1 Week MARIANNE KIRKPATRICK [ACTIVE STAFF] - 1 Week
[2019-11-30] MEDS: Flonase NASAL NS SCH (08:56)
[2019-11-30] MEDS: DELTASONE 20 MG PO SCH (08:57)
[2019-11-30] MEDS: ECOTRIN 81 MG PO SCH (08:57)
[2019-11-30] MEDS: NORVASC 5 MG PO SCH (08:57)
[2019-11-30] MEDS: Pepcid 20 MG PO SCH (08:57)
[2019-11-30] MEDS: CLARITIN 10 MG PO SCH (08:57)
[2019-11-30] MEDS: Klor Con 10 MEQ PO SCH (08:58)
[2019-11-30] MEDS: Cozaar 50 MG PO SCH (08:58)
[2019-11-30] MEDS: ZOCOR 20MG PO SCH (08:58)
[2019-11-30] MEDS: Apresoline 25 MG TABLET PO SCH ×2 (08:58→09:00)
[2019-11-30] MEDS: SENOKOT 8.6 MG PO PRN (08:58)
[2019-11-30] MEDS: NEURONTIN 300 MG PO SCH (08:59)
[2019-11-30] MEDS: Colace 100 MG PO SCH (08:59)
[2019-11-30] MEDS: Calcium 500MG W/Vit D Tablet PO SCH (08:59)
[2019-11-30] MEDS: THERAGRAN MULTIVITAMIN PO SCH (08:59)
[2019-11-30] MEDS: ZYLOPRIM 100 MG PO SCH (08:59)
[2019-11-30] MEDS: SYNTHROID 112 MCG PO SCH (09:00)
[2019-11-30] MEDS: Lantus Insulin SQ SCH (09:00)
[2019-11-30] MEDS: ROCEPHIN 1 Gm-D5w 50 ml Bag** 1 G/50 ML IVPB IV SCH (09:00)
[2019-11-30] MEDS: ENOXAPARIN SODIUM SQ SCH (09:01)
[2019-11-30] MEDS: hydroDIURIL 25 MG PO SCH (09:15)
[2019-11-30 10:07] VITALS: PULSE 72
--- NOTE | 2019-11-30 10:25 | DS ---
DISCHARGE DIAGNOSES: 1) CHRONIC OBSTRUCTIVE PULMONARY DISEASE EXACERBATION. 2) DIABETES MELLITUS TYPE 2, CONTROLLED. 3) HYPERTENSION. 4) DYSPHAGIA. 5) ELEVATED TROPONIN. DISCHARGE PHYSICAL EXAMINATION: VITALS: Temperature current 98.4F, temperature max 98.4F, heart rate 64, respiratory rate 18 and blood pressure 142/69. Oxygen saturation 97% on room air. GENERAL: The patient is a pleasant talkative lady sitting up in no acute distress. CVS: She has a regular rate and rhythm. No murmurs, gallops or rubs are appreciated. CHEST: Clear to auscultation bilaterally. No crackles or wheezes. She has a frequent deep sounding cough. ABDOMEN: Soft, nontender, nondistended. EXTREMITIES: No clubbing, cyanosis or edema. SKIN: Warm, dry and intact. HOSPITAL COURSE: 1) CHRONIC OBSTRUCTIVE PULMONARY DISEASE EXACERBATION: She was started on IV steroids which were transitioned to oral prednisone, will continue with the prednisone taper at home. She was seen by transplant registered nurse, Dr. Harsh Singleton, who plans to follow up with her as an outpatient. She was given five days of azithromycin and seven days of ceftriaxone, will finish three more days of Cefdinir 300 mg p.o. b.i.d. She required nebulizer treatments with Albuterol with ipratropium for the chronic obstructive pulmonary disease exacerbation and will need to continue these at home. Her nebulizer machine is not working so new order was written for nebulizer machine. Sometimes the Albuterol inhaler by itself does not control her wheezing so she requires the nebulizer machine and is willing to use this at home. Her cough was so severe that she did require lidocaine nebulizer treatments in the hospital and this seemed to help significantly with her cough. 2) DIABETES MELLITUS TYPE 2, CONTROLLED: Her blood sugars were somewhat higher in the hospital due to the steroids. She was on Lantus 10 units during her hospitalization. I have weaned her down to 20 mg of prednisone daily so I am not sending her home on Lantus. Will continue with her other oral medications for diabetes. 3) HYPERTENSION: Her blood pressure was high at times during the hospitalization. Hydrochlorothiazide was added as well as hydralazine. She was taking hydralazine 50 mg four times a day. I have decided to send her home on hydralazine 25 mg four times a day, hydrochlorothiazide as well as her other home blood pressure medicines. I will follow her closely in the clinic to see if those need to be adjusted after she is off the steroids and out of the hospital environment. 4) DYSPHAGIA: She was given a mechanical soft diet and seen by speech therapy. If she continues to have problems, we may need to have an esophagogram or an upper endoscopy. 5) ELEVATED TROPONIN: Her troponin was elevated during the hospitalization. Dr. Pickard saw her. Due to her respiratory condition he wanted to follow up with her as an outpatient and he plans to order a stress test as an outpatient. DISCHARGE MEDICATIONS: Please see the discharge order, plus she will also be sent home on Albuterol with ipratropium four times a day as needed for her chronic obstructive pulmonary disease. FOLLOW UP: She is to follow up with myself, Dr. Singleton and Dr. Pickard. DISPOSITION: The patient was discharged to home in good condition.
== END 2019-11-30 11:37 | disposition home or self-care (01) | DRG 190 ==
LOC: MED SURG 08:45 → OBSVTOIN 11-24 08:45
PROVIDERS: ADMIT Family Medicine; ATTEND Internal Medicine
DX: J44.1 Chronic obstructive pulmonary disease with (acute) exacerbation (principal); J18.9 Pneumonia, unspecified organism; E11.9 Type 2 diabetes mellitus without complications; I10 Essential (primary) hypertension; R13.10 Dysphagia, unspecified; R79.89 Other specified abnormal findings of blood chemistry; E78.00 Pure hypercholesterolemia, unspecified; G47.30 Sleep apnea, unspecified; E03.9 Hypothyroidism, unspecified; R06.01 Orthopnea; K21.9 Gastro-esophageal reflux disease without esophagitis; I16.0 Hypertensive urgency; R04.2 Hemoptysis; K59.00 Constipation, unspecified; R07.9 Chest pain, unspecified; E78.5 Hyperlipidemia, unspecified
CPT/HCPCS: 36415; 70220; 71046; 71250; 76536; 80048; 82607; 82962; 83036; 83540; 83550; 83880; 84484; 85025; 85027; 87070; 87631; 93005; 93306; 94150; 94640; 94760; G0378; J0360; J0456; J0696; J1650; J1815; J1940; J2930; A9270-GY

== ENCOUNTER 2021-04-08 12:22 | Observation (INO) | payer MEDICARE ==
[2021-04-08] MEDS ORDERED: Zofran 4 MG/2 ML VIAL IV ONE (12:40)
[2021-04-08] MEDS ORDERED: MORPHINE SULFATE 2 MG INJ IV ONE (12:40)
[2021-04-08] MEDS ORDERED: Zofran 4 MG/2 ML VIAL ONE (12:44)
[2021-04-08] MEDS ORDERED: MORPHINE SULFATE 2 MG INJ ONE (12:44)
[2021-04-08 13:04] LABS: Absolute Neutrophil Ct (ANC) 2.79 (1.4-6.9); BASOPHIL % 0.2 % (0.0-0.4); Basophil (Absolute #) 0.01 (0-0.4); Eosinophil % 4.7 % (0.00-5.0); Eosinophil (Absolute #) 0.24 (0-0.5); Hemoglobin 11.5 gm/dl (12.0-16.0); Lymphocyte (Absolute #) 1.46 (1.0-4.6); Lymphocytes % 28.5 % (24.0-44.0); Mean Cell Volume 90.5 fl (78-100); Mean Corpuscular Hemoglobin 28.9 pg (26-32); Mean Corpuscular Hgb Concent. 31.9 g/dl (32-36); Mean Platelet Volume 9.4 fl (7.5-11.0); Monocyte (Absolute #) 0.62 (0.0-1.3); Monocytes % 12.1 % (0.0-12.0); Neutrophil % 54.5 % (36.0-66.0); Platelet Count 254 K/mm3 (150-450); Red Blood Count 3.98 M/mm3 (4.1-5.4); Red Cell Distribution Width 13.7 % (11.5-14.0); White Blood Count 5.1 K/mm3 (4.0-10.5)
--- NOTE | 2021-04-08 13:14 | XRAY ---
Indication: Chest pain following fall. Comparison: May 30, 2020. Portable chest less inflated and remains clear again with incidental tiny right base calcified granuloma. Heart borderline enlarged. Bony thorax intact again with osteopenia, degenerative changes, and interval left shoulder arthroplasty. Impression: Nonacute chest with chronic features.
[2021-04-08 13:31] LABS: ALBUMIN 3.8 g/dL (3.5-5.0); ANION GAP 12.4 MEQ/L (5-15); BILIRUBIN,TOTAL 0.4 mg/dL (0.2-1.3); Calcium 8.7 mg/dL (8.4-10.2); Creatinine 1 1.09 mg/dL (0.52-1.04); EST GLOMERULAR FILTRATION RATE 52.2 ML/MIN; Potassium 3.6 mmol/L (3.5-5.1); Total Protein 6.3 g/dL (6.3-8.2)
--- NOTE | 2021-04-08 13:33 | ERPHSYRPT ---
- History of Present Illness Time Seen by Provider: 04/08/21 12:31 Historian: patient, family, EMS Exam Limitations: no limitations Patient Subjective Stated Complaint: CP since yesterday and fall today Triage Nursing Assessment: pt to ED c/o fall today d/t restless leg pain/cramping and CP that started yesterday. rates 4/10 pain in chest that does not radiate. heart sounds clear, lungs clear and equal but diminished in LLL. A&Ox4. denies injury during fall. no LOC. Physician History: 75 years old female with multiple medical problems presented in the ER with chief complaint of substernal chest pain off and on since yesterday dull pressure/tightness without any significant aggravating factors and partial relief after taking nitro last night. Does not report any associated dyspnea on exertion but what she has from her COPD chronically. Patient reports she has a cardiac cath done 2 weeks ago showing that she has 70% blockage in 1 and others have 40 and 50% blockages but did not have any stents placed. Patient does have history of restless legs and muscle cramps in her thighs and earlier she had a bilateral thigh cramps and she slowly went down to bring herself on the floor almost an hour ago and was not able to get up afterwards because of the pain. Denies any numbness tingling or focal weakness in lower extremities. Cramps are similar to previous episodes Timing/Duration: yesterday, intermittent, gradual onset, worse Activities at Onset: rest Quality: dullness, pressure Location: central Severity of Pain-Max: moderate Severity of Pain-Current: moderate Modifying Factors: Improves With: nothing Associated Symptoms: shortness of breath, cough, No hurts to breathe Prior Chest Pain/Cardiac Workup: cardiac cath Nitro Today/Relief: 0.4 mg x 1 Aspirin Treatment Today: 81 mg x 4, provided by EMS Allergies/Adverse Reactions: etodolac Allergy (Severe, Verified 04/08/21 12:50) Shortness of Breath risedronate sodium [From Actonel] Allergy (Severe, Verified 04/08/21 12:50) Hives adhesive tape Allergy (Intermediate, Verified 04/08/21 12:50) Rash Anesthetics - Amide Type - Select A Allergy (Verified 04/08/21 12:50) latex Adverse Reaction (Intermediate, Verified 04/08/21 12:50) Rash Home Medications: Potassium Chloride 10 Meq Tab* [Klor Con 10 MEQ] 10 meq PO DAILY 07/04/16 [History] Albuterol 8 gm Mdi Hfa [Ventolin Hfa MDI] 2 puff IH Q4HPRN PRN 08/09/19 [History] Amlodipine Besylate 5 mg [Norvasc 5 mg] 1 tab PO DAILY 08/09/19 [History] Atorvastatin Calcium [Lipitor] 1 tab PO DAILY 08/09/19 [History] Losartan Potassium 50 mg [Cozaar 50 MG] 1 tab PO DAILY 08/09/19 [History] Bisacodyl [Gentle Laxative] 10 mg PO DAILY 04/08/21 [History] Bumetanide 1 mg [Bumex 1 mg] 1 mg PO DAILY 04/08/21 [History] Isosorbide Mononitrate 30 mg [Imdur 30 MG] 30 mg PO DAILY 04/08/21 [History] Hx Tetanus, Diphtheria Vaccination/Date Given: Yes Hx Influenza Vaccination/Date Given: Yes Hx Pneumococcal Vaccination/Date Given: Yes Immunizations Up to Date: Yes Travel Risk - International Travel Have you traveled outside of the country in past 3 weeks: No - Coronavirus Screening Are you exhibiting any of the following symptoms?: No Close contact with a COVID-19 positive Pt in past 14-21 Days: No - Vaccine Status Have you recieved a Covid-19 vaccination: Yes Polisher Numeral: Moderna - Vaccination Dates Date of 2cond Vaccination (if applicable): unk - Review of Systems Constitutional: No Symptoms Eyes: No Symptoms Ears, Nose, & Throat: No Symptoms Respiratory: Cough, Dyspnea Cardiac: Chest Pain Abdominal/Gastrointestinal: No Symptoms Genitourinary Symptoms: No Symptoms Musculoskeletal: Arthralgias, Myalgias Skin: No Symptoms Neurological: No Symptoms Psychological: No Symptoms Endocrine: No Symptoms Hematologic/Lymphatic: No Symptoms Immunological/Allergic: No Symptoms - Past Medical History Pertinent Past Medical History: Yes Neurological History: Other ENT History: Cataracts, Macular Degeneration Cardiac History: Arrhythmia, High Cholesterol, Hypertension Respiratory History: Asthma, COPD, Pneumonia, Sleep Apnea Endocrine Medical History: Diabetes Type II, Hypothyroidism Musculoskeletal History: Osteoporosis, Rheumatoid Arthritis GI Medical History: No Pertinent History History: Other Psycho-Social History: Depression Female Reproductive Disorders: Breast Cancer Other Medical History: bladder leakage, restless legs, irregular heart beat per pt. bells palsy. gout. Left sided Breast CA - Past Surgical History Past Surgical History: Yes Neuro Surgical History: Other Cardiac: Cardiac Catheterization Respiratory: No Pertinent History Gastrointestinal: Appendectomy, Cholecystectomy Genitourinary: No Pertinent History Musculoskeletal: Orthopedic Surgery, Other Female Surgical History: Hysterectomy, Lumpectomy Other Surgical History: nerve from neck to face repaired from bells palsy, bilateral knee replacement, bilator rotator cuff, feet and toes surgeries, R hand carpal tunnel repair. r hand 4 fingers surgery. partial hysterectomy; left hand carpal tunnel surgery. - Social History Smoking Status: Never smoker Exposure to second hand smoke: No Alcohol Use: None Drug Use: none Patient [place] Alone: [place] Significant Family History: cancer (3 sisters with breast cancer, mother with breast cancer and was diseased from colon cancer. Uncle with breast cancer and mulitple aunts with breast cancer.) - Female History Hx Now: No - Nursing Vital Signs Nursing Vital Signs: Initial Vital Signs Temperature 98.1 F 04/08/21 12:29 Pulse Rate 63 04/08/21 12:29 Respiratory Rate 19 04/08/21 12:29 Blood Pressure 102/52 04/08/21 12:29 O2 Sat by Pulse Oximetry 99 04/08/21 12:29 Pain Scale Pain Intensity 2 - Physical Exam General Appearance: no apparent distress, alert Eye Exam: PERRL/EOMI, eyes nml inspection Ears, Nose, Throat Exam: normal ENT inspection, TMs normal, pharynx normal Neck Exam: normal inspection, non-tender, supple, full range of motion Respiratory Exam: normal breath sounds, lungs clear Cardiovascular Exam: regular rate/rhythm, normal heart sounds Gastrointestinal/Abdomen Exam: soft, normal bowel sounds, tenderness Back Exam: normal inspection, No CVA tenderness Extremity Exam: normal inspection, normal range of motion, pelvis stable Neurologic Exam: alert, oriented x 3, cooperative, pt sitter II-XII nml as tested, normal mood/affect, nml cerebellar function, sensation nml, No motor deficits Skin Exam: normal color SpO2 Interpretation: normal SpO2: 99 O2 Delivery: Room Air - Course EKG Interpreted by Me: RATE ([id number]), Sinus Rhythm, NORMAL AXIS, NORMAL INTERVALS, NORMAL QRS Ordered Tests: Active Orders 24 hr Category Date Time Status Cpht STAT Care 04/08/21 12:41 Active EKG-ER Only STAT Care 04/08/21 12:40 Active IV Insertion STAT Care 04/08/21 12:40 Active CHEST 1 VIEW (PORTABLE) Stat Exams 04/08/21 12:41 Completed CBC W DIFF Stat Lab 04/08/21 12:50 Completed CK-Creatinine Phosphokinase Stat Lab 04/08/21 12:50 Completed CMP Stat Lab 04/08/21 12:50 Completed NT PRO BNP Stat Lab 04/08/21 12:50 Completed TROPONIN Q3H Lab 04/08/21 12:45 Completed TROPONIN Q3H Lab 04/08/21 15:16 Received TROPONIN Q3H Lab 04/08/21 18:45 Ordered TROPONIN Q3H Lab 04/08/21 21:45 Ordered TROPONIN Q3H Lab 04/09/21 00:45 Ordered UA W/RFX UR CULTURE Stat Lab 04/08/21 14:15 Completed Medication Summary Discontinued Medications Generic Name Dose Route Start Last Admin Trade Name Freq PRN Reason Stop Dose Admin Morphine Sulfate 2 mg 04/08/21 12:40 04/08/21 12:45 Morphine Sulfate 2 Mg Inj IV 04/08/21 12:41 2 mg STAT ONE Administration Morphine Sulfate Confirm 04/08/21 12:44 Morphine Sulfate 2 Mg Inj Administered 04/08/21 12:45 Dose 2 mg .ROUTE .STK-MED ONE Ondansetron HCl 4 mg 04/08/21 12:40 04/08/21 12:45 Zofran 4 Mg/2 Ml Vial IV 04/08/21 12:41 4 mg STAT ONE Administration Ondansetron HCl Confirm 04/08/21 12:44 Zofran 4 Mg/2 Ml Vial Administered 04/08/21 12:45 Dose 4 mg .ROUTE .STK-MED ONE Lab/Rad Data: Laboratory Result Diagrams 04/08/21 12:50 04/08/21 12:50 Laboratory Results 04/08/21 04/08/21 04/08/21 Range/Units 14:15 12:50 12:50 WBC 5.1 (4.0-10.5) K/mm3 RBC 3.98 L (4.1-5.4) M/mm3 Hgb 11.5 L (12.0-16.0) gm/dl Hct 36.0 (35-47) % MCV 90.5 (78-100) fl MCH 28.9 (26-32) pg MCHC 31.9 L (32-36) g/dl RDW 13.7 (11.5-14.0) % Plt Count 254 (150-450) K/mm3 MPV 9.4 (7.5-11.0) fl Gran % 54.5 (36.0-66.0) % Eos # (Auto) 0.24 (0-0.5) Absolute Lymphs (auto) 1.46 (1.0-4.6) Absolute Monos (auto) 0.62 (0.0-1.3) Lymphocytes % 28.5 (24.0-44.0) % Monocytes % 12.1 H (0.0-12.0) % Eosinophils % 4.7 (0.00-5.0) % Basophils % 0.2 (0.0-0.4) % Absolute Granulocytes 2.79 (1.4-6.9) Basophils # 0.01 (0-0.4) Sodium 136 L (137-145) mmol/L Potassium 3.6 (3.5-5.1) mmol/L Chloride 102 (98-107) mmol/L Carbon Dioxide 25 (22-30) mmol/L Anion Gap 12.4 (5-15) MEQ/L BUN 18 H (7-17) mg/dL Creatinine 1.09 H (0.52-1.04) mg/dL Estimated GFR 52.2 ML/MIN Glucose 127 H (74-106) mg/dL Calcium 8.7 (8.4-10.2) mg/dL Total Bilirubin 0.40 (0.2-1.3) mg/dL AST 19 (14-36) U/L ALT 12 (0-35) U/L Alkaline Phosphatase 79 (38-126) U/L Creatine Kinase 68 (30-135) U/L Troponin I (0.000-0.034) ng/mL NT-Pro-B Natriuret Pep 294 (0-900) pg/mL Serum Total Protein 6.3 (6.3-8.2) g/dL Albumin 3.8 (3.5-5.0) g/dL Urine Color YELLOW (YELLOW) Urine Appearance CLEAR (CLEAR) Urine pH 7.0 (5-6) Ur Specific [place] 1.008 (1.005-1.025) Urine Protein NEGATIVE (Negative) Urine Ketones NEGATIVE (NEGATIVE) Urine Blood NEGATIVE (0-5) Marcus/ul Urine Nitrite NEGATIVE (NEGATIVE) Urine Bilirubin NEGATIVE (NEGATIVE) Urine Urobilinogen NEGATIVE (0-1) mg/dL Ur Leukocyte Esterase NEGATIVE (NEGATIVE) Urine WBC (Auto) NONE (0-5) /HPF Urine RBC (Auto) NONE (0-2) /HPF U Hyaline Cast (Auto) 6-10 (0-2) /LPF U Epithel Cells (Auto) RARE (FEW) /HPF Urine Bacteria (Auto) NONE (NEGATIVE) /HPF Urine Mucus (Auto) SLIGHT (NEGATIVE) /HPF Urine Culture Reflexed NO (NO) Urine Glucose NEGATIVE (NEGATIVE) mg/dL 04/08/21 Range/Units 12:45 WBC (4.0-10.5) K/mm3 RBC (4.1-5.4) M/mm3 Hgb (12.0-16.0) gm/dl Hct (35-47) % MCV (78-100) fl MCH (26-32) pg MCHC (32-36) g/dl RDW (11.5-14.0) % Plt Count (150-450) K/mm3 MPV (7.5-11.0) fl Gran % (36.0-66.0) % Eos # (Auto) (0-0.5) Absolute Lymphs (auto) (1.0-4.6) Absolute Monos (auto) (0.0-1.3) Lymphocytes % (24.0-44.0) % Monocytes % (0.0-12.0) % Eosinophils % (0.00-5.0) % Basophils % (0.0-0.4) % Absolute Granulocytes (1.4-6.9) Basophils # (0-0.4) Sodium (137-145) mmol/L Potassium (3.5-5.1) mmol/L Chloride (98-107) mmol/L Carbon Dioxide (22-30) mmol/L Anion Gap (5-15) MEQ/L BUN (7-17) mg/dL Creatinine (0.52-1.04) mg/dL Estimated GFR ML/MIN Glucose (74-106) mg/dL Calcium (8.4-10.2) mg/dL Total Bilirubin (0.2-1.3) mg/dL AST (14-36) U/L ALT (0-35) U/L Alkaline Phosphatase (38-126) U/L Creatine Kinase (30-135) U/L Troponin I < 0.012 (0.000-0.034) ng/mL NT-Pro-B Natriuret Pep (0-900) pg/mL Serum Total Protein (6.3-8.2) g/dL Albumin (3.5-5.0) g/dL Urine Color (YELLOW) Urine Appearance (CLEAR) Urine pH (5-6) Ur Specific [place] (1.005-1.025) Urine Protein (Negative) Urine Ketones (NEGATIVE) Urine Blood (0-5) Marcus/ul Urine Nitrite (NEGATIVE) Urine Bilirubin (NEGATIVE) Urine Urobilinogen (0-1) mg/dL Ur Leukocyte Esterase (NEGATIVE) Urine WBC (Auto) (0-5) /HPF Urine RBC (Auto) (0-2) /HPF U Hyaline Cast (Auto) (0-2) /LPF U Epithel Cells (Auto) (FEW) /HPF Urine Bacteria (Auto) (NEGATIVE) /HPF Urine Mucus (Auto) (NEGATIVE) /HPF Urine Culture Reflexed (NO) Urine Glucose (NEGATIVE) mg/dL - Progress Progress: improved Air Movement: good Progress Note: 04/08/21 15:28 75 years old with recent cardiac cath 70% ostial occlusion needing surgical intervention/CABG sometime soon is evaluated in the ER for intermittent chest pain since yesterday. EKG showed normal sinus rhythm with no acute ST elevation. Negative initial troponin. Chest x-ray negative for any acute cardiopulmonary findings. She has full dose aspirin prior to arrival by EMS and is given morphine, on reevaluation her pain is much improved to almost none. She also had thigh cramping which are improved and currently pain-free. Patient did not have any fall or injury. I have discussed with her primary robotic machine operator Dr. Isaac, reviewed presentation, current work-up, recommended observation admission and here at [facility] for rule out and has appointment day after tomorrow. He will also make appointment with CT surgery's sometime soon. Discussed with patient understand and agree with the plan. I have discussed with Dr. Mukherjee and patient is accepted for admission for rule out IN Blood Culture(s) Obtained: No Antibiotics given: No Discussed with Dr.: Akil, Other Will see patient in: hospital (observation) Counseled pt/family regarding: lab results, diagnosis, need for follow-up, rad results - Departure Departure Disposition: Observation Clinical Impression: Chest pain, rule out acute myocardial infarction Condition: Stable Critical Care Time: No Referrals: PRATIMA MEJIA MD [Primary Care Provider] -
[2021-04-08 14:24] LABS: Appearance CLEAR (CLEAR); Bilirubin NEGATIVE (NEGATIVE); Blood NEGATIVE Ery/ul (0-5); Epithelial Cells RARE /HPF (FEW); Glucose NEGATIVE (NEGATIVE); Ketones NEGATIVE (NEGATIVE); Leukocyte Esterase NEGATIVE (NEGATIVE); Mucus SLIGHT /HPF (NEGATIVE); Nitrite NEGATIVE (NEGATIVE); Protein,Urine Dip NEGATIVE (Negative); Specific Gravity 1.008 (1.005-1.025); Urobilinogen NEGATIVE mg/dL (0-1)
[2021-04-08] MEDS ORDERED: MORPHINE SULFATE 2 MG INJ IV PRN (17:07)
[2021-04-08] MEDS ORDERED: DUONEB 0.5-3 MG/3 ml Neb IH PRN (17:07)
[2021-04-08] MEDS ORDERED: HUMALOG SQ PRN (17:07)
[2021-04-08] MEDS ORDERED: Zofran 4 MG/2 ML VIAL IV PRN (17:07)
[2021-04-08] MEDS ORDERED: Tessalon Perles 100 MG PO PRN (20:50)
[2021-04-08] MEDS ORDERED: DESYREL 50 MG PO PRN (20:53)
[2021-04-08] MEDS: Toprol-Xl 25MG Tablets PO SCH (21:48)
[2021-04-08] MEDS: NORVASC 5 MG PO SCH (21:48)
[2021-04-08] MEDS ORDERED: Toprol Xl 50 MG PO SCH (22:00)
[2021-04-08] MEDS ORDERED: Klor Con 10 MEQ PO SCH (22:00)
[2021-04-09 05:16] LABS: Absolute Neutrophil Ct (ANC) 2.51 (1.4-6.9); BASOPHIL % 0.2 % (0.0-0.4); Basophil (Absolute #) 0.01 (0-0.4); Eosinophil (Absolute #) 0.25 (0-0.5); Hematocrit 36.4 % (35-47); Hemoglobin 11.3 gm/dl (12.0-16.0); Lymphocyte (Absolute #) 1.67 (1.0-4.6); Lymphocytes % 33.5 % (24.0-44.0); Mean Cell Volume 92.2 fl (78-100); Mean Corpuscular Hemoglobin 28.6 pg (26-32); Mean Platelet Volume 9.5 fl (7.5-11.0); Monocyte (Absolute #) 0.55 (0.0-1.3); Neutrophil % 50.3 % (36.0-66.0); Platelet Count 246 K/mm3 (150-450); Red Blood Count 3.95 M/mm3 (4.1-5.4); Red Cell Distribution Width 13.9 % (11.5-14.0)
[2021-04-09 05:36] LABS: ALBUMIN 3.8 g/dL (3.5-5.0); ANION GAP 11.5 MEQ/L (5-15); BILIRUBIN,TOTAL 0.5 mg/dL (0.2-1.3); Calcium 8.6 mg/dL (8.4-10.2); Creatinine 1 1.07 mg/dL (0.52-1.04); EST GLOMERULAR FILTRATION RATE 53.3 ML/MIN; Total Protein 6.4 g/dL (6.3-8.2)
[2021-04-09] MEDS ORDERED: TYLENOL EXTRA STRENGTH 500 MG PO PRN (08:11)
[2021-04-09] MEDS ORDERED: ZOFRAN ODT 4 MG PO PRN (09:18)
[2021-04-09] MEDS ORDERED: NORCO 5/325 MG PO PRN (09:19)
[2021-04-09] MEDS ORDERED: Tums EX 750 MG PO PRN (09:20)
[2021-04-09] MEDS ORDERED: NON-FORMULARY ITEM (Atorvastatin Calcium [Lipitor] 80 MG) PO SCH (10:00)
[2021-04-09] MEDS ORDERED: DULCOLAX 5 MG PO SCH (10:00)
[2021-04-09] MEDS ORDERED: BUMEX 1 MG PO SCH (10:00)
[2021-04-09] MEDS ORDERED: PROTONIX 40 MG IV IV SCH (10:00)
[2021-04-09] MEDS ORDERED: ENOXAPARIN SODIUM SQ SCH (10:00)
[2021-04-09] MEDS ORDERED: Imdur 30 MG PO SCH (10:00)
[2021-04-09] MEDS ORDERED: ECOTRIN 81 MG PO SCH (10:00)
[2021-04-09] MEDS ORDERED: SYNTHROID 112 MCG PO SCH (10:00)
[2021-04-09] MEDS ORDERED: hydroDIURIL 25 MG PO SCH (10:00)
[2021-04-09] MEDS ORDERED: ZOCOR 20MG PO SCH (10:00)
[2021-04-09] MEDS ORDERED: Cozaar 50 MG PO SCH (10:00)
[2021-04-09] MEDS: Toprol-Xl 25MG Tablets PO SCH (10:16)
[2021-04-09] MEDS: NORVASC 5 MG PO SCH (10:18)
[2021-04-09 11:45] VITALS: BP 130/62
--- NOTE | 2021-04-09 16:33 | PCM.DCORD ---
- Discharge Disposition: Home, Self-Care Condition: Stable Prescriptions: New Ondansetron ODT 4 MG [Zofran Odt 4 mg] 4 mg PO Q4H PRN PRN 14 Days #20 tab.rapdis PRN Reason: Nausea/Vomiting Continue Potassium Chloride 10 Meq Tab* [Klor Con 10 MEQ] 10 meq PO DAILY Metoprolol Succinate 50 mg [Toprol Xl 50 MG] 50 mg PO HS #30 tablet.sa Levothyroxine Sodium 112 Mcg [Synthroid 112 Mcg] 112 mcg PO QAM #30 tablet Losartan Potassium 50 mg [Cozaar 50 MG] 50 mg PO DAILY Amlodipine Besylate 5 mg [Norvasc 5 mg] 5 mg PO BID Albuterol 8 gm Mdi Hfa [Ventolin Hfa MDI] 2 puff IH Q4HPRN PRN PRN Reason: wheezing Aspirin EC 81 mg [Ecotrin 81 mg] 1 tab PO DAILY #0 Benzonatate 200 mg PO TID PRN #30 capsule PRN Reason: Cough Hydrochlorothiazide 25 mg [hydroDIURIL 25 MG] 25 mg PO DAILY #30 tablet Trazodone HCl 50 mg [Desyrel 50 mg] 50 mg PO HSPRN PRN #30 tablet PRN Reason: Insomnia Albuterol/Ipratropium 3ml Neb* [DUONEB 0.5-3 MG/3 ml Neb] 1 neb IH QID #150 ampul.neb Isosorbide Mononitrate 30 mg [Imdur 30 MG] 30 mg PO DAILY Bumetanide 1 mg [Bumex 1 mg] 1 mg PO DAILY Bisacodyl [Gentle Laxative] 10 mg PO DAILY Atorvastatin Calcium [Lipitor] 80 mg PO DAILY Metoprolol Succinate 25 mg Xl* [Toprol-Xl 25MG Tablets] 25 mg PO BID Additional Instructions: Patient's [facility] will stay with her overnight upon discharge. Keep upcoming appt with Dr Avalos ,Post Office Clerk Follow up with: LORENA MENJIVAR DO [ACTIVE STAFF] - 04/15/21 10:00 am
--- NOTE | 2021-04-09 16:34 | PCM.DCORD ---
- Discharge Disposition: Home, Self-Care Condition: Stable Prescriptions: New Ondansetron ODT 4 MG [Zofran Odt 4 mg] 4 mg PO Q4H PRN PRN 14 Days #20 tab.rapdis PRN Reason: Nausea/Vomiting Continue Potassium Chloride 10 Meq Tab* [Klor Con 10 MEQ] 10 meq PO DAILY Metoprolol Succinate 50 mg [Toprol Xl 50 MG] 50 mg PO HS #30 tablet.sa Levothyroxine Sodium 112 Mcg [Synthroid 112 Mcg] 112 mcg PO QAM #30 tablet Losartan Potassium 50 mg [Cozaar 50 MG] 50 mg PO DAILY Amlodipine Besylate 5 mg [Norvasc 5 mg] 5 mg PO BID Albuterol 8 gm Mdi Hfa [Ventolin Hfa MDI] 2 puff IH Q4HPRN PRN PRN Reason: wheezing Aspirin EC 81 mg [Ecotrin 81 mg] 1 tab PO DAILY #0 Benzonatate 200 mg PO TID PRN #30 capsule PRN Reason: Cough Hydrochlorothiazide 25 mg [hydroDIURIL 25 MG] 25 mg PO DAILY #30 tablet Trazodone HCl 50 mg [Desyrel 50 mg] 50 mg PO HSPRN PRN #30 tablet PRN Reason: Insomnia Albuterol/Ipratropium 3ml Neb* [DUONEB 0.5-3 MG/3 ml Neb] 1 neb IH QID #150 ampul.neb Isosorbide Mononitrate 30 mg [Imdur 30 MG] 30 mg PO DAILY Bumetanide 1 mg [Bumex 1 mg] 1 mg PO DAILY Bisacodyl [Gentle Laxative] 10 mg PO DAILY Atorvastatin Calcium [Lipitor] 80 mg PO DAILY Metoprolol Succinate 25 mg Xl* [Toprol-Xl 25MG Tablets] 25 mg PO BID Additional Instructions: Patient's [facility] will stay with her overnight upon discharge. Keep upcoming appt with Dr Avalos ,Visiting Professor Follow up with: LORENA MENJIVAR DO [ACTIVE STAFF] - 04/15/21 10:00 am
[2021-04-09 16:48] VITALS: PULSE 64; O2SAT 96
--- NOTE | 2021-04-09 16:53 | PCM.SSS ---
History of Present Illness - Chief Complaint Chief Complaint: Chest Pain R/O Acute AL History of Present Illness: is a 75 year old female with HTN,CAD,COPD,HTN,DM2,Hypothyroid. She is a patient od Dr Roberts,PCP and Dr Avalos [employer]. She presented to ER with Chest pain11/28. Recent cath showed a 90% occlusion but not stentable(?) SHe slipped and fell the day of admission. States she sat too long and leg cramped upon standing and she went down easy. Denies injury from this. Patient is admitted for observation to R/O AL. Medications & Allergies Home Medications: Home Medication List Potassium Chloride 10 Meq Tab* [Klor Con 10 MEQ] 10 meq PO DAILY 07/04/16 [History Confirmed 04/08/21] Metoprolol Succinate 50 mg [Toprol Xl 50 MG] 50 mg PO HS #30 tablet.sa 07/08/16 [Rx Confirmed 04/08/21] Levothyroxine Sodium 112 Mcg [Synthroid 112 Mcg] 112 mcg PO QAM #30 tablet 05/01/19 [Rx Confirmed 04/08/21] Albuterol 8 gm Mdi Hfa [Ventolin Hfa MDI] 2 puff IH Q4HPRN PRN 08/09/19 [History Confirmed 04/08/21] Amlodipine Besylate 5 mg [Norvasc 5 mg] 5 mg PO BID 08/09/19 [History Confirmed 04/08/21] Losartan Potassium 50 mg [Cozaar 50 MG] 50 mg PO DAILY 08/09/19 [History Confirmed 04/08/21] Aspirin EC 81 mg [Ecotrin 81 mg] 1 tab PO DAILY #0 08/15/19 [Rx Confirmed 04/08/21] Albuterol/Ipratropium 3ml Neb* [DUONEB 0.5-3 MG/3 ml Neb] 1 neb IH QID #150 ampul.neb 11/30/19 [Rx Confirmed 04/08/21] Benzonatate 200 mg PO TID PRN #30 capsule 11/30/19 [Rx Confirmed 04/08/21] Hydrochlorothiazide 25 mg [hydroDIURIL 25 MG] 25 mg PO DAILY #30 tablet 11/30/19 [Rx Confirmed 04/08/21] Trazodone HCl 50 mg [Desyrel 50 mg] 50 mg PO HSPRN PRN #30 tablet 11/30/19 [Rx Confirmed 04/08/21] Atorvastatin Calcium [Lipitor] 80 mg PO DAILY 04/08/21 [History Confirmed 04/08/21] Bisacodyl [Gentle Laxative] 10 mg PO DAILY 04/08/21 [History Confirmed 04/08/21] Bumetanide 1 mg [Bumex 1 mg] 1 mg PO DAILY 04/08/21 [History Confirmed 04/08/21] Isosorbide Mononitrate 30 mg [Imdur 30 MG] 30 mg PO DAILY 04/08/21 [History Confirmed 04/08/21] Metoprolol Succinate 25 mg Xl* [Toprol-Xl 25MG Tablets] 25 mg PO BID 04/08/21 [History Confirmed 04/08/21] Ondansetron ODT 4 MG [Zofran Odt 4 mg] 4 mg PO Q4H PRN PRN 14 Days #20 tab.rapdis 04/09/21 [Rx] Allergies/Adverse Reactions: Allergies Allergy/AdvReac Type Severity Reaction Status Date / Time etodolac Allergy Severe Shortness Verified 04/08/21 12:50 of Breath risedronate sodium Allergy Severe Hives Verified 04/08/21 12:50 [From Actonel] adhesive tape Allergy Intermediate Rash Verified 04/08/21 12:50 Anesthetics - Amide Type - Allergy Verified 04/08/21 12:50 Select A latex AdvReac Intermediate Rash Verified 04/08/21 12:50 - Past Medical History Past Medical History: Yes Neurological History: Other ENT History: Cataracts, Macular Degeneration Cardiac History: Arrhythmia, High Cholesterol, Hypertension Respiratory History: Asthma, COPD, Pneumonia, Sleep Apnea Endocrine Medical History: Diabetes Type II, Hypothyroidism Musculoskelatal History: Osteoporosis, Rheumatoid Arthritis GI Medical History: No Pertinent History History: Other Pyscho-Social History: Depression Reproductive Disorders: Breast Cancer Comment: bladder leakage, restless legs, irregular heart beat per pt. bells palsy. gout. Left sided Breast CA in 1982 - Female History Are you now?: No - Past Surgical History Past Surgical History: Yes Neuro Surgical History: Other Cardiac History: Cardiac Catheterization Respiratory Surgery: No Pertinent History GI Surgical History: Appendectomy, Cholecystectomy Genitourinary Surgical Hx: No Pertinent History Musculskeletal Surgical Hx: Orthopedic Surgery, Other Female Surgical History: Hysterectomy, Lumpectomy Other Surgical History: nerve from neck to face repaired from bells palsy, bilateral knee replacement, bilator rotator cuff, feet and toes surgeries, R hand carpal tunnel repair. r hand 4 fingers surgery. partial hysterectomy; left hand carpal tunnel surgery. - Social History Smoking Status: Never smoker Exposure to second hand smoke: No Alcohol: None Drug Use: none Significant Family History: cancer (3 sisters with breast cancer, mother with breast cancer and was diseased from colon cancer. Uncle with breast cancer and mulitple aunts with breast cancer.) - Physical Exam Vital Signs: Vital Signs - 24 hr Temp Pulse Resp BP Pulse Ox 04/09/21 11:44 97.4 F 63 20 130/62 95 04/09/21 07:35 97.5 F 61 20 139/60 97 04/09/21 04:00 98.0 F 65 18 156/72 98 04/08/21 23:19 98.3 F 62 18 105/51 93 L 04/08/21 20:00 97.6 F 65 17 109/51 97 04/08/21 17:58 98.1 F 66 20 171/72 97 04/08/21 17:34 62 20 97 Results - Labs Lab/Micro Results: Lab Results-Last 24 Hours 04/08/21 04/08/21 04/08/21 Range/Units 17:50 18:45 20:07 WBC (4.0-10.5) K/mm3 RBC (4.1-5.4) M/mm3 Hgb (12.0-16.0) gm/dl Hct (35-47) % MCV (78-100) fl MCH (26-32) pg MCHC (32-36) g/dl RDW (11.5-14.0) % Plt Count (150-450) K/mm3 MPV (7.5-11.0) fl Gran % (36.0-66.0) % Eos # (Auto) (0-0.5) Absolute Lymphs (auto) (1.0-4.6) Absolute Monos (auto) (0.0-1.3) Lymphocytes % (24.0-44.0) % Monocytes % (0.0-12.0) % Eosinophils % (0.00-5.0) % Basophils % (0.0-0.4) % Absolute Granulocytes (1.4-6.9) Basophils # (0-0.4) Sodium (137-145) mmol/L Potassium (3.5-5.1) mmol/L Chloride (98-107) mmol/L Carbon Dioxide (22-30) mmol/L Anion Gap (5-15) MEQ/L BUN (7-17) mg/dL Creatinine (0.52-1.04) mg/dL Estimated GFR ML/MIN Glucose (74-106) mg/dL POC Glucometer (74 to 106) mg/dL Hemoglobin A1c 6.28 H (4.5-6.0) % Calcium (8.4-10.2) mg/dL Magnesium (1.6-2.3) mg/dL Total Bilirubin (0.2-1.3) mg/dL AST (14-36) U/L ALT (0-35) U/L Alkaline Phosphatase (38-126) U/L Troponin I < 0.012 (0.000-0.034) ng/mL Serum Total Protein (6.3-8.2) g/dL Albumin (3.5-5.0) g/dL 25-OH Vitamin D Total (30-100) ng/mL TSH 3rd Generation 2.890 (0.47-4.68) mIU/L 04/08/21 04/08/21 04/09/21 Range/Units 20:49 22:04 01:20 WBC (4.0-10.5) K/mm3 RBC (4.1-5.4) M/mm3 Hgb (12.0-16.0) gm/dl Hct (35-47) % MCV (78-100) fl MCH (26-32) pg MCHC (32-36) g/dl RDW (11.5-14.0) % Plt Count (150-450) K/mm3 MPV (7.5-11.0) fl Gran % (36.0-66.0) % Eos # (Auto) (0-0.5) Absolute Lymphs (auto) (1.0-4.6) Absolute Monos (auto) (0.0-1.3) Lymphocytes % (24.0-44.0) % Monocytes % (0.0-12.0) % Eosinophils % (0.00-5.0) % Basophils % (0.0-0.4) % Absolute Granulocytes (1.4-6.9) Basophils # (0-0.4) Sodium (137-145) mmol/L Potassium (3.5-5.1) mmol/L Chloride (98-107) mmol/L Carbon Dioxide (22-30) mmol/L Anion Gap (5-15) MEQ/L BUN (7-17) mg/dL Creatinine (0.52-1.04) mg/dL Estimated GFR ML/MIN Glucose (74-106) mg/dL POC Glucometer 190 H (74 to 106) mg/dL Hemoglobin A1c (4.5-6.0) % Calcium (8.4-10.2) mg/dL Magnesium (1.6-2.3) mg/dL Total Bilirubin (0.2-1.3) mg/dL AST (14-36) U/L ALT (0-35) U/L Alkaline Phosphatase (38-126) U/L Troponin I < 0.012 < 0.012 (0.000-0.034) ng/mL Serum Total Protein (6.3-8.2) g/dL Albumin (3.5-5.0) g/dL 25-OH Vitamin D Total (30-100) ng/mL TSH 3rd Generation (0.47-4.68) mIU/L 04/09/21 04/09/21 04/09/21 Range/Units 05:02 05:02 07:16 WBC 5.0 (4.0-10.5) K/mm3 RBC 3.95 L (4.1-5.4) M/mm3 Hgb 11.3 L (12.0-16.0) gm/dl Hct 36.4 (35-47) % MCV 92.2 (78-100) fl MCH 28.6 (26-32) pg MCHC 31.0 L (32-36) g/dl RDW 13.9 (11.5-14.0) % Plt Count 246 (150-450) K/mm3 MPV 9.5 (7.5-11.0) fl Gran % 50.3 (36.0-66.0) % Eos # (Auto) 0.25 (0-0.5) Absolute Lymphs (auto) 1.67 (1.0-4.6) Absolute Monos (auto) 0.55 (0.0-1.3) Lymphocytes % 33.5 (24.0-44.0) % Monocytes % 11.0 (0.0-12.0) % Eosinophils % 5.0 (0.00-5.0) % Basophils % 0.2 (0.0-0.4) % Absolute Granulocytes 2.51 (1.4-6.9) Basophils # 0.01 (0-0.4) Sodium 138 (137-145) mmol/L Potassium 4.0 (3.5-5.1) mmol/L Chloride 101 (98-107) mmol/L Carbon Dioxide 30 (22-30) mmol/L Anion Gap 11.5 (5-15) MEQ/L BUN 21 H (7-17) mg/dL Creatinine 1.07 H (0.52-1.04) mg/dL Estimated GFR 53.3 ML/MIN Glucose 122 H (74-106) mg/dL POC Glucometer 117 H (74 to 106) mg/dL Hemoglobin A1c (4.5-6.0) % Calcium 8.6 (8.4-10.2) mg/dL Magnesium (1.6-2.3) mg/dL Total Bilirubin 0.50 (0.2-1.3) mg/dL AST 18 (14-36) U/L ALT 12 (0-35) U/L Alkaline Phosphatase 69 (38-126) U/L Troponin I (0.000-0.034) ng/mL Serum Total Protein 6.4 (6.3-8.2) g/dL Albumin 3.8 (3.5-5.0) g/dL 25-OH Vitamin D Total (30-100) ng/mL TSH 3rd Generation (0.47-4.68) mIU/L 04/09/21 04/09/21 04/09/21 Range/Units 08:20 08:20 11:23 WBC (4.0-10.5) K/mm3 RBC (4.1-5.4) M/mm3 Hgb (12.0-16.0) gm/dl Hct (35-47) % MCV (78-100) fl MCH (26-32) pg MCHC (32-36) g/dl RDW (11.5-14.0) % Plt Count (150-450) K/mm3 MPV (7.5-11.0) fl Gran % (36.0-66.0) % Eos # (Auto) (0-0.5) Absolute Lymphs (auto) (1.0-4.6) Absolute Monos (auto) (0.0-1.3) Lymphocytes % (24.0-44.0) % Monocytes % (0.0-12.0) % Eosinophils % (0.00-5.0) % Basophils % (0.0-0.4) % Absolute Granulocytes (1.4-6.9) Basophils # (0-0.4) Sodium (137-145) mmol/L Potassium (3.5-5.1) mmol/L Chloride (98-107) mmol/L Carbon Dioxide (22-30) mmol/L Anion Gap (5-15) MEQ/L BUN (7-17) mg/dL Creatinine (0.52-1.04) mg/dL Estimated GFR ML/MIN Glucose (74-106) mg/dL POC Glucometer 119 H (74 to 106) mg/dL Hemoglobin A1c (4.5-6.0) % Calcium (8.4-10.2) mg/dL Magnesium 2.1 (1.6-2.3) mg/dL Total Bilirubin (0.2-1.3) mg/dL AST (14-36) U/L ALT (0-35) U/L Alkaline Phosphatase (38-126) U/L Troponin I (0.000-0.034) ng/mL Serum Total Protein (6.3-8.2) g/dL Albumin (3.5-5.0) g/dL 25-OH Vitamin D Total 26.5 L (30-100) ng/mL TSH 3rd Generation (0.47-4.68) mIU/L Accuchecks Date 04/09/21 Date 04/09/21 Date 04/08/21 Time 22:00 - Radiology Impressions Radiology Exams & Impressions: Radiology Procedures Category Date Time Status CHEST 1 VIEW (PORTABLE) Stat Exams 04/08/21 12:41 Completed - Other Procedures and Tests Respiratory Therapy 04/08/21 17:34 Respiratory Therapy Assessment DAILY Assessment/Plan (1) Chest pain, rule out acute myocardial infarction Current Visit: Yes Status: Resolved Assessment & Plan: serial troponins were negative,will see [employer] Dr Avalos ,has appt for WED. 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 Diabetes mellitus complication status: without complication Qualified Code(s): E11.9 - Type 2 diabetes mellitus without complications Assessment & Plan: A1C is 6.28% Code(s): E11.9 - TYPE 2 DIABETES MELLITUS WITHOUT COMPLICATIONS (3) HTN (hypertension) Current Visit: No Status: Chronic Qualifiers: Hypertension type: essential hypertension Qualified Code(s): I10 - Essential (primary) hypertension Assessment & Plan: continue present meds Code(s): I10 - ESSENTIAL (PRIMARY) HYPERTENSION (4) Coronary arteriosclerosis Current Visit: Yes Status: Chronic (5) COPD (chronic obstructive pulmonary disease) Current Visit: Yes Status: Chronic Assessment & Plan: stable (6) Fall Current Visit: Yes Status: Acute Qualifiers: Encounter type: subsequent encounter Qualified Code(s): W19.XXXD - Unspecif ied fall, subsequent encounter Assessment & Plan: fell at home no injury but reoccurent - PT evaluated and rec Walker - Rx given Code(s): W19.XXXA - UNSPECIFIED FALL, INITIAL ENCOUNTER (7) Cephalgia Current Visit: Yes Status: Resolved Qualifiers: Headache type: unspecified Headache chronicity pattern: acute headache Assessment & Plan: patient felt it was a migraine and vmited x1, resolved with 1 dose Zophran and Hydrocodone 5mg Code(s): R51.9 - HEADACHE, UNSPECIFIED Hospital Summary - Vitals & Intake/Output Vital Signs: Vital Signs Temperature 97.4 F 04/09/21 11:44 Pulse Rate 63 04/09/21 11:44 Respiratory Rate 20 04/09/21 11:44 Blood Pressure 130/62 04/09/21 11:44 O2 Sat by Pulse Oximetry 95 04/09/21 11:44 Intake & Output: Intake & Output 04/07/21 04/08/21 04/09/21 04/10/21 11:59 11:59 11:59 11:59 Intake Total 540 Output Total 850 1200 Balance -310 -1200 Weight 123.5 kg - Lab Result Diagrams: 04/09/21 05:02 04/09/21 05:02 Lab Results-Last 24 Hrs: Lab Results-Last 24 Hours 04/08/21 04/08/21 04/08/21 Range/Units 17:50 18:45 20:07 WBC (4.0-10.5) K/mm3 RBC (4.1-5.4) M/mm3 Hgb (12.0-16.0) gm/dl Hct (35-47) % MCV (78-100) fl MCH (26-32) pg MCHC (32-36) g/dl RDW (11.5-14.0) % Plt Count (150-450) K/mm3 MPV (7.5-11.0) fl Gran % (36.0-66.0) % Eos # (Auto) (0-0.5) Absolute Lymphs (auto) (1.0-4.6) Absolute Monos (auto) (0.0-1.3) Lymphocytes % (24.0-44.0) % Monocytes % (0.0-12.0) % Eosinophils % (0.00-5.0) % Basophils % (0.0-0.4) % Absolute Granulocytes (1.4-6.9) Basophils # (0-0.4) Sodium (137-145) mmol/L Potassium (3.5-5.1) mmol/L Chloride (98-107) mmol/L Carbon Dioxide (22-30) mmol/L Anion Gap (5-15) MEQ/L BUN (7-17) mg/dL Creatinine (0.52-1.04) mg/dL Estimated GFR ML/MIN Glucose (74-106) mg/dL POC Glucometer (74 to 106) mg/dL Hemoglobin A1c 6.28 H (4.5-6.0) % Calcium (8.4-10.2) mg/dL Magnesium (1.6-2.3) mg/dL Total Bilirubin (0.2-1.3) mg/dL AST (14-36) U/L ALT (0-35) U/L Alkaline Phosphatase (38-126) U/L Troponin I < 0.012 (0.000-0.034) ng/mL Serum Total Protein (6.3-8.2) g/dL Albumin (3.5-5.0) g/dL 25-OH Vitamin D Total (30-100) ng/mL TSH 3rd Generation 2.890 (0.47-4.68) mIU/L 04/08/21 04/08/21 04/09/21 Range/Units 20:49 22:04 01:20 WBC (4.0-10.5) K/mm3 RBC (4.1-5.4) M/mm3 Hgb (12.0-16.0) gm/dl Hct (35-47) % MCV (78-100) fl MCH (26-32) pg MCHC (32-36) g/dl RDW (11.5-14.0) % Plt Count (150-450) K/mm3 MPV (7.5-11.0) fl Gran % (36.0-66.0) % Eos # (Auto) (0-0.5) Absolute Lymphs (auto) (1.0-4.6) Absolute Monos (auto) (0.0-1.3) Lymphocytes % (24.0-44.0) % Monocytes % (0.0-12.0) % Eosinophils % (0.00-5.0) % Basophils % (0.0-0.4) % Absolute Granulocytes (1.4-6.9) Basophils # (0-0.4) Sodium (137-145) mmol/L Potassium (3.5-5.1) mmol/L Chloride (98-107) mmol/L Carbon Dioxide (22-30) mmol/L Anion Gap (5-15) MEQ/L BUN (7-17) mg/dL Creatinine (0.52-1.04) mg/dL Estimated GFR ML/MIN Glucose (74-106) mg/dL POC Glucometer 190 H (74 to 106) mg/dL Hemoglobin A1c (4.5-6.0) % Calcium (8.4-10.2) mg/dL Magnesium (1.6-2.3) mg/dL Total Bilirubin (0.2-1.3) mg/dL AST (14-36) U/L ALT (0-35) U/L Alkaline Phosphatase (38-126) U/L Troponin I < 0.012 < 0.012 (0.000-0.034) ng/mL Serum Total Protein (6.3-8.2) g/dL Albumin (3.5-5.0) g/dL 25-OH Vitamin D Total (30-100) ng/mL TSH 3rd Generation (0.47-4.68) mIU/L 04/09/21 04/09/21 04/09/21 Range/Units 05:02 05:02 07:16 WBC 5.0 (4.0-10.5) K/mm3 RBC 3.95 L (4.1-5.4) M/mm3 Hgb 11.3 L (12.0-16.0) gm/dl Hct 36.4 (35-47) % MCV 92.2 (78-100) fl MCH 28.6 (26-32) pg MCHC 31.0 L (32-36) g/dl RDW 13.9 (11.5-14.0) % Plt Count 246 (150-450) K/mm3 MPV 9.5 (7.5-11.0) fl Gran % 50.3 (36.0-66.0) % Eos # (Auto) 0.25 (0-0.5) Absolute Lymphs (auto) 1.67 (1.0-4.6) Absolute Monos (auto) 0.55 (0.0-1.3) Lymphocytes % 33.5 (24.0-44.0) % Monocytes % 11.0 (0.0-12.0) % Eosinophils % 5.0 (0.00-5.0) % Basophils % 0.2 (0.0-0.4) % Absolute Granulocytes 2.51 (1.4-6.9) Basophils # 0.01 (0-0.4) Sodium 138 (137-145) mmol/L Potassium 4.0 (3.5-5.1) mmol/L Chloride 101 (98-107) mmol/L Carbon Dioxide 30 (22-30) mmol/L Anion Gap 11.5 (5-15) MEQ/L BUN 21 H (7-17) mg/dL Creatinine 1.07 H (0.52-1.04) mg/dL Estimated GFR 53.3 ML/MIN Glucose 122 H (74-106) mg/dL POC Glucometer 117 H (74 to 106) mg/dL Hemoglobin A1c (4.5-6.0) % Calcium 8.6 (8.4-10.2) mg/dL Magnesium (1.6-2.3) mg/dL Total Bilirubin 0.50 (0.2-1.3) mg/dL AST 18 (14-36) U/L ALT 12 (0-35) U/L Alkaline Phosphatase 69 (38-126) U/L Troponin I (0.000-0.034) ng/mL Serum Total Protein 6.4 (6.3-8.2) g/dL Albumin 3.8 (3.5-5.0) g/dL 25-OH Vitamin D Total (30-100) ng/mL TSH 3rd Generation (0.47-4.68) mIU/L 04/09/21 04/09/21 04/09/21 Range/Units 08:20 08:20 11:23 WBC (4.0-10.5) K/mm3 RBC (4.1-5.4) M/mm3 Hgb (12.0-16.0) gm/dl Hct (35-47) % MCV (78-100) fl MCH (26-32) pg MCHC (32-36) g/dl RDW (11.5-14.0) % Plt Count (150-450) K/mm3 MPV (7.5-11.0) fl Gran % (36.0-66.0) % Eos # (Auto) (0-0.5) Absolute Lymphs (auto) (1.0-4.6) Absolute Monos (auto) (0.0-1.3) Lymphocytes % (24.0-44.0) % Monocytes % (0.0-12.0) % Eosinophils % (0.00-5.0) % Basophils % (0.0-0.4) % Absolute Granulocytes (1.4-6.9) Basophils # (0-0.4) Sodium (137-145) mmol/L Potassium (3.5-5.1) mmol/L Chloride (98-107) mmol/L Carbon Dioxide (22-30) mmol/L Anion Gap (5-15) MEQ/L BUN (7-17) mg/dL Creatinine (0.52-1.04) mg/dL Estimated GFR ML/MIN Glucose (74-106) mg/dL POC Glucometer 119 H (74 to 106) mg/dL Hemoglobin A1c (4.5-6.0) % Calcium (8.4-10.2) mg/dL Magnesium 2.1 (1.6-2.3) mg/dL Total Bilirubin (0.2-1.3) mg/dL AST (14-36) U/L ALT (0-35) U/L Alkaline Phosphatase (38-126) U/L Troponin I (0.000-0.034) ng/mL Serum Total Protein (6.3-8.2) g/dL Albumin (3.5-5.0) g/dL 25-OH Vitamin D Total 26.5 L (30-100) ng/mL TSH 3rd Generation (0.47-4.68) mIU/L Micro Results-Entire Visit: Accuchecks Date 04/09/21 Date 04/09/21 Date 04/08/21 Time 22:00 - Radiology Exams Ordered Rad Exams-Entire Visit: Radiology Procedures Category Date Time Status CHEST 1 VIEW (PORTABLE) Stat Exams 04/08/21 12:41 Completed - Procedures and Test Procedures and Tests throughout Hospitalization: Therapy Orders & Screens 04/08/21 17:34 Respiratory Therapy Assessment DAILY Comment: Diagnosis: Chest pain rule out acute AL 04/09/21 07:13 PT Eval & Treat (MD Order) ONCE Reason for Eval:: Hx of recent fall Diagnosis: Chest Pain R/O Acute AL - Discharge Disposition: Home, Self-Care Condition: Stable Prescriptions: New Ondansetron ODT 4 MG [Zofran Odt 4 mg] 4 mg PO Q4H PRN PRN 14 Days #20 tab.rapdis PRN Reason: Nausea/Vomiting Continue Potassium Chloride 10 Meq Tab* [Klor Con 10 MEQ] 10 meq PO DAILY Metoprolol Succinate 50 mg [Toprol Xl 50 MG] 50 mg PO HS #30 tablet.sa Levothyroxine Sodium 112 Mcg [Synthroid 112 Mcg] 112 mcg PO QAM #30 tablet Losartan Potassium 50 mg [Cozaar 50 MG] 50 mg PO DAILY Amlodipine Besylate 5 mg [Norvasc 5 mg] 5 mg PO BID Albuterol 8 gm Mdi Hfa [Ventolin Hfa MDI] 2 puff IH Q4HPRN PRN PRN Reason: wheezing Aspirin EC 81 mg [Ecotrin 81 mg] 1 tab PO DAILY #0 Benzonatate 200 mg PO TID PRN #30 capsule PRN Reason: Cough Hydrochlorothiazide 25 mg [hydroDIURIL 25 MG] 25 mg PO DAILY #30 tablet Trazodone HCl 50 mg [Desyrel 50 mg] 50 mg PO HSPRN PRN #30 tablet PRN Reason: Insomnia Albuterol/Ipratropium 3ml Neb* [DUONEB 0.5-3 MG/3 ml Neb] 1 neb IH QID #150 ampul.neb Isosorbide Mononitrate 30 mg [Imdur 30 MG] 30 mg PO DAILY Bumetanide 1 mg [Bumex 1 mg] 1 mg PO DAILY Bisacodyl [Gentle Laxative] 10 mg PO DAILY Atorvastatin Calcium [Lipitor] 80 mg PO DAILY Metoprolol Succinate 25 mg Xl* [Toprol-Xl 25MG Tablets] 25 mg PO BID Instructions: Chest Pain (DC) Additional Instructions: Patient's [facility] will stay with her overnight upon discharge. Keep upcoming appt with Dr Avalos ,[employer] Follow up with: LORENA MENJIVAR DO [ACTIVE STAFF] - 04/15/21 10:00 am Forms: Discharge Instructions
--- NOTE | 2021-04-09 17:08 | PCM.DS ---
Discharge Summary Date of Admission: 04/08/21 17:02 Date of Discharge: 04/09/2021 Admitting Physician: LORENA MENJIVAR DO Primary Care Provider: PRATIMA MEJIA MD Allergies Allergies etodolac Allergy (Severe, Verified 04/08/21 12:50) Shortness of Breath risedronate sodium [From Actonel] Allergy (Severe, Verified 04/08/21 12:50) Hives adhesive tape Allergy (Intermediate, Verified 04/08/21 12:50) Rash Anesthetics - Amide Type - Select A Allergy (Verified 04/08/21 12:50) latex Adverse Reaction (Intermediate, Verified 04/08/21 12:50) Rash Hospital Summary - Hospital Course Hospital Course: Patient was admitted through ER with chest pain rule out AL. She has CAD recent cath with Dr Avalos showed 90%but was not stented -per ER physician.Patient also has COPD,HTN,DM2 and hypothyroid. - Vitals & Intake/Output Vital Signs: Vital Signs Temperature 97.4 F 04/09/21 11:44 Pulse Rate 63 04/09/21 11:44 Respiratory Rate 20 04/09/21 11:44 Blood Pressure 130/62 04/09/21 11:44 O2 Sat by Pulse Oximetry 95 04/09/21 11:44 Intake & Output: Intake & Output 04/07/21 04/08/21 04/09/21 04/10/21 11:59 11:59 11:59 11:59 Intake Total 540 Output Total 850 1200 Balance -310 -1200 Weight 123.5 kg - Lab Result Diagrams: 04/09/21 05:02 04/09/21 05:02 Lab Results-Last 24 Hrs: Lab Results-Last 24 Hours 04/08/21 04/08/21 04/08/21 Range/Units 15:47 17:50 18:45 WBC (4.0-10.5) K/mm3 RBC (4.1-5.4) M/mm3 Hgb (12.0-16.0) gm/dl Hct (35-47) % MCV (78-100) fl MCH (26-32) pg MCHC (32-36) g/dl RDW (11.5-14.0) % Plt Count (150-450) K/mm3 MPV (7.5-11.0) fl Gran % (36.0-66.0) % Eos # (Auto) (0-0.5) Absolute Lymphs (auto) (1.0-4.6) Absolute Monos (auto) (0.0-1.3) Lymphocytes % (24.0-44.0) % Monocytes % (0.0-12.0) % Eosinophils % (0.00-5.0) % Basophils % (0.0-0.4) % Absolute Granulocytes (1.4-6.9) Basophils # (0-0.4) Sodium (137-145) mmol/L Potassium (3.5-5.1) mmol/L Chloride (98-107) mmol/L Carbon Dioxide (22-30) mmol/L Anion Gap (5-15) MEQ/L BUN (7-17) mg/dL Creatinine (0.52-1.04) mg/dL Estimated GFR ML/MIN Glucose (74-106) mg/dL POC Glucometer (74 to 106) mg/dL Hemoglobin A1c 6.28 H (4.5-6.0) % Calcium (8.4-10.2) mg/dL Magnesium (1.6-2.3) mg/dL Total Bilirubin (0.2-1.3) mg/dL AST (14-36) U/L ALT (0-35) U/L Alkaline Phosphatase (38-126) U/L Troponin I < 0.012 (0.000-0.034) ng/mL Serum Total Protein (6.3-8.2) g/dL Albumin (3.5-5.0) g/dL 25-OH Vitamin D Total (30-100) ng/mL TSH 3rd Generation (0.47-4.68) mIU/L SARS-CoV-2 (PCR) NEGATIVE (NEGATIVE) 04/08/21 04/08/21 04/08/21 Range/Units 20:07 20:49 22:04 WBC (4.0-10.5) K/mm3 RBC (4.1-5.4) M/mm3 Hgb (12.0-16.0) gm/dl Hct (35-47) % MCV (78-100) fl MCH (26-32) pg MCHC (32-36) g/dl RDW (11.5-14.0) % Plt Count (150-450) K/mm3 MPV (7.5-11.0) fl Gran % (36.0-66.0) % Eos # (Auto) (0-0.5) Absolute Lymphs (auto) (1.0-4.6) Absolute Monos (auto) (0.0-1.3) Lymphocytes % (24.0-44.0) % Monocytes % (0.0-12.0) % Eosinophils % (0.00-5.0) % Basophils % (0.0-0.4) % Absolute Granulocytes (1.4-6.9) Basophils # (0-0.4) Sodium (137-145) mmol/L Potassium (3.5-5.1) mmol/L Chloride (98-107) mmol/L Carbon Dioxide (22-30) mmol/L Anion Gap (5-15) MEQ/L BUN (7-17) mg/dL Creatinine (0.52-1.04) mg/dL Estimated GFR ML/MIN Glucose (74-106) mg/dL POC Glucometer 190 H (74 to 106) mg/dL Hemoglobin A1c (4.5-6.0) % Calcium (8.4-10.2) mg/dL Magnesium (1.6-2.3) mg/dL Total Bilirubin (0.2-1.3) mg/dL AST (14-36) U/L ALT (0-35) U/L Alkaline Phosphatase (38-126) U/L Troponin I < 0.012 (0.000-0.034) ng/mL Serum Total Protein (6.3-8.2) g/dL Albumin (3.5-5.0) g/dL 25-OH Vitamin D Total (30-100) ng/mL TSH 3rd Generation 2.890 (0.47-4.68) mIU/L SARS-CoV-2 (PCR) (NEGATIVE) 04/09/21 04/09/21 04/09/21 Range/Units 01:20 05:02 05:02 WBC 5.0 (4.0-10.5) K/mm3 RBC 3.95 L (4.1-5.4) M/mm3 Hgb 11.3 L (12.0-16.0) gm/dl Hct 36.4 (35-47) % MCV 92.2 (78-100) fl MCH 28.6 (26-32) pg MCHC 31.0 L (32-36) g/dl RDW 13.9 (11.5-14.0) % Plt Count 246 (150-450) K/mm3 MPV 9.5 (7.5-11.0) fl Gran % 50.3 (36.0-66.0) % Eos # (Auto) 0.25 (0-0.5) Absolute Lymphs (auto) 1.67 (1.0-4.6) Absolute Monos (auto) 0.55 (0.0-1.3) Lymphocytes % 33.5 (24.0-44.0) % Monocytes % 11.0 (0.0-12.0) % Eosinophils % 5.0 (0.00-5.0) % Basophils % 0.2 (0.0-0.4) % Absolute Granulocytes 2.51 (1.4-6.9) Basophils # 0.01 (0-0.4) Sodium 138 (137-145) mmol/L Potassium 4.0 (3.5-5.1) mmol/L Chloride 101 (98-107) mmol/L Carbon Dioxide 30 (22-30) mmol/L Anion Gap 11.5 (5-15) MEQ/L BUN 21 H (7-17) mg/dL Creatinine 1.07 H (0.52-1.04) mg/dL Estimated GFR 53.3 ML/MIN Glucose 122 H (74-106) mg/dL POC Glucometer (74 to 106) mg/dL Hemoglobin A1c (4.5-6.0) % Calcium 8.6 (8.4-10.2) mg/dL Magnesium (1.6-2.3) mg/dL Total Bilirubin 0.50 (0.2-1.3) mg/dL AST 18 (14-36) U/L ALT 12 (0-35) U/L Alkaline Phosphatase 69 (38-126) U/L Troponin I < 0.012 (0.000-0.034) ng/mL Serum Total Protein 6.4 (6.3-8.2) g/dL Albumin 3.8 (3.5-5.0) g/dL 25-OH Vitamin D Total (30-100) ng/mL TSH 3rd Generation (0.47-4.68) mIU/L SARS-CoV-2 (PCR) (NEGATIVE) 04/09/21 04/09/21 04/09/21 Range/Units 07:16 08:20 08:20 WBC (4.0-10.5) K/mm3 RBC (4.1-5.4) M/mm3 Hgb (12.0-16.0) gm/dl Hct (35-47) % MCV (78-100) fl MCH (26-32) pg MCHC (32-36) g/dl RDW (11.5-14.0) % Plt Count (150-450) K/mm3 MPV (7.5-11.0) fl Gran % (36.0-66.0) % Eos # (Auto) (0-0.5) Absolute Lymphs (auto) (1.0-4.6) Absolute Monos (auto) (0.0-1.3) Lymphocytes % (24.0-44.0) % Monocytes % (0.0-12.0) % Eosinophils % (0.00-5.0) % Basophils % (0.0-0.4) % Absolute Granulocytes (1.4-6.9) Basophils # (0-0.4) Sodium (137-145) mmol/L Potassium (3.5-5.1) mmol/L Chloride (98-107) mmol/L Carbon Dioxide (22-30) mmol/L Anion Gap (5-15) MEQ/L BUN (7-17) mg/dL Creatinine (0.52-1.04) mg/dL Estimated GFR ML/MIN Glucose (74-106) mg/dL POC Glucometer 117 H (74 to 106) mg/dL Hemoglobin A1c (4.5-6.0) % Calcium (8.4-10.2) mg/dL Magnesium 2.1 (1.6-2.3) mg/dL Total Bilirubin (0.2-1.3) mg/dL AST (14-36) U/L ALT (0-35) U/L Alkaline Phosphatase (38-126) U/L Troponin I (0.000-0.034) ng/mL Serum Total Protein (6.3-8.2) g/dL Albumin (3.5-5.0) g/dL 25-OH Vitamin D Total 26.5 L (30-100) ng/mL TSH 3rd Generation (0.47-4.68) mIU/L SARS-CoV-2 (PCR) (NEGATIVE) 04/09/21 Range/Units 11:23 WBC (4.0-10.5) K/mm3 RBC (4.1-5.4) M/mm3 Hgb (12.0-16.0) gm/dl Hct (35-47) % MCV (78-100) fl MCH (26-32) pg MCHC (32-36) g/dl RDW (11.5-14.0) % Plt Count (150-450) K/mm3 MPV (7.5-11.0) fl Gran % (36.0-66.0) % Eos # (Auto) (0-0.5) Absolute Lymphs (auto) (1.0-4.6) Absolute Monos (auto) (0.0-1.3) Lymphocytes % (24.0-44.0) % Monocytes % (0.0-12.0) % Eosinophils % (0.00-5.0) % Basophils % (0.0-0.4) % Absolute Granulocytes (1.4-6.9) Basophils # (0-0.4) Sodium (137-145) mmol/L Potassium (3.5-5.1) mmol/L Chloride (98-107) mmol/L Carbon Dioxide (22-30) mmol/L Anion Gap (5-15) MEQ/L BUN (7-17) mg/dL Creatinine (0.52-1.04) mg/dL Estimated GFR ML/MIN Glucose (74-106) mg/dL POC Glucometer 119 H (74 to 106) mg/dL Hemoglobin A1c (4.5-6.0) % Calcium (8.4-10.2) mg/dL Magnesium (1.6-2.3) mg/dL Total Bilirubin (0.2-1.3) mg/dL AST (14-36) U/L ALT (0-35) U/L Alkaline Phosphatase (38-126) U/L Troponin I (0.000-0.034) ng/mL Serum Total Protein (6.3-8.2) g/dL Albumin (3.5-5.0) g/dL 25-OH Vitamin D Total (30-100) ng/mL TSH 3rd Generation (0.47-4.68) mIU/L SARS-CoV-2 (PCR) (NEGATIVE) Micro Results-Entire Visit: Accuchecks Date 04/09/21 Date 04/09/21 Date 04/08/21 Time 22:00 - Radiology Exams Ordered Rad Exams-Entire Visit: Radiology Procedures Category Date Time Status CHEST 1 VIEW (PORTABLE) Stat Exams 04/08/21 12:41 Completed - Procedures and Test Procedures and Tests throughout Hospitalization: Therapy Orders & Screens 04/08/21 17:34 Respiratory Therapy Assessment DAILY Comment: Diagnosis: Chest pain rule out acute AL 04/09/21 07:13 PT Eval & Treat ( Order) ONCE Reason for Eval:: Hx of recent fall Diagnosis: Chest Pain R/O Acute AL - Discharge Disposition: Home, Self-Care Condition: Stable Prescriptions: New Ondansetron ODT 4 MG [Zofran Odt 4 mg] 4 mg PO Q4H PRN PRN 14 Days #20 tab.rapdis PRN Reason: Nausea/Vomiting Continue Potassium Chloride 10 Meq Tab* [Klor Con 10 MEQ] 10 meq PO DAILY Metoprolol Succinate 50 mg [Toprol Xl 50 MG] 50 mg PO HS #30 tablet.sa Levothyroxine Sodium 112 Mcg [Synthroid 112 Mcg] 112 mcg PO QAM #30 tablet Losartan Potassium 50 mg [Cozaar 50 MG] 50 mg PO DAILY Amlodipine Besylate 5 mg [Norvasc 5 mg] 5 mg PO BID Albuterol 8 gm Mdi Hfa [Ventolin Hfa MDI] 2 puff IH Q4HPRN PRN PRN Reason: wheezing Aspirin EC 81 mg [Ecotrin 81 mg] 1 tab PO DAILY #0 Benzonatate 200 mg PO TID PRN #30 capsule PRN Reason: Cough Hydrochlorothiazide 25 mg [hydroDIURIL 25 MG] 25 mg PO DAILY #30 tablet Trazodone HCl 50 mg [Desyrel 50 mg] 50 mg PO HSPRN PRN #30 tablet PRN Reason: Insomnia Albuterol/Ipratropium 3ml Neb* [DUONEB 0.5-3 MG/3 ml Neb] 1 neb IH QID #150 ampul.neb Isosorbide Mononitrate 30 mg [Imdur 30 MG] 30 mg PO DAILY Bumetanide 1 mg [Bumex 1 mg] 1 mg PO DAILY Bisacodyl [Gentle Laxative] 10 mg PO DAILY Atorvastatin Calcium [Lipitor] 80 mg PO DAILY Metoprolol Succinate 25 mg Xl* [Toprol-Xl 25MG Tablets] 25 mg PO BID Additional Instructions: Patient's [facility] will stay with her overnight upon discharge. 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
== END 2021-04-09 17:00 | disposition home or self-care (01) ==
LOC: ED 12:22 → MED SURG 17:02
PROVIDERS: ADMIT Family Medicine; ATTEND Family Medicine
DX: R07.9 Chest pain, unspecified (principal); Z79.899 Other long term (current) drug therapy; J44.9 Chronic obstructive pulmonary disease, unspecified; I10 Essential (primary) hypertension; E78.00 Pure hypercholesterolemia, unspecified; G47.30 Sleep apnea, unspecified; E11.9 Type 2 diabetes mellitus without complications; E03.9 Hypothyroidism, unspecified; I25.10 Atherosclerotic heart disease of native coronary artery without angina pectoris; W19.XXXA Unspecified fall, initial encounter; R51.9 Headache, unspecified
CPT/HCPCS: 36000; 36415; 71045; 80053; 81001; 82306; 82550; 82947; 83036; 83735; 83880; 84443; 84484; 85025; 93005; 93041; 93268; 94760; 96374; 96375; 97161; 99285; G0378; U0003; J1650; J2270; J2405; A9270-GY

== ENCOUNTER 2024-01-18 10:54 | Observation (INO) | payer MEDICARE ==
--- NOTE | 2024-01-18 09:45 | HP ---
AMENDED REPORT: DATE OF SURGERY: 01/18/2024 HISTORY OF PRESENT ILLNESS: The patient is a 78-year-old had small amount of blood in stool a couple of weeks ago but not now. History of polyps. She is in need of follow up colonoscopy. Mother had colon cancer. Sister with cirrhosis. Also, family history of thyroid cancer and breast cancer. PAST MEDICAL HISTORY: Hypertension. Chronic obstructive pulmonary disease. Bronchitis. Arthritis. Migraine headache in the past. Hyperlipidemia. Hypothyroidism. Diabetes mellitus type II. Breast cancer. PAST SURGICAL HISTORY: Appendectomy. Cholecystectomy. Hysterectomy. Aortic valve replacement in the past. Colon polyps. Cataracts. Knee replacement. Colonoscopy. Shoulder surgery. MEDICATIONS: Isosorbide mononitrate, ipratropium, gabapentin, furosemide, fluconazole, ferrous sulfate, cyanocobalamin/cobamamide, brompheniramine/pseudoephedrine, Basaglar, atorvastatin, aspirin, alprazolam, vitamin D3, ALLERGIES: ETODOLAC (SHORTNESS OF BREATH). RISEDRONATE SODIUM (HIVES). ANESTHETIC - AMIDE TYPE - SELECT A. LATEX. ADHESIVE TAPE. FAMILY HISTORY: Pertinent for as mentioned above. SOCIAL HISTORY: No smoking. Occasional alcohol use. REVIEW OF SYSTEMS: Twelve systems reviewed. No chest pain or palpitations. Other systems negative or noncontributory as above and per preadmission questionnaire. PHYSICAL EXAMINATION: Height 5 feet 7 inches. BMI 26. GENERAL: No acute distress. HEENT: Sclerae nonicteric. EOMI. Oral mucous membranes moist. NECK: No JVD. CHEST: Decreased breath sounds consistent with chronic lung disease. CVS: Regular rate and rhythm. ABDOMEN: Soft. EXTREMITIES: No cyanosis or edema. NEURO: Alert, oriented, moving extremities symmetrically. No gross motor deficits noted. RECTAL: Deferred timed to endoscopy exam. PSYCH: Appropriate mood and affect. SKIN: Dry. IMPRESSION: History of polyps, family history of colon cancer, need follow up screening colonoscopy. Risks explained the procedure in detail including but not limited to risk of bleeding or infection, bowel injury, possibly requiring open procedure, risk of incomplete exam possibly requiring barium enema. General risk of anesthesia or sedation, risk of bowel prep but not limited to, consent obtained. Will proceed with outpatient colonoscopy under MAC anesthesia.
[2024-01-18] MEDS: Lactated Ringers 1,000 ML IV SCH (11:23)
[2024-01-18] MEDS ORDERED: Amidate 20 MG/10 ML IV ONE (12:33)
[2024-01-18] MEDS ORDERED: DIPRIVAN 200 MG/20 ML IV ONE (12:33)
[2024-01-18] MEDS ORDERED: Xylocaine-Mpf 2% 5 Ml Vial ONE (12:34)
[2024-01-18] MEDS ORDERED: ROBINUL ONE (12:41)
[2024-01-18] MEDS: DUONEB 0.5-3 MG/3 ml Neb IH ONE (13:04)
--- NOTE | 2024-01-18 13:29 | XRAY ---
Indication: Wheezing. Chronic bronchitis. Comparison: October 23, 2023 Portable chest demonstrates stable minimal left upper lobe fibrosis/scarring. No focal infiltrate, consolidation, or large effusion. Heart not enlarged again with CABG. Bony thorax intact again with osteopenia, degenerative changes, and left shoulder arthroplasty. Impression: Continued nonacute chest with chronic features.
[2024-01-18] MEDS ORDERED: Quelicin Fliptop 200 MG/10 ML ONE (13:47)
[2024-01-18] MEDS ORDERED: Zofran 4 MG/2 ML VIAL ONE (14:10)
[2024-01-18] MEDS ORDERED: DUONEB 0.5-3 MG/3 ml Neb IH ONE (16:02)
[2024-01-18] MEDS ORDERED: Atrovent 0.5MG NEBULE IH PRN (16:20)
[2024-01-18] MEDS ORDERED: DESYREL 50 MG PO PRN (16:20)
[2024-01-18] MEDS ORDERED: TYLENOL 325 MG PO PRN (16:20)
[2024-01-18] MEDS ORDERED: ZOFRAN ODT 4 MG PO PRN (16:20)
[2024-01-18] MEDS ORDERED: CHOLECALCIFEROL 10 MCG PO SCH (16:30)
[2024-01-18] MEDS ORDERED: NON-FORMULARY ITEM (Semaglutide [Ozempic] 0.25 MG/0.368 ML Pen.Injctr) SQ SCH (16:30)
[2024-01-18] MEDS ORDERED: PREDNISOLONE 5 MG PO SCH (16:30)
[2024-01-18] MEDS: solu-MEDROL 125 MG, Sterile H2O 10 ml 2 ML IV ONE (16:34)
--- NOTE | 2024-01-18 16:37 | PCM.HP ---
<ROSA BLAKELY - Last Filed: 01/18/24 16:50> History of Present Illness - Chief Complaint Chief Complaint: S/P COLONOSCOPY W/ LARNGOSPASM, EXAC OF CHRONIC BRONCHITIS REQ SUPP O2 Date: 01/18/24 History of Present Illness: is a 78 year old female with a pmhx of HTN, COPD(no home oxygen), HLD, DMII, arthritis, AFIB, ELANA (CPAP at night), CAD (s/p triple bipass 3 years ago), and breast cancer (1982)who presents s/p colonoscopy (due to rectal bleeding/h/o colon cancer),for observation after she experienced laryngospasm with exacerbation of her bronchitis. According to report, oxygen saturations dipped into the 80's. Patient was placed on non-rebreather and received solumedrol 125mg, recovering to mid 90's. Patient now on NC at 2L. Lung sounds on auscultation coarse with exp wheezing. She does endorse productive cough with yellow sputum. CXR currently showing non-acute chest. Denies fever,cp, abdominal pain, NUÑEZ, dizziness, N/V/D. - Review of Systems Constitutional: No Symptoms Eyes: No Symptoms Ears, Nose, & Throat: No Symptoms Respiratory: Cough, Short Of Breath, Wheezing Cardiac: No Symptoms Abdominal/Gastrointestinal: No Symptoms Genitourinary Symptoms: No Symptoms Musculoskeletal: No Symptoms Skin: No Symptoms Neurological: No Symptoms Psychological: No Symptoms Endocrine: No Symptoms Hematologic/Lymphatic: No Symptoms Immunological/Allergic: No Symptoms Medications & Allergies Home Medications: Home Medication List Potassium Chloride Tab* [Klor Con] 20 meq PO DAILY 07/04/16 [History Confirmed 01/18/24] Aspirin EC 81 mg [Ecotrin 81 mg] 1 tab PO DAILY #0 08/15/19 [Rx Confirmed 01/18/24] Trazodone HCl 50 mg [Desyrel 50 mg] 50 mg PO HSPRN PRN #30 tablet 11/30/19 [Rx Confirmed 01/14/24] Atorvastatin Calcium [Lipitor] 80 mg PO DAILY 04/08/21 [History Confirmed 01/18/24] Isosorbide Mononitrate 30 mg [Imdur 30 MG] 30 mg PO DAILY 04/08/21 [History Confirmed 01/18/24] Metoprolol Succinate 25 mg Xl* [Toprol-Xl 25MG Tablets] 50 mg PO DAILY 04/08/21 [History Confirmed 01/18/24] Ondansetron ODT 4 MG [Zofran Odt 4 mg] 4 mg PO Q4H PRN PRN 14 Days #20 tab.rapdis 04/09/21 [Rx Confirmed 01/14/24] ALPRAZolam 1 MG [Xanax 1 mg] 0.5 mg PO UD 01/14/24 [History Confirmed 01/18/24] Acetaminophen 325 mg [Tylenol 325 mg] 325 mg PO UD PRN 01/14/24 [History Confirmed 01/18/24] Cholecalciferol (Vitamin D3) [Vitamin D-400] 1 tab PO UD 01/14/24 [History Confirmed 01/14/24] Cyanocobalamin/Cobamamide [Vitamin B-12 5,000 Mcg Tab Sl] 1,000 mcg PO DAILY 01/14/24 [History Confirmed 01/18/24] Empagliflozin [Jardiance] 10 mg PO DAILY 01/14/24 [History Confirmed 01/18/24] Furosemide 20 mg [Lasix 20 mg] 20 mg PO UD 01/14/24 [History Confirmed 01/18/24] Ipratropium [place] 0.5 mg [Atrovent 0.5MG NEBULE] 1 vial IH Q6HPRN PRN 01/14/24 [History Confirmed 01/14/24] Levothyroxine Sodium 112 Mcg [Synthroid 112 Mcg] 125 mcg PO QAM 01/14/24 [History Confirmed 01/18/24] Multivitamin [Multi-Vitamin Daily] 1 tab PO DAILY 01/14/24 [History Confirmed 01/18/24] Semaglutide [Ozempic] 0.25 mg SQ WEEKLY 01/14/24 [History Confirmed 01/18/24] prednisoLONE [Prednisolone] 10 mg PO UD 01/14/24 [History Confirmed 01/18/24] Allergies/Adverse Reactions: Allergies Allergy/AdvReac Type Severity Reaction Status Date / Time etodolac Allergy Severe Shortness Verified 01/18/24 11:10 of Breath risedronate sodium Allergy Severe Hives Verified 01/18/24 11:10 [From Actonel] adhesive tape Allergy Intermediate Rash Verified 01/18/24 11:10 latex AdvReac Intermediate Rash Verified 01/18/24 11:10 Anesthetics - Amide Type - AdvReac Verified 01/18/24 11:10 Select A - Past Medical History Past Medical History: Yes Neurological History: Other ENT History: Cataracts, Macular Degeneration Cardiac History: Arrhythmia, High Cholesterol, Hypertension, Other Respiratory History: Asthma, COPD, Pneumonia, Sleep Apnea Endocrine Medical History: Diabetes Type II, Hypothyroidism Musculoskelatal History: Osteoporosis, Rheumatoid Arthritis GI Medical History: No Pertinent History History: Other Pyscho-Social History: Depression Reproductive Disorders: Breast Cancer Comment: bladder leakage, restless legs, irregular heart beat per pt. bells palsy. gout. Left sided Breast CA in 1982. CABG in 2020 - Female History Are you now?: No - Past Surgical History Past Surgical History: Yes Neuro Surgical History: Other Cardiac History: CABG, Cardiac Catheterization Respiratory Surgery: No Pertinent History GI Surgical History: Appendectomy, Cholecystectomy Genitourinary Surgical Hx: No Pertinent History Musculskeletal Surgical Hx: Orthopedic Surgery, Other Female Surgical History: Hysterectomy, Lumpectomy Other Surgical History: nerve from neck to face repaired from bells palsy, bilateral knee replacement, bilator rotator cuff, feet and toes surgeries, R hand carpal tunnel repair. r hand 4 fingers surgery. partial hysterectomy; left hand carpal tunnel surgery. Significant Family History: cancer (3 sisters with breast cancer, mother with breast cancer and was diseased from colon cancer. Uncle with breast cancer and mulitple aunts with breast cancer.) - Social History Smoking Status: Never smoker Exposure to second hand smoke: No Alcohol: None Drug Use: none - Social Determinants of Health Will the patient participate in the screening: Yes Do you worry about a steady place to live?: No Do you have any problems with any of the following?: No known problems In the past 12 months,have you had to go without utilities?: No Have you or anyone in your house had to go without enough: No Transportation Issues: No Has anyone in your support network made you feel unsafe?: No Does the patient want assistance with any of the above?: No - Physical Exam Vital Signs: Vital Signs - 24 hr Temp Pulse Resp BP BP Pulse Ox 01/18/24 16:19 78 22 97 01/18/24 16:00 97.8 F 97 H 20 140/66 97 01/18/24 15:42 97.8 F 97 H 20 140/66 97 01/18/24 15:14 97.8 F 81 20 122/52 96 01/18/24 15:00 97.2 F 79 20 125/55 92 L 01/18/24 14:53 97.3 F 75 20 103/54 95 01/18/24 14:46 97.3 F 71 20 110/59 95 01/18/24 14:28 97.3 F 86 18 105/51 91 L 01/18/24 13:06 86 32 H 94 L 01/18/24 11:29 96.2 F 82 16 149/83 99 01/18/24 11:22 96.2 F 82 16 149/83 99 General Appearance: no apparent distress Neurologic Exam: alert, oriented x 3, cooperative Eye Exam: PERRL/EOMI Ears, Nose, Throat Exam: normal ENT inspection Neck Exam: normal inspection Respiratory Exam: crackles/rales, wheezing Cardiovascular Exam: regular rate/rhythm, normal heart sounds Gastrointestinal/Abdomen Exam: soft, normal bowel sounds Pelvic Exam: not done Rectal Exam: deferred Back Exam: normal inspection Extremity Exam: normal inspection Skin Exam: normal color Results - Labs Lab/Micro Results: Lab Results-Last 24 Hours 01/18/24 Range/Units 11:16 POC Glucometer 126 H (74 to 106) mg/dL - Radiology Impressions Radiology Exams & Impressions: Radiology Procedures Category Date Time Status CHEST 1 VIEW (PORTABLE) Stat Exams 01/18/24 13:06 Completed - Other Procedures and Tests Respiratory Therapy 01/18/24 13:06 Respiratory Therapy Assessment DAILY 01/18/24 16:17 Oxygen NASAL CANNULA 2 lpm Assessment/Plan (1) Aspiration pneumonitis Current Visit: Yes Status: Acute Assessment & Plan: -s/p colonoscopy -CXR nonacute with chronic features -Plan for repeat CXR tomorrow -RT eval -Supplemental oxygen with goal spo2 > 92% -Solumedrol 40mg bid -tele -Nebs/INH Code(s): J69.0 - PNEUMONITIS DUE TO INHALATION OF FOOD AND VOMIT (2) COPD (chronic obstructive pulmonary disease) Current Visit: No Status: Chronic Assessment & Plan: -supplemental oxygen with goal spo2 >92% -Baseline RA, CPAP QHS (3) Type 2 diabetes mellitus Current Visit: No Status: Chronic Assessment & Plan: -SSI -ADA -A1c (4) Afib Current Visit: Yes Status: Acute Assessment & Plan: -continue home med metoprolol Code(s): I48.91 - UNSPECIFIED ATRIAL FIBRILLATION (5) HTN (hypertension) Current Visit: Yes Status: Acute Assessment & Plan: -stable, home meds continued Code(s): I10 - ESSENTIAL (PRIMARY) HYPERTENSION Telemedicine Encounter - Telemedicine Encounter Telemedicine Encounter: The entirety of this encounter was performed via Telemedicine" <COLLIN RYAN - Last Filed: 01/18/24 20:22> History of Present Illness - Chief Complaint History of Present Illness: is a 78 year old female. - Physical Exam Vital Signs: Vital Signs - 24 hr Temp Pulse Resp BP BP Pulse Ox 01/18/24 19:58 99.7 F 102 H 24 186/80 95 01/18/24 18:47 90 16 96 01/18/24 16:19 78 22 97 01/18/24 16:00 97.8 F 97 H 20 140/66 97 01/18/24 15:42 97.8 F 97 H 20 140/66 97 01/18/24 15:14 97.8 F 81 20 122/52 96 01/18/24 15:00 97.2 F 79 20 125/55 92 L 01/18/24 14:53 97.3 F 75 20 103/54 95 01/18/24 14:46 97.3 F 71 20 110/59 95 01/18/24 14:28 97.3 F 86 18 105/51 91 L 01/18/24 13:06 86 32 H 94 L 01/18/24 11:29 96.2 F 82 16 149/83 99 01/18/24 11:22 96.2 F 82 16 149/83 99 Results - Labs Lab/Micro Results: Lab Results-Last 24 Hours 01/18/24 01/18/24 01/18/24 Range/Units 11:16 17:45 17:45 WBC 8.0 (4.0-10.5) x10^3/uL RBC 4.87 (4.1-5.4) x10^6/uL Hgb 14.3 (12.0-16.0) g/dL Hct 45.0 (35-47) % MCV 92.4 (78-100) fL MCH 29.4 (26-32) pg MCHC 31.8 L (32-36) g/dL RDW 13.7 (11.5-14.0) % Plt Count 265 (150-450) x10^3/uL MPV 9.3 (7.5-11.0) fL Sodium 139 (135-145) mmol/L Potassium 3.2 L (3.5-5.1) mmol/L Chloride 104 (98-107) mmol/L Carbon Dioxide 23 (22-30) mmol/L Anion Gap 14.8 (5-15) MEQ/L BUN 11 (7-17) mg/dL Creatinine 1.20 H (0.52-1.04) mg/dL Estimated GFR 46.6 ML/MIN Glucose 184 H (74-106) mg/dL POC Glucometer 126 H (74 to 106) mg/dL Hemoglobin A1c (4.5-6.0) % Calcium 9.2 (8.4-10.2) mg/dL Total Bilirubin 0.90 (0.2-1.3) mg/dL AST 25 (14-36) U/L ALT 19 (0-35) U/L Alkaline Phosphatase 79 (38-126) U/L Serum Total Protein 7.1 (6.3-8.2) g/dL Albumin 4.1 (3.5-5.0) g/dL 01/18/24 Range/Units 17:45 WBC (4.0-10.5) x10^3/uL RBC (4.1-5.4) x10^6/uL Hgb (12.0-16.0) g/dL Hct (35-47) % MCV (78-100) fL MCH (26-32) pg MCHC (32-36) g/dL RDW (11.5-14.0) % Plt Count (150-450) x10^3/uL MPV (7.5-11.0) fL Sodium (135-145) mmol/L Potassium (3.5-5.1) mmol/L Chloride (98-107) mmol/L Carbon Dioxide (22-30) mmol/L Anion Gap (5-15) MEQ/L BUN (7-17) mg/dL Creatinine (0.52-1.04) mg/dL Estimated GFR ML/MIN Glucose (74-106) mg/dL POC Glucometer (74 to 106) mg/dL Hemoglobin A1c 4.99 (4.5-6.0) % Calcium (8.4-10.2) mg/dL Total Bilirubin (0.2-1.3) mg/dL AST (14-36) U/L ALT (0-35) U/L Alkaline Phosphatase (38-126) U/L Serum Total Protein (6.3-8.2) g/dL Albumin (3.5-5.0) g/dL - Radiology Impressions Radiology Exams & Impressions: Radiology Procedures Category Date Time Status CHEST 1 VIEW (PORTABLE) Routine Exams 01/19/24 08:00 Ordered CHEST 1 VIEW (PORTABLE) Stat Exams 01/18/24 13:06 Completed - Other Procedures and Tests Respiratory Therapy 01/18/24 13:06 Respiratory Therapy Assessment DAILY 01/18/24 16:17 Oxygen NASAL CANNULA 2 lpm Telemedicine Encounter - Telemedicine Encounter Telemedicine Encounter: The entirety of this encounter was performed via Telemedicine" SHAWN Encounter - SHAWN Encounter Attestation SHAWN Encounter Attestation: "ROBERT Lazar andhavediscussed pertinent aspects of their care with Rosa Blakely and agree with the history, physical exam (any modifications based on my personal exam will be noted below), assessment, and plan as outlined in original note. Please see immediately below for my summary of findings and additional assessment and plan along with any meaningful corrections/explanations to the Subjective/Objective portions of the SHAWN note will be noted." My portion of the encounter took place via telemedicine. -Patient noted to have increased secretions and coughing while regaining consciousness from an elective colonoscopy. Anesthesiologist also reports laryngospasm which was treated with oxygen and ambubag. Patient now on the floor continues to have a cough, though she was noted to be saturating well on room air. Suspect aspiration pneumonitis. Would do IV steroids, duonebs until patient notes improvement in her symptoms.
[2024-01-18] MEDS ORDERED: Xopenex 1.25 MG/0.5 ML UD NEBULE IH PRN (16:41)
[2024-01-18] MEDS ORDERED: VITAMIN D PO SCH ×2 (17:00→17:15)
[2024-01-18] MEDS ORDERED: XANAX 1 MG PO PRN (17:00)
[2024-01-18] MEDS ORDERED: MEDICATION INTERVENTION MC SCH (17:15)
[2024-01-18] MEDS ORDERED: Zofran 4 MG/2 ML VIAL IV PRN (17:21)
[2024-01-18 17:51] LABS: Hemoglobin 14.3 g/dL (12.0-16.0); Mean Cell Volume 92.4 fL (78-100); Mean Corpuscular Hemoglobin 29.4 pg (26-32); Mean Corpuscular Hgb Concent. 31.8 g/dL (32-36); Mean Platelet Volume 9.3 fL (7.5-11.0); Platelet Count 265 x10^3/uL (150-450); Red Blood Count 4.87 x10^6/uL (4.1-5.4); Red Cell Distribution Width 13.7 % (11.5-14.0)
[2024-01-18] MEDS: Vitamin B-12 500 MCG PO SCH (17:53)
[2024-01-18] MEDS: LASIX 20 MG PO SCH (17:54)
[2024-01-18] MEDS: THERAGRAN MULTIVITAMIN PO SCH (17:54)
[2024-01-18 18:06] LABS: ALBUMIN 4.1 g/dL (3.5-5.0); ANION GAP 14.8 MEQ/L (5-15); BILIRUBIN,TOTAL 0.9 mg/dL (0.2-1.3); Calcium 9.2 mg/dL (8.4-10.2); Creatinine 1 1.2 mg/dL (0.52-1.04); EST GLOMERULAR FILTRATION RATE 46.6 ML/MIN; Potassium 3.2 mmol/L (3.5-5.1); Total Protein 7.1 g/dL (6.3-8.2)
[2024-01-18] MEDS: DUONEB 0.5-3 MG/3 ml Neb IH SCH (18:43)
[2024-01-18] MEDS ORDERED: solu-MEDROL ONE (21:03)
[2024-01-18] MEDS: HUMALOG SQ PRN (21:08)
[2024-01-18] MEDS: Klor Con PO SCH (21:09)
[2024-01-18] MEDS ORDERED: Sterile H2O 10 ml IJ ONE (21:23)
[2024-01-18] MEDS: solu-MEDROL 40 MG, Sterile H2O 10 ml 1 ML IV SCH (21:26)
[2024-01-19 04:47] LABS: Hematocrit 40.4 % (35-47); Hemoglobin 13.1 g/dL (12.0-16.0); Mean Cell Volume 91.2 fL (78-100); Mean Corpuscular Hemoglobin 29.6 pg (26-32); Mean Corpuscular Hgb Concent. 32.4 g/dL (32-36); Mean Platelet Volume 9.4 fL (7.5-11.0); Platelet Count 272 x10^3/uL (150-450); Red Blood Count 4.43 x10^6/uL (4.1-5.4); Red Cell Distribution Width 13.6 % (11.5-14.0); White Blood Count 15.1 x10^3/uL (4.0-10.5)
[2024-01-19 05:16] LABS: ALBUMIN 3.6 g/dL (3.5-5.0); ANION GAP 12.6 MEQ/L (5-15); BILIRUBIN,TOTAL 0.6 mg/dL (0.2-1.3); Creatinine 1 1.12 mg/dL (0.52-1.04); EST GLOMERULAR FILTRATION RATE 50.7 ML/MIN; Potassium 3.7 mmol/L (3.5-5.1); Total Protein 6.5 g/dL (6.3-8.2)
--- NOTE | 2024-01-19 08:01 | OP ---
SURGERY DATE/TIME: 01/18/2024 1233 PREOPERATIVE DIAGNOSIS: Family history of colon cancer, history of polyps in the past, history of some transient rectal bleeding two or three weeks ago resolved, need for screening colonoscopy. POSTOPERATIVE DIAGNOSES: 1) Fair bowel prep. 2) ASA Class III. 3) Diverticulosis left colon. 4) Only fair bowel prep. 5) Small sigmoid colon polyp versus hyperplastic lesion. PROCEDURES:1) Colonoscopy to cecum. 2) Hot biopsy sigmoid colon polyp. SURGEON: Dr. Alexy Keys M.D. ANESTHESIA: MAC. Please see anesthesia note. ESTIMATED BLOOD LOSS: Minimal. INDICATIONS: As noted above. Risks and benefits explained in detail but not limited to and consent obtained. DESCRIPTION OF PROCEDURE AND FINDINGS: The patient is taken to the endoscopy room. MAC anesthesia induced. She did have some small internal and external hemorrhoids. The colonoscope is passed up through the tortuous sigmoid, descending, transverse and ascending colon. With positioning on her back and external pressure, the scope was able to be passed around to cecum. Appendiceal orifice and valve well visualized and photo documented. Prep overall was only fair with a moderate amount of liquidy semisolid stool limiting the exam for very small lesions this is suctioned irrigated out as clear as possible. The patient's ASA Class is III. The scope is carefully withdrawn over the next 12 minutes suctioning and irrigating out the liquidy stool as well as possible. She did have some diverticulosis in the left colon. She did have a small sigmoid colon early polyp versus hyperplastic lesion removed with hot biopsy polypectomy. Good hemostasis noted. Otherwise, she had some small internal and external hemorrhoids, question whether that was the source of her rectal bleeding. There is no visible large mass or obstructing lesion. Again, the prep did limit the exam a little bit. The patient did have some spasm and respiratory issues. Please see anesthesia notes. The surgical part of the procedure she tolerated okay. I went out to the waiting room to look for family to discuss the findings with. ADDENDUM: Later I was informed because of the patient's secretions and medical problems they admitted her to the hospital for medical reasons. Otherwise, when she is released she will follow up in the office.
--- NOTE | 2024-01-19 08:46 | XRAY ---
Indication: Short of breath. Comparison: One day earlier. Portable chest unchanged and remains clear again with incidental minimal left upper lobe fibrosis/scarring. Heart not enlarged again with CABG. No new/acute abnormalities.
[2024-01-19] MEDS: ZOCOR 20MG PO SCH (09:24)
[2024-01-19] MEDS: Imdur 30 MG PO SCH (09:25)
[2024-01-19] MEDS: SYNTHROID 125 MCG PO SCH (09:25)
[2024-01-19] MEDS: Toprol Xl 50 MG PO SCH (09:25)
[2024-01-19] MEDS: Klor Con PO SCH (09:26)
[2024-01-19] MEDS: JARDIANCE PO SCH (09:26)
[2024-01-19] MEDS ORDERED: NON-FORMULARY ITEM (Multivitamin [Multi-Vitamin Daily] 1 EACH Tablet) PO SCH (10:00)
[2024-01-19] MEDS ORDERED: [UNRECOGNIZED DRUG - MIXTURE] PO SCH (10:00)
[2024-01-19] MEDS ORDERED: SYNTHROID 112 MCG PO SCH (10:00)
[2024-01-19] MEDS ORDERED: NON-FORMULARY ITEM (Atorvastatin Calcium [Lipitor] 80 MG Tablet) PO SCH (10:00)
[2024-01-19] MEDS ORDERED: Toprol-Xl 25MG Tablets PO SCH (10:00)
[2024-01-19] MEDS: ECOTRIN 81 MG PO SCH (10:02)
--- NOTE | 2024-01-19 10:06 | PCM.DS ---
Discharge Summary Date of Admission: 01/18/24 15:28 Date of Discharge: 01/19/24 Admitting Physician: COLLIN RYAN MD Primary Care Provider: GABRIELLA CHIANG DO Allergies Allergies etodolac Allergy (Severe, Verified 01/18/24 11:10) Shortness of Breath risedronate sodium [From Actonel] Allergy (Severe, Verified 01/18/24 11:10) Hives adhesive tape Allergy (Intermediate, Verified 01/18/24 11:10) Rash latex Adverse Reaction (Intermediate, Verified 01/18/24 11:10) Rash Anesthetics - Amide Type - Select A Adverse Reaction (Verified 01/18/24 11:10) slow to wake up Hospital Summary - Hospital Course Hospital Course: is a 78 year old female with a pmhx of HTN, COPD(no home oxygen), HLD, DMII, arthritis, AFIB, ELANA (CPAP at night), CAD (s/p triple bipass 3 years ago), and breast cancer (1982)who presents s/p colonoscopy (due to rectal bleeding/h/o colon cancer),for observation after she experienced laryngospasm with exacerbation of her bronchitis. According to report, oxygen saturations dipped into the 80's. Patient was placed on non-rebreather and received solumedrol 125mg, recovering to mid 90's. Suspect aspiration pneumonitis. Dyspnea and cough have improved. Lung sounds on auscultation coarse with exp wheezing. CXR inital and repeat showing non-acute chest. Patient is requesting discharge today. Will send her home on augmentin/prednisone. Will wean oxygen or set up for home use if needed. She sees Dr. Wang as OP, she does have nebulizer machine with supplies as well as bronchodilators. Advised follow up with PCP/Pulm. Discharge Note New Diagnosis: Aspiration pneumonitis New Medications: Augmentin/prednisone Follow Up: PCP/pulm Latest Assessment & Plan (1) Aspiration pneumonitis Current Visit: Yes Status: Acute Assessment & Plan: -s/p colonoscopy -CXR nonacute with chronic features -Plan for repeat CXR tomorrow -RT eval -Supplemental oxygen with goal spo2 > 92% -Solumedrol 40mg bid -tele -Nebs/INH Code(s): J69.0 - PNEUMONITIS DUE TO INHALATION OF FOOD AND VOMIT (2) COPD (chronic obstructive pulmonary disease) Current Visit: No Status: Chronic Assessment & Plan: -supplemental oxygen with goal spo2 >92% -Baseline RA, CPAP QHS (3) Type 2 diabetes mellitus Current Visit: No Status: Chronic Assessment & Plan: -SSI -ADA -A1c (4) Afib Current Visit: Yes Status: Acute Assessment & Plan: -continue home med metoprolol Code(s): I48.91 - UNSPECIFIED ATRIAL FIBRILLATION (5) HTN (hypertension) Current Visit: Yes Status: Acute Assessment & Plan: -stable, home meds continued Code(s): I10 - ESSENTIAL (PRIMARY) HYPERTENSION I spent 35 minutes [id number] with the patient on the day of discharge performing discharge exam, discussing hospital stay and discharge instructions with patient and caregivers, preparation of discharge records, prescriptions & referral forms and addressing any questions/concerns the patient had as documented above. - Vitals & Intake/Output Vital Signs: Vital Signs Temperature 98 F 01/19/24 06:43 Pulse Rate 80 01/19/24 07:11 Respiratory Rate 16 01/19/24 07:11 Blood Pressure 139/62 01/19/24 06:43 O2 Sat by Pulse Oximetry 97 01/19/24 07:11 Intake & Output: Intake & Output 01/16/24 01/17/24 01/18/24 01/19/24 11:59 11:59 11:59 11:59 Intake Total 1000 Balance 1000 Weight 112 kg 112 kg - Lab Result Diagrams: 01/19/24 04:30 01/19/24 04:30 Lab Results-Last 24 Hrs: Lab Results-Last 24 Hours 01/18/24 01/18/24 01/18/24 Range/Units 11:16 17:45 17:45 WBC 8.0 (4.0-10.5) x10^3/uL RBC 4.87 (4.1-5.4) x10^6/uL Hgb 14.3 (12.0-16.0) g/dL Hct 45.0 (35-47) % MCV 92.4 (78-100) fL MCH 29.4 (26-32) pg MCHC 31.8 L (32-36) g/dL RDW 13.7 (11.5-14.0) % Plt Count 265 (150-450) x10^3/uL MPV 9.3 (7.5-11.0) fL Sodium 139 (135-145) mmol/L Potassium 3.2 L (3.5-5.1) mmol/L Chloride 104 (98-107) mmol/L Carbon Dioxide 23 (22-30) mmol/L Anion Gap 14.8 (5-15) MEQ/L BUN 11 (7-17) mg/dL Creatinine 1.20 H (0.52-1.04) mg/dL Estimated GFR 46.6 ML/MIN Glucose 184 H (74-106) mg/dL POC Glucometer 126 H (74 to 106) mg/dL Hemoglobin A1c (4.5-6.0) % Calcium 9.2 (8.4-10.2) mg/dL Total Bilirubin 0.90 (0.2-1.3) mg/dL AST 25 (14-36) U/L ALT 19 (0-35) U/L Alkaline Phosphatase 79 (38-126) U/L Serum Total Protein 7.1 (6.3-8.2) g/dL Albumin 4.1 (3.5-5.0) g/dL 01/18/24 01/18/24 01/18/24 Range/Units 17:45 20:30 21:02 WBC (4.0-10.5) x10^3/uL RBC (4.1-5.4) x10^6/uL Hgb (12.0-16.0) g/dL Hct (35-47) % MCV (78-100) fL MCH (26-32) pg MCHC (32-36) g/dL RDW (11.5-14.0) % Plt Count (150-450) x10^3/uL MPV (7.5-11.0) fL Sodium (135-145) mmol/L Potassium 3.1 L (3.5-5.1) mmol/L Chloride (98-107) mmol/L Carbon Dioxide (22-30) mmol/L Anion Gap (5-15) MEQ/L BUN (7-17) mg/dL Creatinine (0.52-1.04) mg/dL Estimated GFR ML/MIN Glucose (74-106) mg/dL POC Glucometer 260 H (74 to 106) mg/dL Hemoglobin A1c 4.99 (4.5-6.0) % Calcium (8.4-10.2) mg/dL Total Bilirubin (0.2-1.3) mg/dL AST (14-36) U/L ALT (0-35) U/L Alkaline Phosphatase (38-126) U/L Serum Total Protein (6.3-8.2) g/dL Albumin (3.5-5.0) g/dL 01/19/24 01/19/24 01/19/24 Range/Units 04:30 04:30 06:17 WBC 15.1 H (4.0-10.5) x10^3/uL RBC 4.43 (4.1-5.4) x10^6/uL Hgb 13.1 (12.0-16.0) g/dL Hct 40.4 (35-47) % MCV 91.2 (78-100) fL MCH 29.6 (26-32) pg MCHC 32.4 (32-36) g/dL RDW 13.6 (11.5-14.0) % Plt Count 272 (150-450) x10^3/uL MPV 9.4 (7.5-11.0) fL Sodium 138 (135-145) mmol/L Potassium 3.7 (3.5-5.1) mmol/L Chloride 105 (98-107) mmol/L Carbon Dioxide 25 (22-30) mmol/L Anion Gap 12.6 (5-15) MEQ/L BUN 15 (7-17) mg/dL Creatinine 1.12 H (0.52-1.04) mg/dL Estimated GFR 50.7 ML/MIN Glucose 173 H (74-106) mg/dL POC Glucometer 143 H (74 to 106) mg/dL Hemoglobin A1c (4.5-6.0) % Calcium 9.0 (8.4-10.2) mg/dL Total Bilirubin 0.60 (0.2-1.3) mg/dL AST 19 (14-36) U/L ALT 15 (0-35) U/L Alkaline Phosphatase 67 (38-126) U/L Serum Total Protein 6.5 (6.3-8.2) g/dL Albumin 3.6 (3.5-5.0) g/dL Micro Results-Entire Visit: Accuchecks Date 01/19/24 Time 06:43 - Radiology Exams Ordered Rad Exams-Entire Visit: Radiology Procedures Category Date Time Status CHEST 1 VIEW (PORTABLE) Routine Exams 01/19/24 08:00 Completed CHEST 1 VIEW (PORTABLE) Stat Exams 01/18/24 13:06 Completed - Procedures and Test Procedures and Tests throughout Hospitalization: Therapy Orders & Screens 01/18/24 13:06 Respiratory Therapy Assessment DAILY Comment: Diagnosis: history of polpys 01/18/24 16:03 RT Screen per Nursing Assess ONCE Comment: Protocol Order Physician Instructions: Greater than 3 points order RT Admission Screen Reason For Exam: Triggered on Admission Diagnosis: S/P COLONOSCOPY W/ LARNGOSPASM, EXAC OF CHRONIC BRONCHITIS REQ SUPP O2 Diagnosis: S/P COLONOSCOPY W/ LARNGOSPASM, EXAC OF CHRONIC BRONCHITIS REQ SUPP O2 Pneumonia: No Home O2: No Asthma: Yes CHF: No Home CPAP/BIPAP: Yes: cpap Home Nebs/MDI: Yes: both Total Points: 14 01/18/24 16:17 Oxygen NASAL CANNULA 2 lpm Comment: Diagnosis: S/P COLONOSCOPY W/ LARNGOSPASM, EXAC OF CHRONIC BRONCHITIS REQ SUPP O2 01/18/24 17:21 Respiratory Therapy Consult ONCE Comment: Reason For Exam: Diagnosis: S/P COLONOSCOPY W/ LARNGOSPASM, EXAC OF CHRONIC BRONCHITIS REQ SUPP O2 Discharge Exam General Appearance: no apparent distress Neurologic Exam: alert, oriented x 3, cooperative Eye Exam: PERRL Ears, Nose, Throat Exam: normal ENT inspection Neck Exam: normal inspection Respiratory Exam: crackles/rales, wheezing Cardiovascular Exam: regular rate/rhythm, normal heart sounds Gastrointestinal/Abdomen Exam: normal bowel sounds Pelvic Exam: deferred Rectal Exam: deferred Back Exam: normal inspection Extremity Exam: normal inspection Skin Exam: normal color Final Diagnosis/Problem List - Final Discharge Diagnosis/Problem (1) Aspiration pneumonitis Current Visit: Yes Status: Acute Code(s): J69.0 - PNEUMONITIS DUE TO INHALATION OF FOOD AND VOMIT (2) COPD (chronic obstructive pulmonary disease) Current Visit: No Status: Chronic (3) Type 2 diabetes mellitus Current Visit: No Status: Chronic (4) Afib Current Visit: Yes Status: Chronic Code(s): I48.91 - UNSPECIFIED ATRIAL FIBRILLATION (5) HTN (hypertension) Current Visit: Yes Status: Chronic Code(s): I10 - ESSENTIAL (PRIMARY) HYPERTENSION - Discharge Disposition: Home, Self-Care Condition: Stable Prescriptions: New Amox Tr/Potass Clav. 875 mg [Augmentin 875-125 Tablet] 875 mg PO BID 7 Days #14 tablet Prednisone 20 mg [Deltasone 20 mg] 20 mg PO BID 5 Days #10 tablet Continue Potassium Chloride Tab* [Klor Con] 20 meq PO DAILY Aspirin EC 81 mg [Ecotrin 81 mg] 1 tab PO DAILY #0 Trazodone HCl 50 mg [Desyrel 50 mg] 50 mg PO HSPRN PRN #30 tablet PRN Reason: Insomnia Isosorbide Mononitrate 30 mg [Imdur 30 MG] 30 mg PO DAILY Atorvastatin Calcium [Lipitor] 80 mg PO DAILY Metoprolol Succinate 25 mg Xl* [Toprol-Xl 25MG Tablets] 50 mg PO DAILY Ondansetron ODT 4 MG [Zofran Odt 4 mg] 4 mg PO Q4H PRN PRN 14 Days #20 tab.rapdis PRN Reason: Nausea/Vomiting Levothyroxine Sodium 112 Mcg [Synthroid 112 Mcg] 125 mcg PO QAM ALPRAZolam 1 MG [Xanax 1 mg] 0.5 mg PO UD Furosemide 20 mg [Lasix 20 mg] 20 mg PO UD Ipratropium [place] 0.5 mg [Atrovent 0.5MG NEBULE] 1 vial IH Q6HPRN PRN PRN Reason: Shortness Of Breath Empagliflozin [Jardiance] 10 mg PO DAILY Multivitamin [Multi-Vitamin Daily] 1 tab PO DAILY prednisoLONE [Prednisolone] 10 mg PO UD Semaglutide [Ozempic] 0.25 mg SQ WEEKLY Cyanocobalamin/Cobamamide [Vitamin B-12 5,000 Mcg Tab Sl] 1,000 mcg PO DAILY Acetaminophen 325 mg [Tylenol 325 mg] 325 mg PO UD PRN PRN Reason: Pain Cholecalciferol (Vitamin D3) [Vitamin D-400] 1 tab PO UD Follow up with: GABRIELLA CHIANG DO [Primary Care Provider] - KATHY WANG [ACTIVE STAFF] - 1 Week
[2024-01-19] MEDS: MEDICATION ON HOLD MC SCH (10:07)
[2024-01-19 12:05] VITALS: BP 133/70; PULSE 77; RESP 17; TEMP 98.3; O2SAT 95
== END 2024-01-19 13:32 | disposition home or self-care (01) ==
LOC: SDC 10:54 → MED SURG 15:28
PROVIDERS: ADMIT Internal Medicine; ATTEND Surgery
DX: J69.0 Pneumonitis due to inhalation of food and vomit (principal); I10 Essential (primary) hypertension; J44.9 Chronic obstructive pulmonary disease, unspecified; E78.5 Hyperlipidemia, unspecified; E11.9 Type 2 diabetes mellitus without complications; I48.91 Unspecified atrial fibrillation; I25.10 Atherosclerotic heart disease of native coronary artery without angina pectoris; K57.30 Diverticulosis of large intestine without perforation or abscess without bleeding; K63.5 Polyp of colon; K64.4 Residual hemorrhoidal skin tags; K64.8 Other hemorrhoids; Z85.3 Personal history of malignant neoplasm of breast; Z80.0 Family history of malignant neoplasm of digestive organs; Z80.8 Family history of malignant neoplasm of other organs or systems; Z95.0 Presence of cardiac pacemaker; Z09 Encounter for follow-up examination after completed treatment for conditions other than malignant neoplasm; Z86.010 Personal history of colon polyps; Z12.11 Encounter for screening for malignant neoplasm of colon
CPT/HCPCS: 36415; 71045; 80053; 82947; 83036; 84132; 85027; 93268; 94640; 94760; 94762; 99100; J0330; J1817; J2405; J2704; J2920; A9270-GY; G0378

== ENCOUNTER 2024-02-20 10:35 | Emergency (ER) | payer MEDICARE ==
--- NOTE | 2024-02-20 10:41 | ERPHSYRPT ---
- History of Present Illness Time Seen by Provider: 02/20/24 10:40 Source: patient, family Exam Limitations: no limitations Physician History: This is a 78-year-old white female patient Dr. Chiang who presents with chemical exposure to the patient's right eye. Patient was cleaning off a couch with 90% alcohol spray prior to arrival. They were using the spray to rid the couch of potential bedbugs. Some of the spray entered the patient's right eye and she felt irritation. Patient arrives to the emergency department for evaluation/management. Poison control was notified and they recommended flushing the eye for 15 to 20 minutes which we performed. Patient has a history of hypertension, COPD, diabetes, atrial fibrillation, coronary disease (CABG) cataracts, macular degeneration, Lopez's palsy, rheumatoid arthritis, osteoporosis and has a history of breast cancer and colon cancer. Patient takes prednisolone 10 mg as needed. She only has enough of the steroid for today. Timing/Duration: today Location: right eye Severity: mild (Moderate) Associated Symptoms: burning, sensitivity to light, redness Visual Assistive Devices: None Chemical Exposure: Yes (90% alcohol spray. Brief exposure) Trauma: No Welding Arc/Tanning Bed Exposure: No Allergies/Adverse Reactions: etodolac Allergy (Severe, Verified 02/20/24 10:39) Shortness of Breath risedronate sodium [From Actonel] Allergy (Severe, Verified 02/20/24 10:39) Hives adhesive tape Allergy (Intermediate, Verified 02/20/24 10:39) Rash latex Adverse Reaction (Intermediate, Verified 02/20/24 10:39) Rash Anesthetics - Amide Type - Select A Adverse Reaction (Verified 02/20/24 10:39) slow to wake up Home Medications: Potassium Chloride Tab* [Klor Con] 20 meq PO DAILY 07/04/16 [History] Atorvastatin Calcium [Lipitor] 80 mg PO DAILY 04/08/21 [History] Isosorbide Mononitrate 30 mg [Imdur 30 MG] 30 mg PO DAILY 04/08/21 [History] Metoprolol Succinate 25 mg Xl* [Toprol-Xl 25MG Tablets] 50 mg PO DAILY 04/08/21 [History] ALPRAZolam 1 MG [Xanax 1 mg] 0.5 mg PO UD 01/14/24 [History] Acetaminophen 325 mg [Tylenol 325 mg] 325 mg PO UD PRN 01/14/24 [History] Cholecalciferol (Vitamin D3) [Vitamin D-400] 1 tab PO UD 01/14/24 [History] Cyanocobalamin/Cobamamide [Vitamin B-12 5,000 Mcg Tab Sl] 1,000 mcg PO DAILY 01/14/24 [History] Empagliflozin [Jardiance] 10 mg PO DAILY 01/14/24 [History] Furosemide 20 mg [Lasix 20 mg] 20 mg PO UD 01/14/24 [History] Ipratropium [place] 0.5 mg [Atrovent 0.5MG NEBULE] 1 vial IH Q6HPRN PRN 01/14/24 [History] Levothyroxine Sodium 112 Mcg [Synthroid 112 Mcg] 125 mcg PO QAM 01/14/24 [History] Multivitamin [Multi-Vitamin Daily] 1 tab PO DAILY 01/14/24 [History] Semaglutide [Ozempic] 0.25 mg SQ WEEKLY 01/14/24 [History] prednisoLONE [Prednisolone] 10 mg PO UD 01/14/24 [History] Hx Tetanus, Diphtheria Vaccination/Date Given: Yes Hx Influenza Vaccination/Date Given: Yes Hx Pneumococcal Vaccination/Date Given: Yes Travel Risk - International Travel Have you traveled outside of the country in past 3 weeks: No - Emerging Infectious Disease Are you exhibiting symptoms associated with any current EIDs: No - Review of Systems Constitutional: No Symptoms Eyes: Eye Redness (Right I), Other (Right eye burning) Ears, Nose, & Throat: No Symptoms Respiratory: No Symptoms Cardiac: No Symptoms Abdominal/Gastrointestinal: No Symptoms Genitourinary Symptoms: No Symptoms Musculoskeletal: No Symptoms Skin: No Symptoms Neurological: No Symptoms Psychological: No Symptoms Endocrine: No Symptoms Hematologic/Lymphatic: No Symptoms Immunological/Allergic: No Symptoms All Other Systems: Reviewed and Negative - Past Medical History Pertinent Past Medical History: Yes Neurological History: Other ENT History: Cataracts, Macular Degeneration Cardiac History: Arrhythmia, High Cholesterol, Hypertension, Other Respiratory History: Asthma, COPD, Pneumonia, Sleep Apnea Endocrine Medical History: Diabetes Type II, Hypothyroidism Musculoskeletal History: Osteoporosis, Rheumatoid Arthritis GI Medical History: No Pertinent History History: Other Psycho-Social History: Depression Female Reproductive Disorders: Breast Cancer Other Medical History: bladder leakage, restless legs, irregular heart beat per pt. bells palsy. gout. Left sided Breast CA in 1982. CABG in 2020 - Past Surgical History Past Surgical History: Yes Neuro Surgical History: Other Cardiac: CABG, Cardiac Catheterization Respiratory: No Pertinent History Gastrointestinal: Appendectomy, Cholecystectomy Genitourinary: No Pertinent History Musculoskeletal: Orthopedic Surgery, Other Female Surgical History: Hysterectomy, Lumpectomy Other Surgical History: nerve from neck to face repaired from bells palsy, bilateral knee replacement, bilator rotator cuff, feet and toes surgeries, R hand carpal tunnel repair. r hand 4 fingers surgery. partial hysterectomy; left hand carpal tunnel surgery. Significant Family History: cancer (3 sisters with breast cancer, mother with breast cancer and was diseased from colon cancer. Uncle with breast cancer and mulitple aunts with breast cancer.) - Social History Smoking Status: Never smoker Exposure to second hand smoke: No Alcohol Use: None Drug Use: none Patient [place] Alone: [place] - Nursing Vital Signs Nursing Vital Signs: Initial Vital Signs Temperature 97.2 F 02/20/24 10:35 Pulse Rate 70 02/20/24 10:35 Respiratory Rate 20 02/20/24 10:35 Blood Pressure 155/122 02/20/24 10:35 O2 Sat by Pulse Oximetry 100 02/20/24 10:35 Pain Scale Pain Intensity 10 - Physical Exam General Appearance: no apparent distress, alert, anxiety Eye Exam: right eye: conjunctival inflammation, other (Almost appears slightly dry.), left eye: normal inspection, bilateral eye: PERRL, EOMI Ears, Nose, Throat Exam: normal ENT inspection, moist mucous membranes Neck Exam: normal inspection, non-tender, supple, full range of motion Respiratory Exam: airway intact, No chest tenderness, No respiratory distress Gastrointestinal Exam: No tenderness Extremity Exam: normal inspection, normal range of motion, pelvis stable Neurologic: alert, oriented x 3, cooperative, personal support worker II-XII nml as tested, normal mood/affect, nml cerebellar function, nml station & gait, sensation nml Skin Exam: normal color, warm, dry Lymphatic: No adenopathy SpO2 Interpretation: normal O2 Delivery: Room Air Procedures - Eye Procedure Time of Procedure: 11:00 Tetracaine Drops Administered: Yes Antibiotic Oinment/Drps Admin: right eye - Course Nursing assessment & vital signs reviewed: Yes Ordered Tests: Medication Summary Generic Name Dose Route Start Last Admin Trade Name Gray PRN Reason Stop Dose Admin Erythromycin 1 gm 02/20/24 11:02 Erythromycin Base 1 Gm Tube Eye Ointment OP 02/20/24 11:03 STAT STA Tetracaine HCl 4 ml 02/20/24 11:02 Tetracaine Hcl/Pf 4 Ml Bottle OP 02/20/24 11:03 STAT STA Discontinued Medications Generic Name Dose Route Start Last Admin Trade Name Gray PRN Reason Stop Dose Admin Erythromycin Confirm 02/20/24 11:00 Erythromycin Base 1 Gm Tube Eye Ointment Administered 02/20/24 11:01 Dose 1 gm .ROUTE .STK-MED ONE Tetracaine HCl Confirm 02/20/24 10:58 Tetracaine Hcl/Pf 4 Ml Bottle Administered 02/20/24 10:59 Dose 4 ml OP .STK-MED ONE - Progress Progress: improved, pain not gone completely, re-examined Progress Note: 02/20/24 11:10 My medical decision making and the assignment of low complexity to this patient's medical issue today is based on review of the patient's past medical history, review of the patient's medication list, review of patient drug allergy list and physical findings on examination. This patient does not require radiographic or laboratory studies. Differential diagnosis includes chemical closure causing keratitis, corneal a brasion Counseled pt/family regarding: diagnosis, need for follow-up Medical Desision Making - Diagnostic Testing Diagnostic test were ordered, analyzed, and reviewed by me: No - Risk of complications The pt has a mod risk of morbidity or mortality based on: Need for prescription drug management - Departure Departure Disposition: Home Clinical Impression: Chemical keratitis Condition: Stable Critical Care Time: No Referrals: GABRIELLA CHIANG DO [Primary Care Provider] - Follow up/PCP as directed Additional Instructions: Cool or warm compresses to area 3 times a day. Whichever is more comforting. Placed the antibiotic ointment in the right eye as prescribed. Increase your prednisolone to 3 times a day for the next 48 hours. Call your jail keeper or actuarial intern on 02/22/2024, to make arrangements to be seen in the next 2 to 3 days. And Tylenol for comfort. Prescriptions: Erythromycin Base 3.5 gm [Erythromycin 3.5 GM OPHTH.] 3.5 gm OP QID #1 unit prednisoLONE [Prednisolone] 10 mg PO TID #30 tablet
[2024-02-20] MEDS ORDERED: TETRACAINE 0.5% STERI-UNIT SOL OP ONE (10:58)
[2024-02-20] MEDS ORDERED: Erythromycin 1 GM ONE (11:00)
[2024-02-20 11:02] VITALS: TEMP 97.2; O2SAT 100
[2024-02-20] MEDS: TETRACAINE 0.5% STERI-UNIT SOL OP STA (11:06)
[2024-02-20] MEDS: Erythromycin 1 GM OP STA (11:07)
[2024-02-20 11:16] VITALS: BP 191/83; PULSE 83; RESP 18
== END 2024-02-20 11:41 | disposition home or self-care (01) ==
LOC: ED 10:35
DX: H16.8 Other keratitis (principal); H57.11 Ocular pain, right eye; I10 Essential (primary) hypertension; E11.9 Type 2 diabetes mellitus without complications; Z79.52 Long term (current) use of systemic steroids; Z79.84 Long term (current) use of oral hypoglycemic drugs; Z79.85 Long-term (current) use of injectable non-insulin antidiabetic drugs; Z79.899 Other long term (current) drug therapy
CPT/HCPCS: 99281; A9270-GY

== ENCOUNTER 2024-05-03 10:16 | Emergency (ER) | payer MEDICARE ==
[2024-05-03 10:31] VITALS: RESP 20; TEMP 97.6
[2024-05-03 11:18] VITALS: O2SAT 98
--- NOTE | 2024-05-03 11:44 | XRAY ---
Indication: Pain, constipation, and vomiting. Multiple contiguous axial images obtained through the abdomen and pelvis without contrast. Comparison: None Lung bases demonstrates mild bilateral subsegmental atelectasis/scarring. Heart not enlarged. Small hiatal hernia. Noncontrasted stomach and bowel loops appear nonobstructed. Moderate diffuse scattered colonic fecal debris throughout. Scattered sigmoid diverticulosis without diverticulitis. Previous reported appendectomy, cholecystectomy, and hysterectomy. No free fluid/air. Remaining liver, pancreas, spleen, adrenal glands, kidneys, ureters, and bladder are unremarkable for noncontrast exam. Mild scattered aortoiliac calcifications without AAA. Osseous structures intact with osteopenia and minimal double curvature scoliosis. Mild/moderate degenerative changes throughout thoracolumbar spine and both hips. No ventral or inguinal hernias. Impression: 1. Moderate diffuse fecal stasis and sigmoid diverticulosis. 2. Chronic findings including hiatal hernia, arteriosclerotic disease, and chronic bony findings. 3. Remaining CT abdomen/pelvis without contrast exam is negative.
--- NOTE | 2024-05-03 12:01 | ERPHSYRPT ---
- History of Present Illness Time Seen by Provider: 05/03/24 10:40 Source: patient Exam Limitations: no limitations Patient Subjective Stated Complaint: Pt states "I have not had a bowel movement in about 14 days. I have tried everything even the stuff they give you for c oloscopies. I am now even throwing up bowel when I try to eat." Triage Nursing Assessment: Pt presented alert and oriented X 3, skin pwd. Pt ambulates with an upright slow gait with a cane. PT rubbing her abdomen. PT abdomen soft and tender in all quadrants. Physician History: 78-year-old female presents to our ED for evaluation of constipation. Patient states she has not had a bowel movement in 14 days. Patient feels bloated. Patient states she has been vomiting bilious emesis. No abdominal pain per se. Patient is passing gas. No trauma no fever. Symptoms are constant. Symptoms are moderate in intensity. Patient has been taking [id number] laxatives without relief. Patient otherwise feels well she voices no other complaints or concerns at this time. Portions of this note were created with voice recognition technology. There may be grammatical, spelling, punctuation or sound alike errors Timing/Duration: today, week(s) (2 weeks) Severity: moderate Modifying Factors: Improves With: nothing Associated Symptoms: denies symptoms Allergies/Adverse Reactions: etodolac Allergy (Severe, Verified 02/20/24 10:39) Shortness of Breath risedronate sodium [From Actonel] Allergy (Severe, Verified 02/20/24 10:39) Hives adhesive tape Allergy (Intermediate, Verified 02/20/24 10:39) Rash latex Adverse Reaction (Intermediate, Verified 02/20/24 10:39) Rash Anesthetics - Amide Type - Select A Adverse Reaction (Verified 02/20/24 10:39) slow to wake up Home Medications: Potassium Chloride Tab* [Klor Con] 20 meq PO DAILY 07/04/16 [History] Atorvastatin Calcium [Lipitor] 80 mg PO DAILY 04/08/21 [History] Isosorbide Mononitrate 30 mg [Imdur 30 MG] 30 mg PO DAILY 04/08/21 [History] Metoprolol Succinate 25 mg Xl* [Toprol-Xl 25MG Tablets] 50 mg PO DAILY 0 04/08/21 [History] ALPRAZolam 1 MG [Xanax 1 mg] 0.5 mg PO UD 01/14/24 [History] Acetaminophen 325 mg [Tylenol 325 mg] 325 mg PO UD PRN 01/14/24 [History] Cholecalciferol (Vitamin D3) [Vitamin D-400] 1 tab PO UD 01/14/24 [History] Cyanocobalamin/Cobamamide [Vitamin B-12 5,000 Mcg Tab Sl] 1,000 mcg PO DAILY 01/14/24 [History] Empagliflozin [Jardiance] 20 mg PO DAILY 01/14/24 [History] Ipratropium [place] 0.5 mg [Atrovent 0.5MG NEBULE] 1 vial IH Q6HPRN PRN 01/14/24 [History] Levothyroxine Sodium 112 Mcg [Synthroid 112 Mcg] 125 mcg PO QAM 01/14/24 [History] Multivitamin [Multi-Vitamin Daily] 1 tab PO DAILY 01/14/24 [History] Semaglutide [Ozempic] 1 mg SQ WEEKLY 01/14/24 [History] Hx Tetanus, Diphtheria Vaccination/Date Given: Yes Hx Influenza Vaccination/Date Given: Yes Hx Pneumococcal Vaccination/Date Given: Yes Immunizations Up to Date: No Travel Risk - International Travel Have you traveled outside of the country in past 3 weeks: No - Emerging Infectious Disease Are you exhibiting symptoms associated with any current EIDs: Yes Symptoms: Abdominal Pain - Review of Systems Constitutional: No Symptoms, No Fever, No Chills Eyes: No Symptoms Ears, Nose, & Throat: No Symptoms Respiratory: No Symptoms, No Cough, No Dyspnea Cardiac: No Symptoms, No Chest Pain, No Edema, No Syncope Abdominal/Gastrointestinal: No Symptoms, No Abdominal Pain, No Nausea, No Vomiting, No Diarrhea Genitourinary Symptoms: No Symptoms, No Dysuria Musculoskeletal: No Symptoms, No Back Pain, No Neck Pain Skin: No Symptoms, No Rash Neurological: No Symptoms, No Dizziness, No Focal Weakness, No Sensory Changes Psychological: No Symptoms Endocrine: No Symptoms Hematologic/Lymphatic: No Symptoms Immunological/Allergic: No Symptoms All Other Systems: Reviewed and Negative - Past Medical History Pertinent Past Medical History: Yes Neurological History: Other ENT History: Cataracts, Macular Degeneration Cardiac History: Arrhythmia, High Cholesterol, Hypertension, Other Respiratory History: Asthma, COPD, Pneumonia, Sleep Apnea Endocrine Medical History: Diabetes Type II, Hypothyroidism Musculoskeletal History: Osteoporosis, Rheumatoid Arthritis GI Medical History: No Pertinent History History: Other Psycho-Social History: Depression Female Reproductive Disorders: Breast Cancer Other Medical History: bladder leakage, restless legs, irregular heart beat per pt. bells palsy. gout. Left sided Breast CA in 1982. CABG in 2020 - Past Surgical History Past Surgical History: Yes Neuro Surgical History: Other Cardiac: CABG, Cardiac Catheterization Respiratory: No Pertinent History Gastrointestinal: Appendectomy, Cholecystectomy Genitourinary: No Pertinent History Musculoskeletal: Orthopedic Surgery, Other Female Surgical History: Hysterectomy, Lumpectomy Other Surgical History: nerve from neck to face repaired from bells palsy, bilateral knee replacement, bilator rotator cuff, feet and toes surgeries, R hand carpal tunnel repair. r hand 4 fingers surgery. partial hysterectomy; left hand carpal tunnel surgery. Significant Family History: cancer (3 sisters with breast cancer, mother with breast cancer and was diseased from colon cancer. Uncle with breast cancer and mulitple aunts with breast cancer.) - Social History Smoking Status: Never smoker Exposure to second hand smoke: No Alcohol Use: None Drug Use: none Patient Lives Alone: [place] - Social Determinants of Health Will the patient participate in the screening: Yes Do you worry about a steady place to live?: No Do you have any problems with any of the following?: No known problems In the past 12 months,have you had to go without utilities?: No Transportation Issues: No Has anyone in your support network made you feel unsafe?: No Have you or anyone in your house had to go without enough: No - Nursing Vital Signs Nursing Vital Signs: Initial Vital Signs Temperature 97.6 F 05/03/24 10:26 Pulse Rate 85 05/03/24 10:26 Respiratory Rate 20 05/03/24 10:26 Blood Pressure 169/93 05/03/24 10:26 O2 Sat by Pulse Oximetry 99 05/03/24 10:26 Pain Scale Pain Intensity 3 - Physical Exam General Appearance: no apparent distress, alert Eye Exam: PERRL/EOMI, eyes nml inspection Ears, Nose, Throat Exam: normal ENT inspection, TMs normal, pharynx normal, moist mucous membranes Neck Exam: normal inspection, non-tender, supple, full range of motion Respiratory Exam: normal breath sounds, lungs clear, airway intact, No respiratory distress Cardiovascular Exam: regular rate/rhythm, normal heart sounds, normal peripheral pulses Gastrointestinal/Abdomen Exam: soft, normal bowel sounds, distention, other (Distended abdomen), No tenderness, No mass Back Exam: normal inspection, normal range of motion, No CVA tenderness, No vertebral tenderness Extremity Exam: normal inspection, normal range of motion, pelvis stable Neurologic Exam: alert, oriented x 3, cooperative, normal mood/affect, nml cerebellar function, nml station & gait, sensation nml, No motor deficits Skin Exam: normal color, warm, dry, No rash Lymphatic Exam: No adenopathy SpO2 Interpretation: normal SpO2: 98 O2 Delivery: Room Air - Course Nursing assessment & vital signs reviewed: Yes - Radiology Exams Abdomen X-ray Interpretation: Teleradiologist Report (Small hiatal hernia, moderate diffuse fecal stasis and atherosclerotic disease. Chronic bony findings) Ordered Tests: Active Orders 24 hr Category Date Time Status ABDOMEN AND PELVIS W/0 CONTRAS [CT] Stat Exams 05/03/24 10:38 Completed Medication Summary Discontinued Medications Generic Name Dose Route Start Last Admin Trade Name Freq PRN Reason Stop Dose Admin Ondansetron HCl 4 mg 05/03/24 12:28 05/03/24 12:31 Zofran 4 Mg/Udtablet Orally Disintegrating PO 05/03/24 12:29 4 mg STAT ONE Administration Ondansetron HCl Confirm 05/03/24 12:30 Zofran 4 Mg/Udtablet Orally Disintegrating Administered 05/03/24 12:31 Dose 4 mg .ROUTE .STK-MED ONE Ondansetron HCl Confirm 05/03/24 12:33 Zofran 4 Mg/Udtablet Orally Disintegrating Administered 05/03/24 12:34 Dose 4 mg .ROUTE .STK-MED ONE - Progress Progress: improved Progress Note: 78-year-old female presents to our ED for evaluation of constipation x 14 days. Patient states she vomited bile. Patient tolerated p.o. in our ED. No vomiting. CT scan reveals moderate fecal stasis. No fecal impaction observed. No obstruction. Patient resting comfortably. No abdominal pain. Patient states she is ready for discharge. Patient has no urinary symptomology. 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 She agrees to follow-up with her primary care doctor within 48 hours for reevaluation. Portions of this note were created with voice recognition technology. There may be grammatical, spelling, punctuation or sound alike errors Complexity problem addressed is moderate acute complicated no critical care time complexity of data reviewed and analyzed is moderate. Test ordered test reviewed results analyzed and correlated clinically with history and physical exam. Risk of complication and or risk of morbidity/mortality patient management is moderate. A prescription for Zofran forwarded to patient's pharmacy. Vital stable. Time spent to discharge patient approximately 20 minut es. Plan of care established for shared decision making. No social determinants of health present impede follow-up. portions of this note were created with voice recognition technology. There may be grammatical, spelling, punctuation or sound alike errors 05/03/24 12:50 Counseled pt/family regarding: diagnosis, need for follow-up - Departure Departure Disposition: Home Clinical Impression: Small hiatal hernia , Moderate diffuse fecal stasis Condition: Stable Critical Care Time: No Referrals: GABRIELLA CHIANG DO [Primary Care Provider] - Follow up/PCP as directed Additional Instructions: Discharge/Care Plan ROBERT MUNOZ was seen on 05/03/24 in the Emergency Room. The patient was counseled regarding Diagnosis,Lab results, Imaging studies, need for follow up and when to return to the Emergency Room. Prescriptions given: Discharge Note I have spoken with the patient and/or caregivers. I have explained the patient's condition, diagnosis and treatment plan based on the information available to me at this time. I have answered the patient's and/or caregiver's questions and addressed any concerns. The patient and/or caregivers have as good understanding of the patient's diagnosis, condition and treatment plan as can be expected at this point. The vital signs have been stable. The patient's condition is stable and appropriate for discharge from the emergency department. The patient will pursue further outpatient evaluation with the primary care physician or other designated or consulting physician as outlined in the discharge instructions. The patient and/or caregivers are agreeable to this plan of care and follow-up instructions have been explained in detail. The patient and/or caregivers have received these instruction. The patient/and or caregivers are aware that any significant change in condition or worsening of symptoms should prompt an immediate return to this or the closest emergency department or call 911. Prescriptions: Ondansetron ODT 4 MG [Zofran Odt 4 mg] 4 mg PO Q6H PRN PRN #10 tablet PRN Reason: Vomiting
[2024-05-03 12:07] VITALS: BP 186/82; PULSE 72
[2024-05-03] MEDS ORDERED: ZOFRAN ODT 4 MG ONE ×2 (12:30→12:33)
[2024-05-03] MEDS: ZOFRAN ODT 4 MG PO ONE (12:31)
== END 2024-05-03 13:00 | disposition home or self-care (01) ==
LOC: ED 10:16
DX: K59.89 Other specified functional intestinal disorders (principal); K44.9 Diaphragmatic hernia without obstruction or gangrene; K59.00 Constipation, unspecified; R11.2 Nausea with vomiting, unspecified; E78.5 Hyperlipidemia, unspecified; I10 Essential (primary) hypertension; E11.9 Type 2 diabetes mellitus without complications; Z79.84 Long term (current) use of oral hypoglycemic drugs; Z79.85 Long-term (current) use of injectable non-insulin antidiabetic drugs; Z79.899 Other long term (current) drug therapy
CPT/HCPCS: 74176; 99283; Q0162

== ENCOUNTER 2025-01-04 08:56 | Day surgery (SDC) | payer MEDICARE ==
[2025-01-04] MEDS ORDERED: LIDOCAINE HCL 2% 100 MG/5 ML IJ ONE (08:57)
[2025-01-04] MEDS ORDERED: Lactated Ringers 500 ML IV ONE (09:35)
[2025-01-04] MEDS ORDERED: propofoL IV ONE (10:49)
--- NOTE | 2025-01-04 12:32 | XRAY ---
Indication: Left C2-C4 MBB. Intraoperative fluoroscopy provided for 16 seconds. 2 digital spot images submitted for interpretation demonstrates posterior needle tips projecting over expected left C2-C4 nerve roots. Correlate with intraoperative findings/report.
--- NOTE | 2025-01-04 12:54 | XRAY ---
16 seconds of fluoroscopy was used in surgery for a left C2-C4 MBB.
== END 2025-01-04 11:27 | disposition home or self-care (01) ==
LOC: SDC-PAIN 08:56
PROVIDERS: ATTEND Psychiatry & Neurology Pain Medicine
DX: M47.812 Spondylosis without myelopathy or radiculopathy, cervical region (principal); E11.9 Type 2 diabetes mellitus without complications
CPT/HCPCS: 64490; 64491; 72040; 77002; 82947; J2704

== ENCOUNTER 2025-02-02 08:02 | Day surgery (SDC) | payer MEDICARE ==
[2025-02-02] MEDS ORDERED: BUPIVACAINE 0.5% VIAL IJ ONE (08:03)
[2025-02-02] MEDS ORDERED: Lactated Ringers 500 ML IV ONE (08:42)
[2025-02-02] MEDS ORDERED: propofoL IV ONE (10:04)
--- NOTE | 2025-02-02 19:25 | XRAY ---
11 seconds of fluoroscopy was used in surgery for a left C2-C4 MBB.
--- NOTE | 2025-02-02 19:33 | XRAY ---
Indication: Left C2-C4 MBB. Intraoperative fluoroscopy provided for 11 seconds. 2 digital spot image submitted for interpretation demonstrates posterior needle tips projecting over expected left C2-C4 nerve roots. Correlate with intraoperative findings/report.
== END 2025-02-02 10:33 | disposition home or self-care (01) ==
LOC: SDC-PAIN 08:02
PROVIDERS: ATTEND Psychiatry & Neurology Pain Medicine
DX: M47.812 Spondylosis without myelopathy or radiculopathy, cervical region (principal); E11.9 Type 2 diabetes mellitus without complications
CPT/HCPCS: 64490; 64491; 72040; 82947; J2704

== ENCOUNTER 2025-05-03 07:52 | Day surgery (SDC) | payer MEDICARE ==
[2025-05-03] MEDS ORDERED: XYLOCAINE 2% HCL 20 ML MDV IJ ONE (07:53)
[2025-05-03] MEDS ORDERED: propofoL IV ONE (09:39)
[2025-05-03] MEDS ORDERED: BENADRYL 50 MG/ML ONE (09:44)
[2025-05-03] MEDS ORDERED: Lactated Ringers 1,000 ML IV ONE ×2 (10:02→11:42)
[2025-05-03] MEDS ORDERED: APRESOLINE 20 MG/ML INJ ONE (10:21)
--- NOTE | 2025-05-03 10:31 | XRAY ---
Indication: Right C2-C4 MBB. Intraoperative fluoroscopy provided for 15 seconds. 2 digital spot images submitted for interpretation demonstrates posterior needle tips projecting over expected right C2-C4 nerve roots. Correlate with intraoperative findings/report.
--- NOTE | 2025-05-03 12:03 | XRAY ---
15 seconds of fluoroscopy was used in surgery for a right C2-C4 MBB.
== END 2025-05-03 11:25 | disposition home or self-care (01) ==
LOC: SDC-PAIN 07:52
PROVIDERS: ATTEND Psychiatry & Neurology Pain Medicine
DX: M47.812 Spondylosis without myelopathy or radiculopathy, cervical region (principal); E11.9 Type 2 diabetes mellitus without complications

== ENCOUNTER 2025-06-28 08:13 | Day surgery (SDC) | payer MEDICARE ==
[2025-06-28] MEDS ORDERED: BUPIVACAINE 0.5% VIAL IJ ONE (08:14)
[2025-06-28] MEDS ORDERED: APRESOLINE 20 MG/ML INJ ONE (09:06)
[2025-06-28] MEDS ORDERED: propofoL IV ONE (10:24)
[2025-06-28] MEDS ORDERED: BENADRYL 50 MG/ML ONE (10:27)
[2025-06-28] MEDS ORDERED: Lactated Ringers 1,000 ML IV ONE (10:41)
--- NOTE | 2025-06-28 11:46 | XRAY ---
Indication: Right C2-C4 MBB. Intraoperative fluoroscopy provided for 13 seconds. 3 digital spot image submitted for interpretation demonstrates posterior needle tips projecting over expected right C2-C4 nerve roots. Correlate with intraoperative findings/report.
--- NOTE | 2025-06-28 12:16 | XRAY ---
13 seconds of fluoroscopy was used in surgery for a right C2-C4 MBB.
== END 2025-06-28 11:00 | disposition home or self-care (01) ==
LOC: SDC-PAIN 08:13
PROVIDERS: ATTEND Psychiatry & Neurology Pain Medicine
DX: M47.812 Spondylosis without myelopathy or radiculopathy, cervical region (principal); E11.9 Type 2 diabetes mellitus without complications